=== PATIENT | female | born 1945 | race Two or more races ===

== ENCOUNTER 2016-10-02 08:39 | Observation (INO) | payer MEDICARE, OTHER ==
[~2016-10-02] VITALS: Ht 160 cm; Wt 79.0 kg
[~2016-10-02 08:39] MED LIST: ASPI-664 PO; BIMA2.5D BOTH EYES; CELE200C PO; CHOL2000 PO; CLON-379 PO; CYCL-319 PO; DOXA2TAB PO; EXEN2VIA SQ; EZET10TA3 PO; FEBU80TA PO; HYDR-3498 PO; LEVO50TA83 PO; NALT50TA4 PO; OMEG1CAP30 PO; VALS160T20 PO
[2016-10-02 08:46] VITALS: Ht 160 cm; Wt 79.0 kg
[2016-10-02] MEDS ORDERED: ONDANSETRON 4 MG INJ IV STA ×2 (08:46→09:39)
[2016-10-02] MEDS ORDERED: SOD CHLORIDE 0.9% 500 ML IV STA (08:46)
[2016-10-02 09:09] LABS: ADD SCAN DIFF NO
[2016-10-02 09:19] LABS: BASOPHIL # 0.1 10^3/ul (0.0-0.1); BASOPHILS % 1.3 % (0.0-2.0); EOSINOPHILS # 0.2 10^3/ul (0.0-0.5); EOSINOPHILS % 2.2 % (0.0-7.0); HEMATOCRIT 37.9 % (37.0-47.0); HEMOGLOBIN 12.3 g/dl (12.0-16.0); LYMPHOCYTES # 2.2 10^3/ul (0.8-2.9); MEAN CORPUSCULAR HEMOGLOBIN 29.9 pg (29.0-33.0); MEAN CORPUSCULAR HGB CONC 32.5 g/dl (32.0-37.0); MEAN PLATELET VOLUME 9.8 fl (7.4-10.4); MONOCYTE # 0.4 10^3/ul (0.3-0.9); MONOCYTES % 5.8 % (0.0-11.0); PLATELET COUNT 248 10^3/UL (140-415); RED BLOOD COUNT 4.12 10^6/ul (4.20-5.40); RED CELL DISTRIBUTION WIDTH 14.6 % (11.5-14.5); WHITE BLOOD COUNT 6.9 10^3/ul (4.8-10.8)
[2016-10-02 09:31] LABS: ANION GAP 17 (8-16); BLOOD UREA NITROGEN 25 mg/dl (7-20); CALCIUM 9.2 mg/dl (8.4-10.2); CARBON DIOXIDE 22 mmol/L (21-31); CHLORIDE 110 mmol/L (97-110); CREATININE 0.84 mg/dl (0.44-1.00); GLUCOSE 202 mg/dl (70-220); POTASSIUM 3.9 mmol/L (3.5-5.1); SODIUM 145 mmol/L (135-144)
[2016-10-02] MEDS ORDERED: LORA1TAB ORAL (09:31)
[2016-10-02] MEDS ORDERED: METF500T4 ORAL (09:31)
[2016-10-02] MEDS ORDERED: DOXA4TAB3 ORAL (09:31)
[2016-10-02] MEDS ORDERED: ALLO300T2 ORAL (09:31)
[2016-10-02] MEDS ORDERED: FLUO10CA17 ORAL (09:35)
[2016-10-02] MEDS ORDERED: LIPA1CAP6 PO (09:35)
[2016-10-02] MEDS ORDERED: ATEN-51 ORAL (09:35)
[2016-10-02] MEDS ORDERED: TOPI-44 ORAL (09:35)
[2016-10-02] MEDS ORDERED: LINA145C PO (09:36)
--- NOTE | 2016-10-02 09:37 | RADRPT ---
PROCEDURE: XR Chest. CLINICAL INDICATION: Second V TECHNIQUE: Chest AP portable. COMPARISON: No comparison available. FINDINGS: The mediastinal structures are unremarkable. There is calcification of the thoracic aorta (consiste nt with atherosclerosis). There is mild cardiomegaly. The pulmonary vascularity is normal. There are low lung volumes. There is mild bibasilar subsegmental atelectasis. No consolidation is identi fied. The pleural spaces are unremarkable. There are senescent changes of the axial skeleton. IMPRESSION: Calcification of the thoracic aorta (consistent with atherosclerosis) Mild cardiomegaly Low lung volumes. Bibasilar subsegmental atelectasis RPTAT: HGDB .Trevor Mendosa MD, Date Time Electronically viewed and signed by .Trevor Mendosa MD, on 10/02/2016 09:36 .B/
[2016-10-02] MEDS ORDERED: VALS80TA2 PO (09:38)
--- NOTE | 2016-10-02 09:40 | RADRPT ---
PROCEDURE: CT brain without contrast CLINICAL INDICATION: Syncope TECHNIQUE: CT of the brain without contrast performed on a multidetector CT scanner, with multiplan ar reformats. One or more of the following dose reduction techniques were used: Automated exposure control, adjustment in mA and / or kV according to patient size, use of iterative reconstructive liza hnique. CTDIvol = 44 mGy; DLP = 630 mGy-cm. COMPARISON: None available FINDINGS: No acute intracranial hemorrhage is identified. No extra-axial fluid collection is seen. There is no mass effect. No midline shift is identified. Ventricles and sulci are mildly enlarged compatible with generalized volume loss. There are minimal areas of hypodensity in the periventricular - deep white matter which are nonspeci fic but suggestive of chronic small vessel ischemic changes. Monroe-white differentiation is preserve d. Atherosclerotic calcifications of the proximal intracranial arteries are noted. Osseous structures are unremarkable. Mastoid air cells and imaged paranasal sinuses grossly clear. IMPRESSION: 1. No evidence of acute intracranial pathology. 2. Mild generalized volume loss, with minimal chronic small vessel ischemic changes. RPTAT: AA .Ricky Wiseman MD, MD Date Time Electronically viewed and signed by .Ricky Wiseman MD, MD on 10/02/2016 09:40 .O/
[2016-10-02 09:51] LABS: TROPONIN-I < 0.012 ng/ml (0.00-0.12)
[2016-10-02] MEDS ORDERED: MECLIZINE 12.5 MG TAB PO ONE (10:00)
[2016-10-02] MEDS ORDERED: DILTIAZEM 25 MG INJ IV ONE (10:00)
--- NOTE | 2016-10-02 10:16 | ERA ---
ER Documentation Chief Complaint Date/Time DATE: 10/02/16 TIME: 0846 Chief Complaint nausea,vomiting, dizziness x 1 days HPI 71-year-old female presents to the emergency department for evaluation of dizziness and vomiting. Initially, history was difficult to obtain secondary to language barrier. Family arrived later was able to provide history. Patient was in her usual state of health until the last 8 hours or so which time she awoke with a vertiginous dizziness without headache, focal weakness, numbness. She had nausea with nonbilious nonbloody emesis associated with it. She had no diarrhea. She reports no fevers chills or headache. She continued to feel nauseous and continued to throw up and was brought to the emergency department by ambulance. I have reviewed the director risk pre-hospital care. Pre-hospital vital signs were reviewed. Pre-hospital diagnostic tests were reviewed. ROS All systems reviewed and are negative except as per history of present illness. Medications Home Meds Active Scripts Hydrocodone Bit-Acetaminophen* ([place]*) 5-325 Mg Tab, 1 TAB PO Q6 Y for PAIN, # 20 TAB Prov:DINH FRIED 01/10/15 Cyclobenzaprine Hcl* (Cyclobenzaprine Hcl*) 10 Mg Tablet, 10 MG PO TID, #15 TAB Prov:DINH FRIED 01/10/15 Reported Medications Valsartan* (Diovan*) 80 Mg Tablet, 80 MG PO DAILY, TAB 10/02/16 Linaclotide (LINZESS) 145 Mcg Capsule, 145 MCG PO DAILY, #30 CAP 10/02/16 Eyngln-Mametjzf-Htklbmg* (Manoj MEHTA* 24,000) 24,000 L-76,000-120,000 Unit Capsule.dr, 1 CAP PO WITH MEALS, CAP 10/02/16 Fluoxetine Hcl* (Fluoxetine Hcl*) 10 Mg Capsule, 10 MG ORAL DAILY, #30 10/02/16 Topiramate* (Topiramate*) 25 Mg Tablet, 25 MG ORAL BID, #60 10/02/16 Atenolol* (Atenolol*) 25 Mg Tablet, 25 MG ORAL DAILY, #30 10/02/16 Doxazosin Mesylate* (Doxazosin Mesylate*) 4 Mg Tablet, 4 MG ORAL DAILY, #30 10/02/16 Metformin* (Glucophage*) 500 Mg Tab, 500 MG ORAL BID, #60 10/02/16 Lorazepam* (Lorazepam*) 1 Mg Tablet, 1 MG ORAL DAILY, #30 10/02/16 Allopurinol* (Allopurinol*) 300 Mg Tablet, 300 MG ORAL DAILY, #30 10/02/16 Bimatoprost* ([place]*) 0.01%-2.5 Ml Opht Drops, 1 DROP BOTH EYES HS, EA 01/10/15 Cholecalciferol* (Vitamin D3*) 2,000 Unit Cap, 2000 UNIT PO DAILY, CAP 01/10/15 Fish Oil/[place]-3 Fatty Acids ([place] 3 Fish Oil Softgel) 1 Cap.ec Capsule.dr, 2000 MG PO DAILY, CAP 01/10/15 Ezetimibe* (Zetia*) 10 Mg Tablet, 10 MG PO HS, TAB 01/10/15 Naltrexone Hcl (Depade) 50 Mg Tablet, 50 MG PO DAILY 01/10/15 Celecoxib* (Celebrex*) 200 Mg Capsule, 200 MG PO DAILY, CAP 01/10/15 Febuxostat* (Uloric*) 80 Mg Tablet, 80 MG PO DAILY, TAB 01/10/15 Aspirin (Low Dose Aspirin) 81 Mg Tablet.dr, 81 MG PO DAILY 01/10/15 Levothyroxine Sodium* (Synthroid*) 50 Mcg Tablet, 50 MCG PO AC BREAKFAST, TAB 01/10/15 Clonidine Hcl* (Clonidine Hcl*) 0.1 Mg Tab, 0.1 MG PO DAILY Y for ELEVATED BLOOD PRESSURE, TAB 01/10/15 Exenatide Microspheres (Bydureon) 2 Mg Vial, 2 MG SQ Q7D, VIAL 01/10/15 Discontinued Reported Medications Doxazosin Mesylate* (Doxazosin Mesylate*) 2 Mg Tablet, 2 MG PO BID, TAB 01/10/15 Valsartan* (Diovan*) 160 Mg Tablet, 160 MG PO BID, TAB 01/10/15 Allergies Allergies: Coded Allergies: No Known Allergy (Unverified , 01/10/15) PMhx/Soc History of Surgery: No Anesthesia Reaction: No Hx Neurological Disorder: No Hx Respiratory Disorders: No Hx Cardiac Disorders: No Hx Psychiatric Problems: No Hx Miscellaneous Medical Probl: Yes (dm) Hx Alcohol Use: No Hx Substance Use: No Hx Tobacco Use: No Smoking Status: Never smoker FmHx Noncontributory for chief complaint Physical Exam Vitals Vital Signs Date Time Temp Pulse Resp B/P Pulse Ox O2 Delivery O2 Flow Rate FiO2 10/02/16 08:46 98.1 64 18 147/64 99 Physical Exam GENERAL: The patient is well developed and appropriate for usual state of health in no apparent distress HEENT: Pupils equal, round, and reactive to light. EOMI. There is no scleral icterus. NECK: C-spine is soft and supple, there is no meningismus. There is no cervical lymphadenopathy. LUNGS: Clear to auscultation bilaterally. There are no rales, wheezes or rhonchi. HEART: Regular rate and rhythm, no murmurs, clicks, rubs or gallops. ABDOMEN: Soft, non-tender, non-distended. There are bowel sounds in all four quadrants. No rebound or guarding. EXTREMITIES: There is no peripheral cyanosis or edema. No focal swelling or erythema. NEURO: The patient moves all four extremities with 5/5 strength. Cranial nerves II - XII are intact. Normal gait. Alert and oriented. Patient has normal finger to nose bilaterally. Patient has nystagmus bilaterally. SKIN: There is no apparent rash or petechiae. HEME/LYMPHATIC: There is no evidence of excessive bruising or lymphedema. PSYCHIATRIC: The patient does not appear anxious or depressed. Result Diagram: 10/02/16 0850 10/02/16 0850 Results 24 hrs Laboratory Tests Test 10/02/16 08:50 White Blood Count 6.910^3/ul Red Blood Count 4.1210^6/ul Hemoglobin 12.3g/dl Hematocrit 37.9% Mean Corpuscular Volume 92.0fl Mean Corpuscular Hemoglobin 29.9pg Mean Corpuscular Hemoglobin Concent 32.5g/dl Red Cell Distribution Width 14.6% Platelet Count 89304^3/UL Mean Platelet Volume 9.8fl Neutrophils % 58.0% Lymphocytes % 32.0% Monocytes % 5.8% Eosinophils % 2.2% Basophils % 1.3% Nucleated Red Blood Cells % 0.0/100WBC Neutrophils # 4.010^3/ul Lymphocytes # 2.210^3/ul Monocytes # 0.410^3/ul Eosinophils # 0.210^3/ul Basophils # 0.110^3/ul Nucleated Red Blood Cells # 0.010^3/ul Sodium Level 145mmol/L Potassium Level 3.9mmol/L Chloride Level 110mmol/L Carbon Dioxide Level 22mmol/L Anion Gap 17 Blood Urea Nitrogen 25mg/dl Creatinine 0.84mg/dl Glucose Level 202mg/dl Calcium Level 9.2mg/dl Troponin I < 0.012ng/ml Current Medications Medications (Trade) Dose Ordered Sig/Mi Route PRN Reason Start Time Stop Time Status Last Admin Dose Admin Sodium Chloride (NS) 500 ml @ 500 mls/hr Q1H STAT IV 10/02/16 08:46 10/02/16 09:45 DC 10/02/16 08:58 Ondansetron HCl (Zofran Inj) 4 mg ONCE STAT IV 10/02/16 08:46 10/02/16 08:48 DC 10/02/16 08:58 Ondansetron HCl (Zofran Inj) 4 mg ONCE STAT IV 10/02/16 09:39 10/02/16 09:40 DC 10/02/16 09:45 Meclizine HCl (Antivert) 25 mg ONCE ONCE PO 10/02/16 10:00 10/02/16 10:01 DC Diltiazem HCl (Cardizem Iv) 10 mg ONCE ONCE IV 10/02/16 10:00 10/02/16 10:01 DC Procedures/MDM Patient was taken to a room, seen and evaluated. Comfort measures were initiated. Diagnostic tests were ordered and reviewed. 3 LEAD RHYTHM STRIP: Normal sinus rhythm without ectopy. Patient then went into a rapid atrial fibrillation in the 120s-130s. She then would spontaneously convert back to normal sinus rhythm. EK lead EKG reviewed by myself: Atrial fibrillation with rapid ventricular response Normal [place] and intervals Nonspecific ST and T-wave changes Impression: Nonspecific EKG with atrial fibrillation RADIOLOGY: reviewed with the radiologist CONSULTATION: hospitalist was notified for admission REEVALUATION: Patient remained neurologically nonfocal but continued to be somewhat symptomatic. Diagnostic findings including the atrial fibrillation were discussed with the family and decision was made to admit for observation MEDICAL DECISION MAKIN-year-old female presents the emergency department with vomiting and nystagmus and likely vertigo. Complicating this is the patient's intermittent atrial fibrillation. Although the patient medical presentation is more likely secondary to vertigo, because of the rapid A. fib, I am concerned that this may be cardiac related. Patient's first troponin is reassuring and the patient does not appear to be clinically ischemic from a cardiac standpoint. Patient has no obvious evidence of stroke on clinical examination, but with a history of intermittent A. fib, it is possible the patient has had an occipital stroke with no other significant findings other than the vertigo. At this time, patient will be admitted for further observation management and care. Departure Diagnosis: Primary Impression: Vertigo Additional Impression: Atrial fibrillation Condition: BLANCA Peter October 02, 2016 10:16
[2016-10-02] MEDS ORDERED: ASPIRIN 325 MG TAB PO ONE (10:30)
[2016-10-02] MEDS ORDERED: DEXTROSE 50% 50 ML SYRINGE IV PRN ×2 (11:00)
[2016-10-02] MEDS ORDERED: GLUCOSE GEL 15 GRAM TUBE PO PRN ×2 (11:00)
[2016-10-02] MEDS ORDERED: HYDROCODONE/APAP (5/325) TAB PO PRN (11:00)
[2016-10-02] MEDS ORDERED: GLUCAGON 1 MG INJ IM PRN (11:00)
[2016-10-02] MEDS: [UNRECOGNIZED DRUG - OTHER] XX SCH ×2 (11:00→19:00)
[2016-10-02] MEDS ORDERED: GLUCOSE GEL 15 GRAM TUBE BUCCAL PRN (11:00)
[2016-10-02] MEDS: LORAZEPAM 1 MG TAB PO PRN ×2 (11:01→21:57)
[2016-10-02] MEDS ORDERED: LORAZEPAM 2 MG INJ IV ONE ×2 (11:30→13:00)
[2016-10-02 11:31] LABS: ALBUMIN 3.9 g/dl (3.3-4.9)
[2016-10-02 11:33] LABS: BILIRUBIN,INDIRECT 0.5 mg/dl (0-1.1); BILIRUBIN,TOTAL 0.5 mg/dl (0.2-1.3)
[2016-10-02 11:34] LABS: MAGNESIUM 1.8 mg/dl (1.7-2.5); TOTAL PROTEIN 6.4 g/dl (6.1-8.1)
[2016-10-02 11:51] LABS: PARTIAL THROMBOPLASTIN TIME 26.2 Sec (25.0-35.0); PROTIME 13.2 Sec (12.2-14.2)
[2016-10-02 11:57] VITALS: TEMP 98.3
[2016-10-02] MEDS: CREON (24K-76K-120K) 1 CAP PO SCH ×2 (12:00→17:55)
[2016-10-02] MEDS: INSULIN ASPART [NOVOLOG] 3 ML PEN SC SCH ×3 (12:00→21:00)
--- NOTE | 2016-10-02 12:30 | RADRPT ---
PROCEDURE: US Carotids. CLINICAL INDICATION: Dizziness. Syncope. TECHNIQUE: Sonographic images of the bilateral carotid arteries were obtained using khan scale and color Doppler imaging. The images were reviewed on a PACS workstation. COMPARISON: None available. FINDINGS: Right: CCA 56.6 cm/sec Prox ICA 35.1 cm/sec Mid ICA 62 cm/sec Dist ICA 40 cm/sec ECA 84 cm/sec ICA/CCA 1.9 Left: CCA 44.1-50.6 cm/sec Prox ICA 46.7 cm/sec Mid ICA 93.7 cm/sec Dist ICA 64.9 cm/sec ECA 101.8 cm/sec ICA/CCA 1.9 Antegrade flow is seen within the vertebral arteries bilaterally. There is mild calcified plaque wit hin the carotid bulbs bilaterally. There is no flow-limiting stenosis or thrombosis. IMPRESSION: 1. Mild calcified plaque within the carotid bulbs bilaterally, but no evidence for hemodynamically significant stenosis - validated velocity measurements with angiographic measurements, velocity crit eria are extrapolated from diameter data as defined by the Society of Radiologists in Ultrasound Con sensus Conference Radiology 2003; 229;340-346. This study does indirectly reference the measurement of the distal ICA diameter as the denominator for stenosis measurement. 2. Antegrade flow seen within the vertebral arteries bilaterally. RPTAT: EE .Gurpreet Horta MD, MD Date Time Electronically viewed and signed by .Gurpreet Horta MD, MD on 10/02/2016 12:29 .P/
[2016-10-02] MEDS ORDERED: MECLIZINE 12.5 MG TAB PO PRN (13:00)
[2016-10-02 13:41] LABS: THYROID STIMULATING HORMONE 1.15 MIU/L (0.465-4.680)
[2016-10-02 13:54] VITALS: BP 151/68; RESP 18
[2016-10-02 14:09] VITALS: PULSE 83
--- NOTE | 2016-10-02 15:50 | CONS ---
DATE OF ADMISSION: 10/02/2016 DATE OF CONSULTATION: 10/02/2016 TYPE OF CONSULTATION: Neurology. Thank you, Dr. Panda, for your kind referral for evaluation of vertigo. HISTORY OF PRESENT ILLNESS: The patient was evaluated in the emergency room. She is a 71-year-old lady with past medical history of diabetes, dyslipidemia, hypertension, dysrhyt hmias, depression. The patient stated that in the past, she had few episodes of mild vertiginous se nsation. Last episode a few months ago. This morning, she woke up and did not feel good. She thought that maybe she is hypoglycemic and got up to get a peach and after walking a few steps and eating the peach, suddenly she felt extremely d chong, fell to the ground, started vomiting, called for help. Dizziness has improved after the fall, but she still felt very weak generally with severe nausea and vomiting. CAT scan in the emergency room did not show any acute abnormality. ER note describes presence of nystagmus but did not say wh ich side . She received meclizine, Zofran, and overall doing much better, essentially not havi ng any complaints by the time of my examination. MEDICATIONS: Currently, she is on: 1. Allopurinol. 2. Aspirin 81. 3. Atenolol. 4. Vitamin D. 5. Cardura. 6. Uloric. 7. Fish oil. 8. Prozac 10. 9. Diovan. 10. She was put on Lovenox for DVT prevention. 11. She is on Synthroid. 12. Zetia. 13. Metformin. 14. Topamax 25 twice daily prior to admission. 15. She received meclizine only once and does not have any dizziness anymore. LABORATORY DATA: Shows essentially normal CBC. Comprehensive metabolic panel: 25 BUN, creatinine 0.84. Troponins negative. TSH pending. Normal PT and PTT. ALLERGIES: NONE. SOCIAL HISTORY: No alcohol, tobacco, drug use. FAMILY HISTORY: Noncontributory. REVIEW OF SYSTEMS: All pertinent positives include the above history of present illness. PHYSICAL EXAMINATION: Today: VITAL SIGNS: 98.3 temperature, pulse 80, respiration 18, 135/73 blood pressure. GENERAL: Not in acute distress, lying in bed. HEENT: Normocephalic, atraumatic head. NECK: No carotid bruits. No thyromegaly. LUNGS: Clear to auscultation bilaterally. CARDIAC: Normal cardiac rhythm and sounds. ABDOMEN: Soft, nontender. EXTREMITIES: No cyanosis, clubbing, or edema. NEUROLOGIC: She is awake, alert, and oriented x3 with fluent speech. Cranial nerve examination dali ws intact visual guerrire bilaterally. Pupils round, reactive from 3 to 2 mm bilaterally. Extraocula r movements intact without nystagmus, maybe a few beats of right horizontal nystagmus on the e xtreme of the right gaze was seen. Symmetrical face. Preserved facial strength and sensation. Ton ninfa is in midline. Palate elevates symmetrically. Motor strength examination seems to be preserved in all extremities. Normal bulk, tone, and strength. Sensory examination intact grossly to light touch and pain. Deep tendon reflexes 2+ upper extremities and knees, absent ankle jerks. Downgoing toes bilaterally. Coordination preserved on adutnx-zm-pibyhx testing. No dysmetria or tremor. Ga it was not assessed. IMPRESSION: Acute vertigo, seemed to resolve by now. The patient did have some inability to get up with onset of the vertigo. According to the family, she walked a few steps to the bathroom here an d was doing relatively good. I forgot to mention that patient had episode of atrial fibrillation in the hospital which spontaneously converted to sinus rhythm. To exclude stroke as etiology of her problem, MRI of the brain should be done and was already reques shelia by the primary. Continue aspirin, statin. Continue to keep patient euglycemic. It is usually okay to allow elevated blood pressure in the first few days after acute stroke but given that I am n ot sure that the episode was stroke or transient ischemic attack related but most likely a benign pe ripheral positional vertigo, I think it is okay to keep patient normotensive as well. We will get p hysical therapy to ambulate her, may restart meclizine as needed. Thank you very much for this interesting consultation. Dictated By: ROSARIO BROWNLEE/JILLIAN Conf#: [id number] DID#: [id number]
[2016-10-02 16:13] VITALS: PULSE 81
[2016-10-02 17:47] LABS: CREATINE KINASE 70 IU/L (23-200)
[2016-10-02 17:54] LABS: CK-MB 0.87 ng/ml (0.0-2.4)
[2016-10-02 18:09] LABS: TROPONIN-I < 0.012 ng/ml (0.00-0.12)
--- NOTE | 2016-10-02 18:27 | HP ---
Date/Time of Note Date/Time of Note DATE: 10/02/16 TIME: 18:13 Assessment/Plan VTE Prophylaxis VTE Prophylaxis Intervention: LMWH Lines/Catheters IV Catheter Type (from Nrs): Saline Lock Assessment/Plan Assessment/Plan 71-year-old female who presented with dizziness nausea vomiting now managed as follows: 1. Acute onset dizziness 2. Atrial fibrillation with fluctuating rate control 3. R/o ACS 4. High blood pressure with good control 5. Chronic Glaucoma 6. Dyslipidemia 7. Depression 8. Hypothyroidism 9. Chronic constipation 10. Diabetes type 2 PLAN: * Admit to telemetry * workup dizziness with MRI of the brain, carotid Dopplers, and get neurology consult as well. 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 Lori watkins * resume all previous home medications * Start calorie controlled diet and add sliding scale insulin * Patient on Natrexone, f/u with family re: indication * Further interventions per clinical course * Prophylaxis with Lovenox and Pepcid HPI/ROS Admit Date/Time Admit Date/Time October 02, 2016 at 10:37 Hx of Present Illness This is a 71-year-old female who was brought into the emergency room by ambulance with reports of dizziness and vomiting. 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 Apparently the patient had presented with an 8 hour history of dizziness upon awakening without focal weakness headaches or numbness. It was however associated with nausea and vomiting but without chills or fevers. She does have a history of atrial fibrillation and in the emergency room she was found to have a rapid heart rate. Her dizziness did not improve despite emergency room care and as such she is being admitted for further workup and management. ROS ROS: HEENT: denies headaches, any vertigo, any sore throat or rhinorrhea. Eyes: No double or blurred vision or eye pain. CARDIOVASCULAR: no chest discomfort, chest pain, irregular rhythm, tachycardia or diaphoresis. RESPIRATORY: denies cough or shortness of breath or wheezing. GENITOURINARY: denies dysuria, frequency, urgency or hematuria. MUSCULOSKELETAL: also denies myalgias, arthralgias or edema. SKIN: denies rash or jaundice NEUROLOGIC: denies weakness, dizziness, focal neurological change or headache. PSYCHIATRIC: denies history of depression in the past, any suicidal ideation. substance abuse. ENDOCRINE: denies polyuria, polydipsia or hot or cold intolerance. HEMATOLOGIC: denies history of easy bruising, anemia or eczema. PMH/Family/Social Past Medical History 1. High blood pressure 2. Glaucoma 3. Dyslipidemia 4. Depression 5. Hypothyroidism 6. Chronic constipation 7. Diabetes type 2 8. Paroxysmal atrial fibrillation Past Surgical History Past Surgical Hx: cholecystectomy Family History Significant Family History: no pertinent family hx Social History Alcohol Use: none Smoking Status: Never smoker Drug Use: none Exam/Review of Systems Vital Signs Vitals Vital Signs Date Time Temp Pulse Resp B/P Pulse Ox O2 Delivery O2 Flow Rate FiO2 10/02/16 16:13 81 10/02/16 13:54 97.9 18 151/68 92 10/02/16 11:57 Room Air Exam Exam GENERAL: Patient is alert, oriented x 3, in no apparent distress; does not appear acutely or chronically ill. Patient is able to sit up unassisted.Patient makes good eye contact, is conversant, interactive, coherent. Patient appears calm and comfortable and is able to follow commands. HEENT: Oropharynx is clear. There is no carotid bruit, no masses. Patient's pupils are equal, round and reactive to light bilaterally. Extraocular motions are intact. There is no scleral icterus. There is no facial asymmetry. NECK: Supple. LUNGS: Clear to auscultation bilaterally with good air entry. No Wheezes or crackles. HEART: S1, S2. No murmur, gallops or rubs. Regular rate and rhythm. ABDOMEN: Soft, nontender. Normoactive bowel sounds. There are no stigmata of chronic liver disease. BACK: no costovertebral angle tenderness. GENITOURINARY: Deferred. EXTREMITIES: No edema. There is no cyanosis, clubbing. There are 2+ pulses bilaterally distally. NEUROLOGIC: The patient has no lateralizing signs. Cranial nerves II-XII are intact, patient is lethargic SKIN: Otherwise, unremarkable. Labs Result Diagram: 10/02/16 0850 10/02/16 0850 Medications Medications Current Medications Allopurinol (Zyloprim) 300 mg DAILY PO ; Start 10/03/16 at 09:00 Aspirin (Halfprin) 81 mg DAILY PO ; Start 10/03/16 at 09:00 Atenolol (Tenormin) 25 mg DAILY PO ; Start 10/03/16 at 09:00 Bimatoprost (Lumigan 0.01% Oph) 1 drop HS BOTH EYES ; Start 10/02/16 at 21:00 Cholecalciferol (Vitamin D) 2,000 unit DAILY PO ; Start 10/03/16 at 09:00 Doxazosin Mesylate (Cardura) 4 mg DAILY PO ; Start 10/03/16 at 09:00 EZETIMIBE (Zetia) 10 mg HS PO ; Start 10/02/16 at 21:00 Febuxostat (Uloric) 80 mg DAILY PO ; Start 10/03/16 at 09:00 Fish Oil (Fish Oil) 2,000 mg DAILY PO ; Start 10/03/16 at 09:00 Fluoxetine HCl (Prozac) 10 mg DAILY PO ; Start 10/03/16 at 09:00 Acetaminophen/ Hydrocodone Bitart (Camak (5/325)) 1 tab Q6 PRN PO PAIN; Start 10/02/16 at 11:00 Lorazepam (Ativan) 1 mg DAILY PRN PO anxiety Last administered on 10/02/16t 11: 01; Admin Dose 1 MG; Start 10/02/16 at 11:00 Metformin HCl (Glucophage) 500 mg BID PO ; Start 10/02/16 at 21:00 Topiramate (Topamax) 25 mg BID PO ; Start 10/02/16 at 21:00 Valsartan (Diovan) 80 mg DAILY PO ; Start 10/03/16 at 09:00 Miscellaneous Information 145 mcg DAILY XX ; Start 10/03/16 at 09:00; Status UNV Enoxaparin Sodium (Lovenox) 40 mg DAILY SC ; Start 10/03/16 at 09:00 Miscellaneous Information 1 ea NOTE XX ; Start 10/02/16 at 11:00 Glucose (Glutose) 15 gm Q15M PRN PO DECREASED GLUCOSE; Start 10/02/16 at 11:00 Glucose (Glutose) 22.5 gm Q15M PRN PO DECREASED GLUCOSE; Start 10/02/16 at 11: 00 Dextrose (D50w Syringe) 25 ml Q15M PRN IV DECREASED GLUCOSE; Start 10/02/16 at 11:00 Dextrose (D50w Syringe) 50 ml Q15M PRN IV DECREASED GLUCOSE; Start 10/02/16 at 11:00 Glucagon (Glucagen) 1 mg Q15M PRN IM DECREASED GLUCOSE; Start 10/02/16 at 11:00 Glucose (Glutose) 15 gm Q15M PRN BUCCAL DECREASED GLUCOSE; Start 10/02/16 at 11 :00 Miscellaneous Information (*Order Clarification Bulletin) MEDICATION REQUIRES CLARIFICATION: Q8H XX ; Start 10/02/16 at 11:00 Meclizine HCl (Antivert) 12.5 mg Q6H PRN PO vertigo; Start 10/02/16 at 13:00 Procedures Procedures Laboratory Tests Test 10/02/16 08:50 10/02/16 14:13 10/02/16 16:45 White Blood Count 6.910^3/ul Red Blood Count 4.1210^6/ul Hemoglobin 12.3g/dl Hematocrit 37.9% Mean Corpuscular Volume 92.0fl Mean Corpuscular Hemoglobin 29.9pg Mean Corpuscular Hemoglobin Concent 32.5g/dl Red Cell Distribution Width 14.6% Platelet Count 63883^3/UL Mean Platelet Volume 9.8fl Neutrophils % 58.0% Lymphocytes % 32.0% Monocytes % 5.8% Eosinophils % 2.2% Basophils % 1.3% Nucleated Red Blood Cells % 0.0/100WBC Neutrophils # 4.010^3/ul Lymphocytes # 2.210^3/ul Monocytes # 0.410^3/ul Eosinophils # 0.210^3/ul Basophils # 0.110^3/ul Nucleated Red Blood Cells # 0.010^3/ul Prothrombin Time 13.2Sec Prothrombin Time Ratio 1.0 INR International Normalized Ratio 1.00 Activated Partial Thromboplast Time 26.2Sec Sodium Level 145mmol/L Potassium Level 3.9mmol/L Chloride Level 110mmol/L Carbon Dioxide Level 22mmol/L Anion Gap 17 Blood Urea Nitrogen 25mg/dl Creatinine 0.84mg/dl Glucose Level 202mg/dl Calcium Level 9.2mg/dl Magnesium Level 1.8mg/dl Total Bilirubin 0.5mg/dl Direct Bilirubin 0.00mg/dl Indirect Bilirubin 0.5mg/dl Aspartate Amino Transf (AST/SGOT) 21IU/L Alanine Aminotransferase (ALT/SGPT) 33IU/L Alkaline Phosphatase 46IU/L Troponin I < 0.012ng/ml < 0.012ng/ml Total Protein 6.4g/dl Albumin 3.9g/dl Thyroid Stimulating Hormone (TSH) 1.150MIU/L Bedside Glucose 167mg/dL Creatine Kinase 70IU/L Creatine Kinase Index 1.2 Creatinine Kinase MB (Mass) 0.87ng/ml Current Medications Medications (Trade) Dose Ordered Sig/Mi Route PRN Reason Start Time Stop Time Status Last Admin Dose Admin Sodium Chloride (NS) 500 ml @ 500 mls/hr Q1H STAT IV 10/02/16 08:46 10/02/16 09:45 DC 10/02/16 08:58 500 MLS/HR Ondansetron HCl (Zofran Inj) 4 mg ONCE STAT IV 10/02/16 08:46 10/02/16 08:48 DC 10/02/16 08:58 4 MG Ondansetron HCl (Zofran Inj) 4 mg ONCE STAT IV 10/02/16 09:39 10/02/16 09:40 DC 10/02/16 09:45 4 MG Meclizine HCl (Antivert) 25 mg ONCE ONCE PO 10/02/16 10:00 10/02/16 10:01 DC 10/02/16 11:01 25 MG Diltiazem HCl (Cardizem Iv) 10 mg ONCE ONCE IV 10/02/16 10:00 10/02/16 10:01 DC Aspirin (Aspirin) 325 mg ONCE ONCE PO 10/02/16 10:30 10/02/16 10:31 DC 10/02/16 11:02 325 MG Insulin Aspart (Novolog Insulin Pen) NOVOLOG *MODERATE* ALGORITHM WITH MEALS BEDTIME SC 10/02/16 12:00 Miscellaneous Information (* Miscellaneous Pharmacy Order) HYPOGLYCEMIA PROTOCOL w... ONCE ONCE XX 10/02/16 11:00 10/02/16 11:01 DC Miscellaneous Information (* Miscellaneous Pharmacy Order) Discontinue all previ... ONCE ONCE XX 10/02/16 11:00 10/02/16 11:01 DC Allopurinol (Zyloprim) 300 mg DAILY PO 10/03/16 09:00 Aspirin (Halfprin) 81 mg DAILY PO 10/03/16 09:00 Atenolol (Tenormin) 25 mg DAILY PO 10/03/16 09:00 Bimatoprost (Lumigan 0.01% Oph) 1 drop HS BOTH EYES 10/02/16 21:00 Cholecalciferol (Vitamin D) 2,000 unit DAILY PO 10/03/16 09:00 Doxazosin Mesylate (Cardura) 4 mg DAILY PO 10/03/16 09:00 EZETIMIBE (Zetia) 10 mg HS PO 10/02/16 21:00 Febuxostat (Uloric) 80 mg DAILY PO 10/03/16 09:00 Fish Oil (Fish Oil) 2,000 mg DAILY PO 10/03/16 09:00 Fluoxetine HCl (Prozac) 10 mg DAILY PO 10/03/16 09:00 Acetaminophen/ Hydrocodone Bitart (Camak (5/325)) 1 tab Q6 PRN PO PAIN 10/02/16 11:00 Levothyroxine Sodium (Synthroid) 50 mcg AC BREAKFAST PO 10/03/16 07:00 Amylase/Lipase/ Protease (Creon ([id number])) 1 cap WITH MEALS PO 10/02/16 12:00 Lorazepam (Ativan) 1 mg DAILY PRN PO anxiety 10/02/16 11:00 10/02/16 11:01 1 MG Metformin HCl (Glucophage) 500 mg BID PO 10/02/16 21:00 Topiramate (Topamax) 25 mg BID PO 10/02/16 21:00 Valsartan (Diovan) 80 mg DAILY PO 10/03/16 09:00 Miscellaneous Information 145 mcg DAILY XX 10/03/16 09:00 UNV Enoxaparin Sodium (Lovenox) 40 mg DAILY SC 10/03/16 09:00 Miscellaneous Information 1 ea NOTE XX 10/02/16 11:00 Glucose (Glutose) 15 gm Q15M PRN PO DECREASED GLUCOSE 10/02/16 11:00 Glucose (Glutose) 22.5 gm Q15M PRN PO DECREASED GLUCOSE 10/02/16 11:00 Dextrose (D50w Syringe) 25 ml Q15M PRN IV DECREASED GLUCOSE 10/02/16 11:00 Dextrose (D50w Syringe) 50 ml Q15M PRN IV DECREASED GLUCOSE 10/02/16 11:00 Glucagon (Glucagen) 1 mg Q15M PRN IM DECREASED GLUCOSE 10/02/16 11:00 Glucose (Glutose) 15 gm Q15M PRN BUCCAL DECREASED GLUCOSE 10/02/16 11:00 Miscellaneous Information (*Order Clarification Bulletin) MEDICATION REQUIRES CLARIFICATION: Q8H XX 10/02/16 11:00 Lorazepam (Ativan) 0.5 mg ONCE ONCE IV 10/02/16 11:30 10/02/16 11:31 DC Lorazepam (Ativan) 0.5 mg ONCE ONCE IV 10/02/16 13:00 10/02/16 13:01 DC 10/02/16 12:48 0.5 MG Meclizine HCl (Antivert) 12.5 mg Q6H PRN PO vertigo 10/02/16 13:00 PROCEDURE: US Carotids. CLINICAL INDICATION: Dizziness. Syncope. TECHNIQUE: Sonographic images of the bilateral carotid arteries were obtained using monroe scale and color Doppler imaging. The images were reviewed on a PACS workstation. COMPARISON: None available. FINDINGS: Right: CCA 56.6 cm/sec Prox ICA 35.1 cm/sec Mid ICA 62 cm/sec Dist ICA 40 cm/sec ECA 84 cm/sec ICA/CCA 1.9 Left: CCA 44.1-50.6 cm/sec Prox ICA 46.7 cm/sec Mid ICA 93.7 cm/sec Dist ICA 64.9 cm/sec ECA 101.8 cm/sec ICA/CCA 1.9 Antegrade flow is seen within the vertebral arteries bilaterally. There is mild calcified plaque within the carotid bulbs bilaterally. There is no flow- limiting stenosis or thrombosis. IMPRESSION: 1. Mild calcified plaque within the carotid bulbs bilaterally, but no evidence for hemodynamically significant stenosis - validated velocity measurements with angiographic measurements, velocity criteria are extrapolated from diameter data as defined by the Society of Radiologists in Ultrasound Consensus Conference Radiology 2003; 229;340-346. This study does indirectly reference the measurement of the distal ICA diameter as the denominator for stenosis measurement. 2. Antegrade flow seen within the vertebral arteries bilaterally. RPTAT: EE .Gurpreet Horta MD, MD Date Time Electronically viewed and signed by .Gurpreet Horta MD, MD on 10/02/2016 12:29 .P/ CC: WILMER FORTUNE PROCEDURE: CT brain without contrast CLINICAL INDICATION: Syncope TECHNIQUE: CT of the brain without contrast performed on a multidetector CT scanner, with multiplanar reformats. One or more of the following dose reduction techniques were used: Automated exposure control, adjustment in mA and / or kV according to patient size, use of iterative reconstructive technique. CTDIvol = 44 mGy; DLP = 630 mGy-cm. COMPARISON: None available FINDINGS: No acute intracranial hemorrhage is identified. No extra-axial fluid collection is seen. There is no mass effect. No midline shift is identified. Ventricles and sulci are mildly enlarged compatible with generalized volume loss. There are minimal areas of hypodensity in the periventricular - deep white matter which are nonspecific but suggestive of chronic small vessel ischemic changes. Monroe-white differentiation is preserved. Atherosclerotic calcifications of the proximal intracranial arteries are noted. Osseous structures are unremarkable. Mastoid air cells and imaged paranasal sinuses grossly clear. IMPRESSION: 1. No evidence of acute intracranial pathology. 2. Mild generalized volume loss, with minimal chronic small vessel ischemic changes. RPTAT: AA .Ricky Wiseman MD, MD Date Time Electronically viewed and signed by .Ricky Wiseman MD, MD on 10/02/2016 09:40 .O/ CC: BLANCA POWELL PROCEDURE: XR Chest. CLINICAL INDICATION: Second V TECHNIQUE: Chest AP portable. COMPARISON: No comparison available. FINDINGS: The mediastinal structures are unremarkable. There is calcification of the thoracic aorta (consistent with atherosclerosis). There is mild cardiomegaly. The pulmonary vascularity is normal. There are low lung volumes. There is mild bibasilar subsegmental atelectasis. No consolidation is identified. The pleural spaces are unremarkable. There are senescent changes of the axial skeleton. IMPRESSION: Calcification of the thoracic aorta (consistent with atherosclerosis) Mild cardiomegaly Low lung volumes. Bibasilar subsegmental atelectasis RPTAT: HGDB .Trevor Mendosa MD, MD Date Time Electronically viewed and signed by .Trevor Mendosa MD, MD on 10/02/2016 09:36 .B/ CC: BLANCA POWELL I reviewed EKG Rate: Within normal limits Rhythm: Atrial fibrillation Note: No ST elevation or depressions noted concerning for acute ischemic event. WILMER FORTUNE October 02, 2016 18:25
[2016-10-02] MEDS ORDERED: NON-FORMULARY/PATIENT OWN MED (Exenatide Microspheres (Bydureon) 2 MG) SQ SCH (18:30)
[2016-10-02 19:58] VITALS: BP 146/73; RESP 18
[2016-10-02 20:16] LABS: CREATINE KINASE 72 IU/L (23-200)
[2016-10-02 20:24] LABS: CK-MB 0.92 ng/ml (0.0-2.4)
[2016-10-02 20:25] VITALS: PULSE 81
[2016-10-02 20:27] LABS: TROPONIN-I < 0.012 ng/ml (0.00-0.12)
[2016-10-02] MEDS: metFORMIN 500 MG TAB PO SCH (21:00)
[2016-10-02] MEDS ORDERED: DOXAZOSIN 4 MG TAB PO SCH (21:00)
[2016-10-02] MEDS ORDERED: EZETIMIBE 10 MG TAB PO SCH (21:00)
[2016-10-02] MEDS ORDERED: BIMATOPROST 0.01% 2.5 ML BTL BOTH EYES SCH (21:00)
[2016-10-02] MEDS: TOPIRAMATE 25 MG TAB PO SCH (21:00)
[2016-10-03] VITALS (11 sets, daily range): BP systolic 106–143; BP diastolic 57–71; PULSE 60–89; RESP 16–20
[2016-10-03] MEDS: [UNRECOGNIZED DRUG - OTHER] XX SCH ×2 (02:24→11:00)
[2016-10-03] MEDS ORDERED: LEVOTHYROXINE 50 MCG TAB PO SCH (07:00)
[2016-10-03] MEDS: CREON (24K-76K-120K) 1 CAP PO SCH ×2 (07:55→12:23)
[2016-10-03] MEDS: INSULIN ASPART [NOVOLOG] 3 ML PEN SC SCH ×2 (07:55→11:50)
[2016-10-03] MEDS ORDERED: NON-FORMULARY/PATIENT OWN MED (Linaclotide (Linzess) 145 MCG) XX SCH (09:00)
[2016-10-03] MEDS ORDERED: ASPIRIN (EC) 81 MG TAB PO SCH ×2 (09:00→21:00)
[2016-10-03] MEDS ORDERED: DOXAZOSIN 4 MG TAB PO SCH (09:00)
[2016-10-03] MEDS ORDERED: ALLOPURINOL 300 MG TAB PO SCH ×2 (09:00→21:00)
[2016-10-03] MEDS ORDERED: ENOXAPARIN 40 MG/0.4 ML SYG SC SCH (09:00)
[2016-10-03] MEDS ORDERED: VALSARTAN 80 MG TAB PO SCH (09:00)
[2016-10-03] MEDS ORDERED: CHOLECALCIFEROL 2,000 UNIT CAP PO SCH ×2 (09:00→21:00)
[2016-10-03] MEDS ORDERED: FLUOXETINE 10 MG CAP PO SCH ×2 (09:00→21:00)
[2016-10-03] MEDS: TOPIRAMATE 25 MG TAB PO SCH (09:00)
[2016-10-03] MEDS ORDERED: FISH OIL 1,000 MG CAP PO SCH (09:00)
[2016-10-03] MEDS ORDERED: ATENOLOL 25 MG TAB PO SCH (09:00)
[2016-10-03] MEDS ORDERED: FEBUXOSTAT 40 MG TABLET PO SCH (09:00)
[2016-10-03] MEDS: metFORMIN 500 MG TAB PO SCH (09:12)
[2016-10-03 09:43] LABS: ADD SCAN DIFF NO
[2016-10-03 09:53] LABS: BASOPHIL # 0.1 10^3/ul (0.0-0.1); BASOPHILS % 0.8 % (0.0-2.0); EOSINOPHILS # 0.1 10^3/ul (0.0-0.5); EOSINOPHILS % 1.5 % (0.0-7.0); HEMATOCRIT 35.9 % (37.0-47.0); HEMOGLOBIN 11.7 g/dl (12.0-16.0); LYMPHOCYTES # 1.8 10^3/ul (0.8-2.9); LYMPHOCYTES % 22.7 % (15.0-51.0); MEAN CORPUSCULAR HEMOGLOBIN 29.5 pg (29.0-33.0); MEAN CORPUSCULAR HGB CONC 32.6 g/dl (32.0-37.0); MEAN CORPUSCULAR VOLUME 90.4 fl (82.0-101.0); MEAN PLATELET VOLUME 9.9 fl (7.4-10.4); MONOCYTE # 0.6 10^3/ul (0.3-0.9); MONOCYTES % 7.5 % (0.0-11.0); NEUTROPHIL # 5.4 10^3/ul (1.6-7.5); PLATELET COUNT 225 10^3/UL (140-415); RED BLOOD COUNT 3.97 10^6/ul (4.20-5.40); RED CELL DISTRIBUTION WIDTH 14.7 % (11.5-14.5)
[2016-10-03 10:04] LABS: POTASSIUM 3.7 mmol/L (3.5-5.1)
[2016-10-03 10:07] LABS: CALCIUM 8.8 mg/dl (8.4-10.2); CREATININE 0.95 mg/dl (0.44-1.00); MAGNESIUM 1.8 mg/dl (1.7-2.5)
[2016-10-03 10:10] LABS: IRON 49 ug/dl (35-150)
[2016-10-03 10:19] LABS: TOTAL IRON BINDING CAPACITY 315 ug/dl (241-421)
--- NOTE | 2016-10-03 10:46 | RADRPT ---
Echocardiogram Report Patient Name: ANA STRANGE Gender: Female Date: 1945 Study Date: 02-Oct-2016 Groundman/Lineman: Mariam [facility] Location: [facility] Ref. Physician: WILMER FORTUNE Quality: Adequate Procedures: Transthoracic echocardiogram with complete 2D, M-Mode, and doppler examination. Indications: Atrial Fibrillation RVR. 2D/M Mode Doppler Measurement Value Normal Ranges Measurement Value Normal Ranges LVIDd 2D 4.2 3.5 - 5.6 cm AV Peak Sunil 1.7 m/sec LVIDs 2D 2.4 2.1 - 4.1 cm AV Peak PG 10.9 mmHg LVPWd 2D 1.0 0.6 - 1.1 cm LVOT Peak Sunil 1.2 m/sec IVSd 2D 1.0 0.6 - 1.1 cm LVOT Peak PG 5.5 mmHg AoR Diam 2D 1.8 2.0 - 3.7 cm MV E Peak Sunil 0.8 m/sec EDV 2D 78.4 cm3 MV A Peak Sunil 1.1 m/sec ESV 2D 14.4 cm3 MV E/A 0.7 LA Dimen 2D 3.8 2.3 - 4.0 cm MV Decel Time 193 msec MV Decel [place] 4 MV E/A 0.7 Findings Left Ventricle: Normal left ventricular systolic function. Normal left ventricular cavity size. Normal left ventricular wall thickness. Ejection fraction is visually estimated at 65 - 70 %. Tissue Doppler/Mitral Doppler indices are consistent with impaired relaxation (Stage I diastolic dysfunction). Right Ventricle: Normal right ventricular size. Normal right ventricular systolic function. Left Atrium: The left atrium is normal in size. Right Atrium: The right atrium is normal in size. Mitral Valve: Mitral valve leaflets appear mildly thickened. Trace mitral regurgitation. Aortic Valve: Normal appearance of the aortic valve. No significant aortic stenosis or insufficiency. Tricuspid Valve: Normal appearance and function of the tricuspid valve with trace physiologic regurgitation. Pulmonic Valve: Pulmonic valve not well visualized. No evidence of pulmonic regurgitation. Pericardium: Normal pericardium with no significant pericardial effusion. Aorta: Normal aortic root. IVC: Normal size and normal respiratory collapse consistent with normal right atrial pressure. Conclusions 1.Normal left ventricular systolic function. Normal left ventricular cavity size. Normal left ventricular wall thickness. Ejection fraction is visually estimated at 65 - 70 %. Tissue Doppler/Mitral Doppler indices are consistent with impaired relaxation (Stage I diastolic dysfunction). 2.The left atrium is normal in size. 3.Mitral valve leaflets appear mildly thickened. Trace mitral regurgitation. 4.Normal appearance of the aortic valve. No significant aortic stenosis or insufficiency. 5.Normal appearance and function of the tricuspid valve with trace physiologic regurgitation. Electronically Signed By: Aguilar Mercado 03-Oct-2016 10:45:19 -0700 Patient Name: ANA STRANGE Study Date: 02-Oct-2016 [id number]
--- NOTE | 2016-10-03 14:50 | CONS ---
DATE OF ADMISSION: 10/02/2016 DATE OF CONSULTATION: 10/03/2016 TYPE OF CONSULTATION: Cardiology. REFERRING PHYSICIAN: Dr. Panda. REASON FOR EVALUATION: Dizziness, chest pain. HISTORY OF PRESENT ILLNESS: Ms. Ye is a 71-year-old woman with history of hypertension, dyslip idemia, history of coronary artery disease, prior history of testing in my office which was normal, who comes to the hospital now for evaluation of episodes of dizziness and near syncope. It appears that the patient was at home, she felt like she might be hypoglycemic. She tried ____ and then had an acute episode of passing out. The patient does have a history of atrial fibrillation which is pa roxysmal. On presentation to the hospital, the patient in was atrial fibrillation at a rate of 122, but she is much better rate controlled now. Currently, ____will hold off on any anticoagulation th erapy given, acute fall. For now, will continue to monitor and adjust therapy as needed. The patie nt had ischemic risk stratification and office. Will await for MRI of the head and add additional t herapy as necessary. PAST MEDICAL HISTORY: Hypertension, dyslipidemia, history of paroxysmal atrial fibrillation, histor y of dizziness in the past, history of hypertension. ALLERGIES: NO KNOWN DRUG ALLERGIES. SOCIAL HISTORY: Does not smoke, does not use any drugs. FAMILY HISTORY: Negative for sudden cardiac or premature coronary artery disease. MEDICATIONS: Here include: 1. Aspirin 81 mg daily. 2. Atenolol 25 mg ____ 3. Zetia 10 mg p.o. daily. 4. Fish oil. 5. Fluoxetine. 6. Lorazepam. 7. Metformin 500 b.i.d. 8. Topamax 25 mg b.i.d. 9. Valsartan 80 mg 10. Lovenox. 11. Glucose supplements. 12. Meclizine as needed. REVIEW OF SYSTEMS: CONSTITUTIONAL: No fevers, no chills, dizziness. HEENT: No changes in vision or hearing. CARDIAC: No chest pain reported now. GASTROINTESTINAL: No nausea, vomiting, diarrhea, constipation. GENITOURINARY: No dysuria, hematuria. NEUROLOGIC: No focal neurologic deficits. HEMATOLOGIC: ____. PSYCHIATRIC: History of mild anxiety. PHYSICAL EXAMINATION: VITAL SIGNS: Currently temperature is 97.8, heart rate 64 in sinus rhythm, blood pressure is 106/60 . GENERAL: She is a well-nourished woman in no acute distress, alert and oriented x3, aware of her co ndition. HEAD: Normocephalic, atraumatic. Eyes anicteric. NECK: Supple. JVD 7 to 8 cm. There is no lymphadenopathy, no thyromegaly. HEART: Regular with soft holosystolic murmur at the apex. PMI is minimally displaced. There is no S3. LUNGS: Coarse at bases. ABDOMEN: Distended, bowel sounds are present. There is no hepatosplenomegaly HEENT: Grossly intact . EXTREMITIES: Show no clubbing, cyanosis, edema. SKIN: Does not show any discoloration. NEUROLOGICAL: She is able to move her extremities. LABORATORY DATA: White blood cell count 8.0, hemoglobin 11.7, platelets 225. INR is 1.0. Sodium 1 40, potassium 3.6, BUN is 23, creatinine 0.9. ECG on presentation showed that the patient was in at rial fibrillation at a rate of 120 and she is in sinus now. ASSESSMENT AND PLAN: Dizziness. Episode of dizziness is unclear, possibly due to dehydration, as t he patient has been recently on a diet and had some diarrhea. The patient appears to be much better now, not dizzy, not orthostatic, conservative therapy is expected. Paroxysmal atrial fibrillation. The patient has recent fall. For now, we will not initiate anticoa gulation therapy. We will increase her aspirin to 325 and follow expectantly. Still awaiting an MR I. Dizziness. The patient will be evaluated by the neurologist for ____ Hypertension. Blood pressure well controlled. Continue medical optimization and care. Diabetes. Continue diabetic optimization and care. I would like to thank Farzad for referring this patient for my evaluation. Dictated By: PEDRITO ALBA MD ML/NTS Conf#: [id number] DID#: [id number]
--- NOTE | 2016-10-03 15:35 | RADRPT ---
PROCEDURE: MRI Brain without contrast. CLINICAL INDICATION: Dizziness TECHNIQUE: Multiplanar MRI of the brain without contrast was performed on a 3.0 T scanner with the following sequences obtained: T1-weighted, T2-weighted/FLAIR, diffusion weighted (with ADC map), GR E. COMPARISON: CT brain 10/02/2016 FINDINGS: No acute/recent ischemic infarction or intracranial hemorrhage / blood degradation products are iden tified. No extra-axial fluid collection is seen. There is no mass effect. No midline shift is identified. The ventricles and sulci are mildly enlarged, compatible with generalized volume loss. Minimal areas of increased T2 / FLAIR signal intensity are present in the periventricular and deep w hermann matter, nonspecific but likely related to chronic small vessel ischemic changes. Flow voids are identified in the proximal intracranial arteries and dural sinuses suggesting patency . The mastoid air cells and paranasal sinuses are grossly clear. IMPRESSION: 1. No evidence of acute intracranial pathology. 2. Mild generalized volume loss, with minimal chronic small vessel ischemic changes. RPTAT: VV .Ricky Wiseman MD, Date Time Electronically viewed and signed by .Ricky Wiseman MD, on 10/03/2016 15:35 .O/
--- NOTE | 2016-10-03 17:04 | PDOCDIS ---
Discharge Instructions CONDITION Patient Condition: Good HOME CARE INSTRUCTIONS: Special Diet: Cardiac ACTIVITY: Activity Restrictions: Slowly Increase Activity Rest between Activity Avoid heavy lifting FOLLOW UP/APPOINTMENTS Appointments Follow-up with primary care physician as outpatient LONNY MATOS MD October 03, 2016 17:04
--- NOTE | 2016-10-03 18:16 | DS ---
DATE OF ADMISSION: 10/02/2016 DATE OF DISCHARGE: 10/03/2016 CONSULTANTS: 1. Dr. Karri Temple. 2. Dr. Chintan Urbano. PROCEDURE: A 2-D echocardiogram which demonstrated normal left ventricle systolic function, normal left ventricle cavity size, normal left ventricle wall thickness, ejection fraction visually estimat ed at 65 to 70%. Stage I diastolic dysfunction. The left atrium is normal in size. Mitral valve l eaflet appears mildly thickened, trace mitral regurgitation, normal appearance of aortic valve, no s ignificant aortic stenosis. IMAGING: MRI of the brain, no acute intracranial abnormality. DISCHARGE DIAGNOSES: 1. Acute onset of dizziness. CT of the head and MRI of the brain does not show any acute finding, no sign of ischemia or hemorrhage. 2. Atrial fibrillation ____, rate controlled. Cardiology was consulted. Rate controlled. 3. Essential hypertension, well controlled. 4. Chronic glaucoma. Continue home medication. 5. Dyslipidemia. Continue statin. 6. Depression. Continue home medication. 7. Hypothyroidism. Continue levothyroxine. 8. Chronic constipation. Continue home medication. 9. Diabetes medication type 2. Continue metformin. 10. Anxiety. Continue Ativan. MEDICATIONS: The patient will continue her home medications. 1. Allopurinol 300 mg. 2. Aspirin 81 mg 3. Atenolol 25 mg. 4. Lumigan. 5. Celebrex 200 mg. 6. Vitamin D 2000 units. 7. Doxazosin 4 mg. 8. ____ 9. Zetia 10 mg 10. Uloric 80 mg. 11. [place] 3 fish oil 2000 mg 12. Prozac 10 mg. 13. [place] 5/325. 14. Levothyroxine 50 mcg 15. Linzess 145 mcg 16. Manoj MEHTA 17. Lorazepam 1 mg 18. Metformin 500 mg. 19. Depade 50 mg. 20. Topiramate 25 mg 21. Diovan 80 mg. ALLERGIES: NO KNOWN DRUG ALLERGIES. HOSPITAL COURSE: This is a 71-year-old female with past medical history of depression, anxiety, art hritis, gout, hypertension, dyslipidemia, diabetes mellitus, hypothyroidism, chronic glaucoma, atria l fibrillation who presented to [facility] secondary to having dizziness and vomit ing. Patient had 8 hour history of dizziness upon awakening with focal weakness, headache and numbn ess; however, with associated nausea, vomiting without any chills or fever. The patient had a histo ry of atrial fibrillation in the emergency room which was found to be rapid heart rate which resolve d spontaneously on medication. CT of the brain was obtained which did not show any acute intracrani al abnormality, no evidence of acute intrahepatic pathology, mild generalized volume loss with minim al chronic small vessel ischemic changes. Carotid Doppler showed mild calcified plaque within the c arotid bulb bilaterally, no evidence of any significant stenosis. MRI of the brain was obtained whi ch showed no evidence of acute intracranial pathology. The patient's 2D echocardiogram was obtained . Cardiology was consulted. Ejection fraction was shown to be 50% to 55%. The patient was also se en by neurology. After MRI of the brain, the patient stated that she was feeling well. The dizzine ss and lightheadedness has improved significantly and she has been requesting to be discharged home. She stated that she if is not discharged, she was signed out AMA. At this time, after evaluation of the imaging as medical standpoint, the patient is medically stable to be discharged. She needs t o continue her home medications, follow up with her primary care physician and neurology as outpatie nt. In case the dizziness and lightheadedness returns, the patient needs to follow up with PCP for referral to ENT. 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 CONDITION AT TIME OF DISCHARGE: Stable. LABORATORY DATA: WBC 8.0, hemoglobin 11.7, hematocrit 35.9, platelets 225. Sodium 140, potassium 3 .7, chloride 109, bicarbonate 25, BUN 23, creatinine 0.95, glucose 141, hemoglobin 6.1, calcium 8.8, magnesium 1.8, total iron 49, TIBC 350, iron saturation 16. Troponin negative x3. PHYSICAL EXAMINATION: VITAL SIGNS: Temperature 97.9, pulse 78, respirations 16, blood pressure 117/59, oxygen 97% in room air. CONDITION AT TIME OF DISCHARGE: Stable. Dictated By: LONNY MARCANO/NTS Conf#: [id number] DID#: [id number]
[2016-10-04] MEDS ORDERED: ASPIRIN 325 MG TAB PO SCH (09:00)
== END 2016-10-03 18:10 | disposition home or self-care (01) ==
LOC: E/R 08:39 → TEL 10:37
PROVIDERS: ADMIT Family Medicine; ATTEND Family Medicine
DX: R42 Dizziness and giddiness (principal); I48.0 Paroxysmal atrial fibrillation; E11.9 Type 2 diabetes mellitus without complications; Z79.84 Long term (current) use of oral hypoglycemic drugs; E78.5 Hyperlipidemia, unspecified; I10 Essential (primary) hypertension; F32.9 Major depressive disorder, single episode, unspecified; Z79.82 Long term (current) use of aspirin; E03.9 Hypothyroidism, unspecified; H40.9 Unspecified glaucoma; K59.00 Constipation, unspecified; F41.9 Anxiety disorder, unspecified
CPT/HCPCS: 36415; 70450; 70551; 71010; 80048; 80076; 82550; 82553; 82962; 83036; 83540; 83735; 84443; 84484; 85025; 85610; 85730; 93005; 93306; 93880; 96372; 96374; 96376; 99285; G0378; J1650; J1815; J2060; J2405; J7040

== ENCOUNTER 2017-04-04 00:01 | Inpatient (IN) | payer MEDICARE, OTHER ==
[~2017-04-04] VITALS: Ht 157.5 cm; Wt 87.5 kg
[~2017-04-04 00:01] MED LIST changes: +ALLO300T2 ORAL; +ATEN-51 ORAL; -CLON-379 PO; -CYCL-319 PO; -DOXA2TAB PO; +DOXA4TAB3 ORAL; +FLUO10CA17 ORAL; +LINA145C PO; +LIPA1CAP6 PO; +LORA1TAB ORAL; +METF500T4 ORAL; +TOPI-44 ORAL; -VALS160T20 PO; +VALS80TA2 PO
[2017-04-04] MEDS ORDERED: SOD CHLORIDE 0.9% 500 ML IV STA (03:31)
[2017-04-04] MEDS ORDERED: LIDOCAINE/MYLANTA 40 ML BTL PO STA (03:31)
[2017-04-04] MEDS ORDERED: FAMOTIDINE 20 MG INJ IV STA (03:31)
[2017-04-04] MEDS ORDERED: ONDANSETRON 4 MG INJ IV STA (03:31)
[2017-04-04] MEDS ORDERED: morphine 2 MG INJ IV STA (03:31)
--- NOTE | 2017-04-04 04:16 | RADRPT ---
PROCEDURE: CHEST - 1 VIEW CLINICAL INDICATION: 71-year-old female with chest/abdominal pain. TECHNIQUE: A single frontal AP portable view of the chest was performed. The images were reviewed on a PACS workstation. COMPARISON: None. FINDINGS: The cardiomediastinal silhouette within normal limits. The thoracic aortic arch is mildly calcified. There is no evidence for an infiltrate. There is no evidence for congestive heart failure. There is no evidence for pneumothorax. The osseous structures are intact. IMPRESSION: 1. No evidence for active cardiopulmonary disease. 2. Calcified thoracic aortic arch. .Deangelo Underwood MD, MD Date Time Electronically viewed and signed by .Deangelo Underwood MD, on 04/04/2017 04:16 .Leonel/
--- NOTE | 2017-04-04 04:32 | RADRPT ---
PROCEDURE: ULTRASOUND LIMITED ABDOMEN CLINICAL INDICATION: 71-year-old female with abdominal pain. TECHNIQUE: Multiple sonographic of the right upper quadrant of the abdomen were obtained. The imag es were reviewed on a PACS workstation. COMPARISON: None. FINDINGS: The pancreas is not well visualized secondary to overlying bowel gas. The liver displays diffuse increased echogenicity consistent with fatty infiltration. The liver esme ures 18.1 cm in length. No evidence of intrahepatic biliary ductal dilatation is seen. The portal a nd hepatic veins are unremarkable. The gallbladder is not visualized consistent with prior cholecystectomy. No pericholecystic fluid is seen. The common bile duct measures 4.6 mm and is not dilated. The right kidney displays normal echogenicity. The right kidney measures 10.7 cm in maximal length. No caliectasis or hydronephrosis is seen. No free fluid is seen. IMPRESSION: 1. Hepatic steatosis. 2. Status post cholecystectomy. .Deangelo Underwood MD, MD Date Time Electronically viewed and signed by .Deangelo Underwood MD, on 04/04/2017 04:32 .Leonel/
[2017-04-04 04:39] LABS: BASOPHIL # 0.1 10^3/ul (0.0-0.1); BASOPHILS % 0.9 % (0.0-2.0); EOSINOPHILS % 0.3 % (0.0-7.0); HEMATOCRIT 38.4 % (37.0-47.0); HEMOGLOBIN 12.5 g/dl (12.0-16.0); LYMPHOCYTES # 1.4 10^3/ul (0.8-2.9); LYMPHOCYTES % 14.5 % (15.0-51.0); MEAN CORPUSCULAR HEMOGLOBIN 29.6 pg (29.0-33.0); MEAN CORPUSCULAR HGB CONC 32.6 g/dl (32.0-37.0); MEAN PLATELET VOLUME 9.6 fl (7.4-10.4); MONOCYTE # 0.5 10^3/ul (0.3-0.9); MONOCYTES % 5.3 % (0.0-11.0); NEUTROPHIL # 7.6 10^3/ul (1.6-7.5); NEUTROPHILS % 78.6 % (39.0-77.0); PLATELET COUNT 258 10^3/UL (140-415); RED BLOOD COUNT 4.22 10^6/ul (4.20-5.40); RED CELL DISTRIBUTION WIDTH 13.5 % (11.5-14.5); WHITE BLOOD COUNT 9.7 10^3/ul (4.8-10.8)
[2017-04-04 04:45] LABS: ADD UMIC NO; UR ASCORBIC ACID NEGATIVE (NEGATIVE); UR BILIRUBIN (Dip) NEGATIVE (NEGATIVE); UR BLOOD (Dip) NEGATIVE (NEGATIVE); UR CLARITY CLEAR (CLEAR); UR COLOR YELLOW (YELLOW); UR GLUCOSE (Dip) NEGATIVE (NEGATIVE); UR KETONES (Dip) NEGATIVE (NEGATIVE); UR LEUKOCYTE ESTERASE (Dip) NEGATIVE Leu/ul (NEGATIVE); UR NITRITE (Dip) NEGATIVE (NEGATIVE); UR SPECIFIC GRAVITY (Dip) 1.019 (1.003-1.030); UR TOTAL PROTEIN (Dip) NEGATIVE (NEGATIVE); UR UROBILINOGEN (Dip) NEGATIVE (NEGATIVE)
[2017-04-04 05:07] LABS: ALANINE AMINOTRANSFERASE 50 IU/L (13-69); ALBUMIN 4.4 g/dl (3.3-4.9); ALBUMIN/GLOBULIN RATIO 1.46; ALKALINE PHOSPHATASE 59 IU/L (42-121); ANION GAP 19 (8-16); ASPARTATE AMINO TRANSFERASE 50 IU/L (15-46); BILIRUBIN,INDIRECT 0.6 mg/dl (0-1.1); BILIRUBIN,TOTAL 0.6 mg/dl (0.2-1.3); BLOOD UREA NITROGEN 24 mg/dl (7-20); CALCIUM 9.4 mg/dl (8.4-10.2); CARBON DIOXIDE 26 mmol/L (21-31); CHLORIDE 100 mmol/L (97-110); CREATININE 0.96 mg/dl (0.44-1.00); GLUCOSE 116 mg/dl (70-220); POTASSIUM 4.5 mmol/L (3.5-5.1); SODIUM 140 mmol/L (135-144); TOTAL PROTEIN 7.4 g/dl (6.1-8.1)
[2017-04-04 05:41] LABS: TROPONIN-I < 0.012 ng/ml (0.00-0.12)
--- NOTE | 2017-04-04 05:51 | ERD ---
ER Documentation Chief Complaint Chief Complaint PT having back pain and burping for 2 hours HPI 71-year-old female with epigastric abdominal pain that has been burping for 2 hours. The pain started 6 hours and has been getting progressively worse. Patient said is a burning-like sensation. No nausea no vomiting no chills. No radiations. No history of pain like this before. ROS All systems reviewed and are negative except as per history of present illness. Medications Home Meds Active Scripts Hydrocodone Bit-Acetaminophen* ([place]*) 5-325 Mg Tab, 1 TAB PO Q6 Y for PAIN, # 20 TAB Prov:DINH FRIED 01/10/15 Reported Medications Valsartan* (Diovan*) 80 Mg Tablet, 80 MG PO DAILY, TAB 10/02/16 Linaclotide (LINZESS) 145 Mcg Capsule, 145 MCG PO DAILY, #30 CAP 10/02/16 Jndswa-Vxowpeiq-Hvaogip* (Manoj MEHTA* 24,000) 24,000 L-76,000-120,000 Unit Capsule.dr, 1 CAP PO WITH MEALS, CAP 10/02/16 Fluoxetine Hcl* (Fluoxetine Hcl*) 10 Mg Capsule, 10 MG ORAL DAILY, #30 10/02/16 Topiramate* (Topiramate*) 25 Mg Tablet, 25 MG ORAL BID, #60 10/02/16 Atenolol* (Atenolol*) 25 Mg Tablet, 25 MG ORAL DAILY, #30 10/02/16 Doxazosin Mesylate* (Doxazosin Mesylate*) 4 Mg Tablet, 4 MG ORAL DAILY, #30 10/02/16 Metformin* (Glucophage*) 500 Mg Tab, 500 MG ORAL BID, #60 10/02/16 Lorazepam* (Lorazepam*) 1 Mg Tablet, 1 MG ORAL DAILY, #30 10/02/16 Allopurinol* (Allopurinol*) 300 Mg Tablet, 300 MG ORAL DAILY, #30 10/02/16 Bimatoprost* (Lumigan*) 0.01%-2.5 Ml Opht Drops, 1 DROP BOTH EYES HS, EA 01/10/15 Cholecalciferol* (Vitamin D3*) 2,000 Unit Cap, 2000 UNIT PO DAILY, CAP 01/10/15 Fish Oil/[place]-3 Fatty Acids ([place] 3 Fish Oil Softgel) 1 Cap.ec Capsule.dr, 2000 MG PO DAILY, CAP 01/10/15 Ezetimibe* (Zetia*) 10 Mg Tablet, 10 MG PO HS, TAB 01/10/15 Naltrexone Hcl (Depade) 50 Mg Tablet, 50 MG PO DAILY 01/10/15 Celecoxib* (Celebrex*) 200 Mg Capsule, 200 MG PO DAILY, CAP 01/10/15 Febuxostat* (Uloric*) 80 Mg Tablet, 80 MG PO DAILY, TAB 01/10/15 Aspirin (Low Dose Aspirin) 81 Mg Tablet.dr, 81 MG PO DAILY 01/10/15 Levothyroxine Sodium* (Synthroid*) 50 Mcg Tablet, 50 MCG PO AC BREAKFAST, TAB 01/10/15 Exenatide Microspheres (Bydureon) 2 Mg Vial, 2 MG SQ Q7D, VIAL 01/10/15 Allergies Allergies: Coded Allergies: No Known Allergy (Unverified , 01/10/15) PMhx/Soc Medical and Surgical Hx: pt denies Medical Hx History of Surgery: Yes (cholecystectomy) Anesthesia Reaction: No Hx Neurological Disorder: No Hx Respiratory Disorders: No Hx Cardiac Disorders: Yes (afib, HTN) Hx Psychiatric Problems: No Hx Miscellaneous Medical Probl: Yes (DM, arthritis, glaucoma) Hx Alcohol Use: No Hx Substance Use: No Hx Tobacco Use: No Smoking Status: Never smoker Physical Exam Vitals Vital Signs Date Time Temp Pulse Resp B/P Pulse Ox O2 Delivery O2 Flow Rate FiO2 04/04/17 04:30 98.6 81 16 129/60 97 Room Air 04/04/17 00:11 98.6 62 16 125/59 97 Physical Exam Const: [] Head: Atraumatic Eyes: Normal Conjunctiva ENT: Normal External Ears, Nose and Mouth. Neck: Full range of motion..~ No meningismus. Resp: Clear to auscultation bilaterally Cardio: Regular rate and rhythm, no murmurs Abd: Soft, non tender, non distended. Normal bowel sounds Skin: No petechiae or rashes Back: No midline or flank tenderness Ext: No cyanosis, or edema Neur: Awake and alert Psych: Normal Mood and Affect Result Diagram: 04/04/17 0415 04/04/17 0415 Results 24 hrs Laboratory Tests Test 04/04/17 04:15 White Blood Count 9.710^3/ul Red Blood Count 4.2210^6/ul Hemoglobin 12.5g/dl Hematocrit 38.4% Mean Corpuscular Volume 91.0fl Mean Corpuscular Hemoglobin 29.6pg Mean Corpuscular Hemoglobin Concent 32.6g/dl Red Cell Distribution Width 13.5% Platelet Count 69863^3/UL Mean Platelet Volume 9.6fl Neutrophils % 78.6% Lymphocytes % 14.5% Monocytes % 5.3% Eosinophils % 0.3% Basophils % 0.9% Nucleated Red Blood Cells % 0.0/100WBC Neutrophils # 7.610^3/ul Lymphocytes # 1.410^3/ul Monocytes # 0.510^3/ul Eosinophils # 0.010^3/ul Basophils # 0.110^3/ul Nucleated Red Blood Cells # 0.010^3/ul Urine Color YELLOW Urine Clarity CLEAR Urine pH 5.0 Urine Specific [place] 1.019 Urine Ketones NEGATIVEmg/dL Urine Nitrite NEGATIVEmg/dL Urine Bilirubin NEGATIVEmg/dL Urine Urobilinogen NEGATIVEmg/dL Urine Leukocyte Esterase NEGATIVELeu/ul Urine Hemoglobin NEGATIVEmg/dL Urine Glucose NEGATIVEmg/dL Urine Total Protein NEGATIVEmg/dl Sodium Level 140mmol/L Potassium Level 4.5mmol/L Chloride Level 100mmol/L Carbon Dioxide Level 26mmol/L Anion Gap 19 Blood Urea Nitrogen 24mg/dl Creatinine 0.96mg/dl Glucose Level 116mg/dl Calcium Level 9.4mg/dl Total Bilirubin 0.6mg/dl Direct Bilirubin 0.00mg/dl Indirect Bilirubin 0.6mg/dl Aspartate Amino Transf (AST/SGOT) 50IU/L Alanine Aminotransferase (ALT/SGPT) 50IU/L Alkaline Phosphatase 59IU/L Troponin I < 0.012ng/ml Total Protein 7.4g/dl Albumin 4.4g/dl Globulin 3.00g/dl Albumin/Globulin Ratio 1.46 Lipase 2132U/L Current Medications Medications (Trade) Dose Ordered Sig/Mi Route PRN Reason Start Time Stop Time Status Last Admin Dose Admin Sodium Chloride (NS) 500 ml @ 500 mls/hr Q1H STAT IV 04/04/17 03:31 04/04/17 04:30 DC 04/04/17 03:31 Morphine Sulfate (morphine) 2 mg ONCE STAT IV 04/04/17 03:31 04/04/17 03:32 DC 04/04/17 04:28 Ondansetron HCl (Zofran Inj) 4 mg ONCE STAT IV 04/04/17 03:31 04/04/17 03:32 DC 04/04/17 04:29 Famotidine (Pepcid Iv) 20 mg ONCE STAT IV 04/04/17 03:31 04/04/17 03:33 DC 04/04/17 04:29 Miscellaneous Medication (Gi Cocktail (2)) 40 ml ONCE STAT PO 04/04/17 03:31 04/04/17 03:33 DC 04/04/17 04:29 Procedures/MDM EKG: Rate/Rhythm: [Normal Sinus Rhythm] QRS, ST, T-waves: [No changes consistent w/ acute ischemia] Impression: [No evidence of ischemia or arrhythmia] Chest X-ray 1V Interpreted by me: Soft Tissue: No acute abnormalities Bones: No acute abnormalities Mediastinum/Cardiac Silhouette/Lungs: [No acute abnormalities] Clinical decision-makin-year-old female who has acute pancreatitis. At this point patient will need to be admitted. She will be admitted for observation, fluid hydration, pain control. Currently pain-free Departure Diagnosis: Primary Impression: Pancreatitis Chronicity: acute Pancreatitis type: unspecified pancreatitis type Acute pancreatitis complication: unspecified Qualified Code: K85.90 - Acute pancreatitis, unspecified complication status, unspecified pancreatitis type Additional Impression: Abdominal pain Abdominal location: epigastric Qualified Code: R10.13 - Epigastric pain Condition: Serious NEFTALY SEO Apr 04, 2017 05:51
--- NOTE | 2017-04-04 05:56 | RADRPT ---
PROCEDURE: CT abdomen and pelvis without contrast CLINICAL INDICATION: Abdominal pain. COMPARISON: Abdominal ultrasound 04/04/2017. TECHNIQUE: Axial images of the abdomen and pelvis with sagittal and coronal reconstructions. DOSE ESTIMATE: CTDI vol = 20.87 mGy. DLP = 1251.99 mGy-cm. One or more of the following dose reduc tion techniques were used: automated exposure control, adjustment of the mA and/or kV according to p atient size, or use of iterative reconstruction. DICOM images are available. FINDINGS: Lung bases: The lung bases are clear. There are healed fractures of the left lateral fourth through seventh ribs. No evidence of cardiomegaly or pericardial effusion. Diffuse coronary atherosclerotic calcifications are present within the left main and anterior descending arteries. Limitations: The absence of intravenous contrast limits evaluation of solid organ parenchyma. Hepatobiliary: The liver capsule is smooth. No suspicious liver lesion. No intrahepatic biliary [place] t dilation. Gallbladder: The gallbladder surgically absent. The common bile duct is not enlarged. Pancreas: No mass, calcification, or pancreatic duct dilation. Spleen: Normal. Adrenals: Normal. Urinary tract: No suspicious kidney lesion. No nephrolithiasis or hydronephrosis. The bladder is no ndistended. Pelvic organs: A 9 mm rounded calcification is present within the anterior inferior uterine fundus f avored to represent a degenerating fibroadenoma. Bowel: The stomach is partially collapsed. Small bowel loops are non dilated. The appendix is normal -appearing. Retained fecal matter is present within the colon. No pericolonic inflammatory changes a re demonstrated. There is a periumbilical hernia containing mesenteric fat only. Peritoneum: No free fluid, adenopathy, or free air. Vessels: Atherosclerotic calcifications of the abdominal aorta and bilateral common iliac arteries a re present. Bones: No suspicious bone lesion. Degenerative grade 1 spondylolisthesis of L4 relative to L5 with d egenerated disc disease. Vacuum discs T11-T12 T8-T9, T10-T11 and T11-T12. Soft tissues: Normal. Additional comment: None. IMPRESSION: 1. No acute intra-abdominal or intrapelvic pathology. 2. 9 mm rounded calcification within the anterior inferior and fundus favored to represent a degene rating fibroadenoma. 3. Diffuse coronary atherosclerosis of the left main and left anterior descending arteries. 4. Healed fracture of the left lateral fourth through seventh ribs. 5. Degenerative grade 1 spondylolisthesis of L4 relative to L5. And report Physician David Date Time Electronically viewed and signed by Wilver Harrison Physician on 04/04/2017 05:56 RR/
[2017-04-04] MEDS ORDERED: ACETAMINOPHEN 325 MG TAB PO PRN (08:30)
[2017-04-04] MEDS ORDERED: ONDANSETRON 4 MG INJ IV PRN ×2 (08:30→11:30)
[2017-04-04 09:02] VITALS: TEMP 98.5
[2017-04-04 10:00] VITALS: BP 138/63; PULSE 65; RESP 19
[2017-04-04] MEDS ORDERED: SPIR100T31 PO (10:14)
[2017-04-04 10:25] VITALS: Ht 157.5 cm; Wt 87.5 kg
--- NOTE | 2017-04-04 11:10 | HP ---
Date/Time of Note Date/Time of Note DATE: 04/04/17 TIME: 11:04 Assessment/Plan VTE Prophylaxis VTE Prophylaxis Intervention: LMWH Assessment/Plan Assessment/Plan 1. Acute Pancreatitis Pt is s/p cholecystectomy and doesn't drink alcohol. We will r/o hypertriglyceridemia and also get CA 19-9 2. Morbid obesity 3. DM 2: suboptimal control PLAN: NPO / IVF / SSI / PPI or pepcid / pain control chief counsel when improved on weight loss. trend amylase and lipase levels supportive care. HPI/ROS Admit Date/Time Admit Date/Time Apr 04, 2017 at 08:11 Hx of Present Illness PRESENTING COMPLAINT: abd pain, nausea x 5 days. HISTORY OF PRESENTING COMPLAINT: 72 yo F with a 5 day hx of abd pain that has been slowly worsening in frequency and severity. Denies alcohol or ilicit drug use. Has had gallstone pancreatitis in the past and is s/p cholecystectomy. found to have another episode of pancreatitis. ROS 12 point review if systems was done and pertinent findings are as noted. Constitutional: nausea, poor po, No chills, No febrile Eyes: no complaints ENT: no complaints Respiratory: no complaints Cardiovascular: no complaints Gastrointestinal: decreased appetite, nausea, No vomiting Musculoskeletal: no complaints Neurologic: no complaints PMH/Family/Social Past Medical History * htn * irregular heartbeat * hx of bladder ca * dm2 * arthritis * glaucoma Past Surgical History Past Surgical Hx: cholecystectomy Social History Alcohol Use: none Smoking Status: Never smoker Drug Use: none Exam/Review of Systems Vital Signs Vitals VS - Last 72 Hours, by Label Date Time Temp Pulse Resp B/P Pulse Ox O2 Delivery O2 Flow Rate FiO2 04/04/17 10:00 98.0 65 19 138/63 97 Room Air 04/04/17 09:02 98.5 65 16 124/57 97 Room Air 04/04/17 04:30 98.6 81 16 129/60 97 Room Air 04/04/17 00:11 98.6 62 16 125/59 97 Vital Signs Date Time Temp Pulse Resp B/P Pulse Ox O2 Delivery O2 Flow Rate FiO2 04/04/17 09:02 98.5 65 16 124/57 97 Room Air Exam Constitutional: alert, distress (anxious), other (morbidly obese) Head: normocephalic Eyes: PERRL, No icteric ENMT: mucosa pink and moist Neck: supple Respiratory: clear to auscultation, diminished breath sounds, No crackles/rales, No labored breathing Cardiovascular: nl pulses, regular rate and rhythm, No murmurs/extra sounds Gastrointestinal: bowel sounds, non-tender, soft, surgical scars (RUQ, well healed) Extremities: No edema Neurological: nl mental status, No focal weakness Labs Result Diagram: 04/04/17 0415 04/04/17 0415 Procedures Procedures Laboratory Tests Test 04/04/17 04:15 04/04/17 08:59 04/04/17 10:45 White Blood Count 9.710^3/ul Red Blood Count 4.2210^6/ul Hemoglobin 12.5g/dl Hematocrit 38.4% Mean Corpuscular Volume 91.0fl Mean Corpuscular Hemoglobin 29.6pg Mean Corpuscular Hemoglobin Concent 32.6g/dl Red Cell Distribution Width 13.5% Platelet Count 86185^3/UL Mean Platelet Volume 9.6fl Neutrophils % 78.6% Lymphocytes % 14.5% Monocytes % 5.3% Eosinophils % 0.3% Basophils % 0.9% Nucleated Red Blood Cells % 0.0/100WBC Neutrophils # 7.610^3/ul Lymphocytes # 1.410^3/ul Monocytes # 0.510^3/ul Eosinophils # 0.010^3/ul Basophils # 0.110^3/ul Nucleated Red Blood Cells # 0.010^3/ul Urine Color YELLOW Urine Clarity CLEAR Urine pH 5.0 Urine Specific [place] 1.019 Urine Ketones NEGATIVEmg/dL Urine Nitrite NEGATIVEmg/dL Urine Bilirubin NEGATIVEmg/dL Urine Urobilinogen NEGATIVEmg/dL Urine Leukocyte Esterase NEGATIVELeu/ul Urine Hemoglobin NEGATIVEmg/dL Urine Glucose NEGATIVEmg/dL Urine Total Protein NEGATIVEmg/dl Sodium Level 140mmol/L Potassium Level 4.5mmol/L Chloride Level 100mmol/L Carbon Dioxide Level 26mmol/L Anion Gap 19 Blood Urea Nitrogen 24mg/dl Creatinine 0.96mg/dl Glucose Level 116mg/dl Calcium Level 9.4mg/dl Total Bilirubin 0.6mg/dl Direct Bilirubin 0.00mg/dl Indirect Bilirubin 0.6mg/dl Aspartate Amino Transf (AST/SGOT) 50IU/L Alanine Aminotransferase (ALT/SGPT) 50IU/L Alkaline Phosphatase 59IU/L Troponin I < 0.012ng/ml Total Protein 7.4g/dl Albumin 4.4g/dl Globulin 3.00g/dl Albumin/Globulin Ratio 1.46 Lipase 2132U/L Bedside Glucose 95mg/dL 105mg/dL Current Medications Medications (Trade) Dose Ordered Sig/Mi Route PRN Reason Start Time Stop Time Status Last Admin Dose Admin Sodium Chloride (NS) 500 ml @ 500 mls/hr Q1H STAT IV 04/04/17 03:31 04/04/17 04:30 DC 04/04/17 03:31 500 MLS/HR Morphine Sulfate (morphine) 2 mg ONCE STAT IV 04/04/17 03:31 04/04/17 03:32 DC 04/04/17 04:28 2 MG Ondansetron HCl (Zofran Inj) 4 mg ONCE STAT IV 04/04/17 03:31 04/04/17 03:32 DC 04/04/17 04:29 4 MG Famotidine (Pepcid Iv) 20 mg ONCE STAT IV 04/04/17 03:31 04/04/17 03:33 DC 04/04/17 04:29 20 MG Miscellaneous Medication (Gi Cocktail (2)) 40 ml ONCE STAT PO 04/04/17 03:31 04/04/17 03:33 DC 04/04/17 04:29 40 ML Ondansetron HCl (Zofran Inj) 4 mg BRIDGE ORDER PRN IV NAUSEA AND/OR VOMITING 04/04/17 08:30 04/05/17 08:29 Acetaminophen (Tylenol Tab) 650 mg ER BRIDGE PRN PO MILD PAIN/FEVER 04/04/17 08:30 04/05/17 08:29 PROCEDURE: ULTRASOUND LIMITED ABDOMEN CLINICAL INDICATION: 71-year-old female with abdominal pain. TECHNIQUE: Multiple sonographic of the right upper quadrant of the abdomen were obtained. The images were reviewed on a PACS workstation. COMPARISON: None. FINDINGS: The pancreas is not well visualized secondary to overlying bowel gas. The liver displays diffuse increased echogenicity consistent with fatty infiltration. The liver measures 18.1 cm in length. No evidence of intrahepatic biliary ductal dilatation is seen. The portal and hepatic veins are unremarkable. The gallbladder is not visualized consistent with prior cholecystectomy. No pericholecystic fluid is seen. The common bile duct measures 4.6 mm and is not dilated. The right kidney displays normal echogenicity. The right kidney measures 10.7 cm in maximal length. No caliectasis or hydronephrosis is seen. No free fluid is seen. IMPRESSION: 1. Hepatic steatosis. 2. Status post cholecystectomy. .Deangelo Underwood MD, MD Date Time Electronically viewed and signed by .Deangelo Underwood MD, MD on 04/04/2017 04:32 .M/ CC: NEFTALY SEO CLINICAL INDICATION: Abdominal pain. COMPARISON: Abdominal ultrasound 04/04/2017. TECHNIQUE: Axial images of the abdomen and pelvis with sagittal and coronal reconstructions. DOSE ESTIMATE: CTDI vol = 20.87 mGy. DLP = 1251.99 mGy-cm. One or more of the following dose reduction techniques were used: automated exposure control, adjustment of the mA and/or kV according to patient size, or use of iterative reconstruction. DICOM images are available. FINDINGS: Lung bases: The lung bases are clear. There are healed fractures of the left lateral fourth through seventh ribs. No evidence of cardiomegaly or pericardial effusion. Diffuse coronary atherosclerotic calcifications are present within the left main and anterior descending arteries. Limitations: The absence of intravenous contrast limits evaluation of solid organ parenchyma. Hepatobiliary: The liver capsule is smooth. No suspicious liver lesion. No intrahepatic biliary duct dilation. Gallbladder: The gallbladder surgically absent. The common bile duct is not enlarged. Pancreas: No mass, calcification, or pancreatic duct dilation. Spleen: Normal. Adrenals: Normal. Urinary tract: No suspicious kidney lesion. No nephrolithiasis or hydronephrosis. The bladder is nondistended. Pelvic organs: A 9 mm rounded calcification is present within the anterior inferior uterine fundus favored to represent a degenerating fibroadenoma. Bowel: The stomach is partially collapsed. Small bowel loops are non dilated. The appendix is normal-appearing. Retained fecal matter is present within the colon. No pericolonic inflammatory changes are demonstrated. There is a periumbilical hernia containing mesenteric fat only. Peritoneum: No free fluid, adenopathy, or free air. Vessels: Atherosclerotic calcifications of the abdominal aorta and bilateral common iliac arteries are present. Bones: No suspicious bone lesion. Degenerative grade 1 spondylolisthesis of L4 relative to L5 with degenerated disc disease. Vacuum discs T11-T12 T8-T9, T10- T11 and T11-T12. Soft tissues: Normal. Additional comment: None. IMPRESSION: 1. No acute intra-abdominal or intrapelvic pathology. 2. 9 mm rounded calcification within the anterior inferior and fundus favored to represent a degenerating fibroadenoma. 3. Diffuse coronary atherosclerosis of the left main and left anterior descending arteries. 4. Healed fracture of the left lateral fourth through seventh ribs. 5. Degenerative grade 1 spondylolisthesis of L4 relative to L5. And report Physician David Date Time Electronically viewed and signed by Physician David on 04/04/2017 05 :56 RR/ CC: NEFTALY SEO. TONGWILMER Guzmán Apr 04, 2017 11:10
[2017-04-04] MEDS ORDERED: LORAZEPAM 2 MG INJ IV PRN (11:30)
[2017-04-04] MEDS ORDERED: DEXTROSE 50% 50 ML SYRINGE IV PRN ×2 (11:30)
[2017-04-04] MEDS ORDERED: PANTOPRAZOLE 40 MG INJ IV ONE (11:30)
[2017-04-04] MEDS ORDERED: morphine 4 MG/ML VIAL IV PRN (11:30)
[2017-04-04] MEDS ORDERED: GLUCAGON 1 MG INJ IM PRN (11:30)
[2017-04-04] MEDS ORDERED: GLUCOSE GEL 15 GRAM TUBE PO PRN ×2 (11:30)
[2017-04-04] MEDS ORDERED: GLUCOSE GEL 15 GRAM TUBE BUCCAL PRN (11:30)
[2017-04-04] MEDS: SOD CHLORIDE 0.9% 1,000 ML IV SCH ×3 (11:44→20:27)
[2017-04-04] MEDS: INSULIN ASPART [NOVOLOG] 3 ML PEN SC SCH ×3 (13:00→21:00)
[2017-04-04 18:34] VITALS: BP 111/54; PULSE 56; RESP 20
[2017-04-04 19:59] VITALS: BP 147/65; RESP 20
[2017-04-04] MEDS: FAMOTIDINE 20 MG INJ IV SCH (21:42)
[2017-04-04 23:33] VITALS: BP 116/51; RESP 18
[2017-04-05] MEDS: INSULIN ASPART [NOVOLOG] 3 ML PEN SC SCH ×5 (01:00→17:00)
[2017-04-05] MEDS: SOD CHLORIDE 0.9% 1,000 ML IV SCH (03:36)
[2017-04-05 04:49] VITALS: BP 150/69; PULSE 59; RESP 16
[2017-04-05 05:32] LABS: BASOPHIL # 0.1 10^3/ul (0.0-0.1); BASOPHILS % 1.4 % (0.0-2.0); EOSINOPHILS # 0.1 10^3/ul (0.0-0.5); EOSINOPHILS % 2.2 % (0.0-7.0); HEMATOCRIT 33.7 % (37.0-47.0); LYMPHOCYTES # 1.9 10^3/ul (0.8-2.9); LYMPHOCYTES % 38.8 % (15.0-51.0); MEAN CORPUSCULAR HGB CONC 32.6 g/dl (32.0-37.0); MEAN CORPUSCULAR VOLUME 91.8 fl (82.0-101.0); MEAN PLATELET VOLUME 9.8 fl (7.4-10.4); MONOCYTE # 0.5 10^3/ul (0.3-0.9); MONOCYTES % 10.2 % (0.0-11.0); NEUTROPHIL # 2.3 10^3/ul (1.6-7.5); NEUTROPHILS % 47.2 % (39.0-77.0); PLATELET COUNT 225 10^3/UL (140-415); RED BLOOD COUNT 3.67 10^6/ul (4.20-5.40); RED CELL DISTRIBUTION WIDTH 13.7 % (11.5-14.5); WHITE BLOOD COUNT 4.9 10^3/ul (4.8-10.8)
[2017-04-05 05:53] LABS: INR 1.04; PROTIME 13.6 Sec (12.2-14.2); PT RATIO 1.1
[2017-04-05 05:54] LABS: PARTIAL THROMBOPLASTIN TIME 27.8 Sec (25.0-35.0)
[2017-04-05 06:13] LABS: ALBUMIN 3.1 g/dl (3.3-4.9); BILIRUBIN,INDIRECT 0.8 mg/dl (0-1.1); BILIRUBIN,TOTAL 0.8 mg/dl (0.2-1.3); CALCIUM 8.8 mg/dl (8.4-10.2); CHOL/HDL RATIO 3.9 RATIO; CREATININE 0.92 mg/dl (0.44-1.00); MAGNESIUM 1.9 mg/dl (1.7-2.5); POTASSIUM 3.9 mmol/L (3.5-5.1); TOTAL PROTEIN 5.9 g/dl (6.1-8.1)
[2017-04-05] MEDS ORDERED: ENOXAPARIN 40 MG/0.4 ML SYG SC ONE (07:56)
[2017-04-05 08:08] VITALS: BP 133/60; PULSE 55; RESP 16
[2017-04-05] MEDS ORDERED: ENOXAPARIN 40 MG/0.4 ML SYG SC SCH (09:00)
[2017-04-05] MEDS: FAMOTIDINE 20 MG INJ IV SCH (09:28)
--- NOTE | 2017-04-05 09:33 | PN ---
Date/Time of Note Date/Time of Note DATE: 04/05/17 TIME: 09:33 Assessment/Plan Lines/Catheters IV Catheter Type (from Nrs): Peripheral IV Urinary Cath still in place: No Assessment/Plan Assessment/Plan Hypothyroidism Gout Glaucoma Chronic depression Chronic pancreatitis Exam/Review of Systems Vital Signs Vitals Vital Signs Date Time Temp Pulse Resp B/P Pulse Ox O2 Delivery O2 Flow Rate FiO2 04/05/17 08:08 97.8 55 16 133/60 97 04/04/17 10:00 Room Air Intake and Output 04/04/17 04/04/17 04/05/17 15:00 23:00 07:00 Intake Total 100 ml 500 ml 625 ml Balance 100 ml 500 ml 625 ml Results Result Diagram: 04/05/17 0435 04/05/17 0438 Results 24 hrs Laboratory Tests Test 04/04/17 10:45 04/04/17 13:42 04/04/17 17:50 04/04/17 21:41 Bedside Glucose 105 88 92 79 Test 04/05/17 03:34 04/05/17 04:35 04/05/17 04:38 04/05/17 08:04 Bedside Glucose 73 87 White Blood Count 4.9 # Red Blood Count 3.67 L Hemoglobin 11.0 L Hematocrit 33.7 L Mean Corpuscular Volume 91.8 Mean Corpuscular Hemoglobin 30.0 Mean Corpuscular Hemoglobin Concent 32.6 Red Cell Distribution Width 13.7 Platelet Count 225 Mean Platelet Volume 9.8 Neutrophils % 47.2 Lymphocytes % 38.8 Monocytes % 10.2 Eosinophils % 2.2 Basophils % 1.4 Nucleated Red Blood Cells % 0.0 Neutrophils # 2.3 Lymphocytes # 1.9 Monocytes # 0.5 Eosinophils # 0.1 Basophils # 0.1 Nucleated Red Blood Cells # 0.0 Prothrombin Time 13.6 Prothrombin Time Ratio 1.1 INR International Normalized Ratio 1.04 Activated Partial Thromboplast Time 27.8 Sodium Level 144 Potassium Level 3.9 Chloride Level 109 Carbon Dioxide Level 28 Anion Gap 11 # Blood Urea Nitrogen 14 # Creatinine 0.92 Glucose Level 78 Hemoglobin A1c 5.6 Calcium Level 8.8 Magnesium Level 1.9 Total Bilirubin 0.8 Direct Bilirubin 0.00 Indirect Bilirubin 0.8 Aspartate Amino Transf (AST/SGOT) 20 Alanine Aminotransferase (ALT/SGPT) 45 Alkaline Phosphatase 42 Total Protein 5.9 #L Albumin 3.1 #L Triglycerides Level 154 H Cholesterol Level 110 LDL Cholesterol, Calculated 51 HDL Cholesterol 28 L Cholesterol/HDL Ratio 3.9 Medications Medications Current Medications Famotidine (Pepcid Iv) 20 mg BID IV Last administered on 04/04/17 21:42; Admin Dose 20 MG; Start 04/04/17 at 21:00 Ondansetron HCl 4 mg 4 mg Q6H PRN IV NAUSEA AND/OR VOMITING; Start 04/04/17 at 11:30 Sodium Chloride (NS) 1,000 ml @ 125 mls/hr Q8H IV Last administered on 03:36; Admin Dose 125 MLS/HR; Start 04/04/17 at 11:30 Morphine Sulfate (morphine) 3 mg Q4H PRN IV pain; Start 04/04/17 at 11:30 Lorazepam (Ativan) 0.5 mg Q6H PRN IV anxiety; Start 04/04/17 at 11:30 Insulin Aspart (Novolog Insulin Pen) NOVOLOG *MILD* ALGORI... Q4 SC ; Start at 13:00 Miscellaneous Information 1 ea NOTE XX ; Start 04/04/17 at 11:30 Glucose (Glutose) 15 gm Q15M PRN PO DECREASED GLUCOSE; Start 04/04/17 at 11:30 Glucose (Glutose) 22.5 gm Q15M PRN PO DECREASED GLUCOSE; Start 04/04/17 at 11: 30 Dextrose (D50w Syringe) 25 ml Q15M PRN IV DECREASED GLUCOSE; Start 04/04/17 at 11:30 Dextrose (D50w Syringe) 50 ml Q15M PRN IV DECREASED GLUCOSE; Start 04/04/17 at 11:30 Glucagon (Glucagen) 1 mg Q15M PRN IM DECREASED GLUCOSE; Start 04/04/17 at 11: 30 Glucose (Glutose) 15 gm Q15M PRN BUCCAL DECREASED GLUCOSE; Start 04/04/17 at 11:30 Enoxaparin Sodium (Lovenox) 40 mg DAILY SC ; Start 04/05/17 at 09:00 WILMER FORTUNE Apr 05, 2017 09:33
[2017-04-05] MEDS ORDERED: VALSARTAN 80 MG TAB PO SCH (10:00)
[2017-04-05] MEDS ORDERED: HYDROCODONE/APAP (5/325) TAB PO PRN (10:00)
[2017-04-05] MEDS ORDERED: ASPIRIN (EC) 81 MG TAB PO SCH (10:00)
[2017-04-05] MEDS ORDERED: FISH OIL 1,000 MG CAP PO SCH (10:00)
[2017-04-05] MEDS ORDERED: FLUOXETINE 10 MG CAP PO SCH (10:00)
[2017-04-05 10:44] LABS: AMYLASE 50 U/L (11-123)
[2017-04-05] MEDS ORDERED: LORA1TAB ORAL (11:26)
[2017-04-05] MEDS ORDERED: CELE200C PO (11:26)
--- NOTE | 2017-04-05 11:27 | PDOCDIS ---
Discharge Instructions DIAGNOSIS Discharge Diagnosis Acute on Chronic Pancreatitis CONDITION Patient Condition: Stable HOME CARE INSTRUCTIONS: Special Diet: Soft diet ACTIVITY: Activity Restrictions: Slowly Increase Activity Rest between Activity FOLLOW UP/APPOINTMENTS Follow-up Plan Followup with your primary doctor within the next 1-2 weeks. If you don't have one please let someone know, we can give you resources that may help you pick one. You may call Dr Denis Bains's office. he's accepting new patients Name, Degree: Denis Bains MD Specialty: Internal Medicine Comments: Office Address: [address] [place], [place] [id number] Office Office You may also call your insurance company to assign one to you. Review your medication list with your nurse before leaving and if you need new prescriptions please let your nurse know. I may have made changes to your home medications or given you new prescriptions, please let your primary doctor know as well. Stay compliant with your medications and report any side effects to your PCP or pharmacist. Return to the ER if you have any concerns and cannot reach your doctors or call your insurance company, they usually have a nurse that can help you. WILMER FORTUNE Apr 05, 2017 11:27
--- NOTE | 2017-04-05 11:34 | DS ---
Date/Time of Note Date/Time of Note DATE: 04/05/17 TIME: 11:31 Discharge Summary Admission/Discharge Info Admit Date/Time Apr 04, 2017 at 08:11 Discharge Date/Time April 05, 2017 . Discharge Diagnosis Acute on Chronic Pancreatitis Chronic hypertension: Good control Diabetes type type II Chronic dyslipidemia: Good control Chronic hypothyroidism: Good control Chronic glaucoma Chronic arthritis Patient Condition: Stable Consults None . Procedures Please see imaging reports. Patient had a CT scan of the abdomen, and abdominal ultrasound,As well as a chest x-ray . Hx of Present Illness PRESENTING COMPLAINT: abd pain, nausea x 5 days. HISTORY OF PRESENTING COMPLAINT: 72 yo F with a 5 day hx of abd pain that has been slowly worsening in frequency and severity. Denies alcohol or ilicit drug use. Has had gallstone pancreatitis in the past and is s/p cholecystectomy. found to have another episode of pancreatitis. Hospital Course Ms Ye is a 71-year-old female who had presented to emergency room with epigastric abdominal pain and burping that radiated to her back for few hours before presentation. From review of the home medication list it looks like patient has a history of a chronic pancreatitis. She has had her gallbladder taken out in the past. She was admitted for acute pancreatitis superimposed on chronic pancreatitis and that she was managed accordingly with IV fluids pain control and n.p.o. by date of admission she had improved significantly at this time she is going to be is being started on a diet and she is able to tolerate that she has requested to be discharged home afterwards. A few changes were made to her medications just switching from scheduled to as needed and she is recommended to follow-up with her primary care physician as soon as possible. This has been communicated to her and she has verbalized understanding. . Home Meds Active Scripts Hydrocodone Bit-Acetaminophen* ([place]*) 5-325 Mg Tab, 1 TAB PO Q6 Y for PAIN, # 20 TAB Prov:DINH FRIED 01/10/15 Reported Medications Spironolactone* (Spironolactone*) 100 Mg Tablet, 25 MG PO DAILY, TAB 04/04/17 Valsartan* (Diovan*) 80 Mg Tablet, 80 MG PO DAILY, TAB 10/02/16 Linaclotide (LINZESS) 145 Mcg Capsule, 145 MCG PO DAILY, #30 CAP 10/02/16 Fmsnbv-Jywrfsui-Wmafgtb* (Creon DR* 24,000) 24,000 L-76,000-120,000 Unit Capsule., 1 CAP PO WITH MEALS, CAP 10/02/16 Fluoxetine Hcl* (Fluoxetine Hcl*) 10 Mg Capsule, 10 MG ORAL DAILY, #30 10/02/16 Topiramate* (Topiramate*) 25 Mg Tablet, 25 MG ORAL BID, #60 10/02/16 Atenolol* (Atenolol*) 25 Mg Tablet, 25 MG ORAL DAILY, #30 10/02/16 Doxazosin Mesylate* (Doxazosin Mesylate*) 4 Mg Tablet, 4 MG ORAL DAILY, #30 10/02/16 Metformin* (Glucophage*) 500 Mg Tab, 500 MG ORAL BID, #60 10/02/16 Lorazepam* (Lorazepam*) 1 Mg Tablet, 1 MG ORAL QHS, #30 10/02/16 Allopurinol* (Allopurinol*) 300 Mg Tablet, 300 MG ORAL DAILY, #30 10/02/16 Bimatoprost* (Lumigan*) 0.01%-2.5 Ml Opht Drops, 1 DROP BOTH EYES HS, EA 01/10/15 Cholecalciferol* (Vitamin D3*) 2,000 Unit Cap, 2000 UNIT PO DAILY, CAP 01/10/15 Fish Oil/[place]-3 Fatty Acids ([place] 3 Fish Oil Softgel) 1 Cap.ec Capsule.dr, 2000 MG PO DAILY, CAP 01/10/15 Ezetimibe* (Zetia*) 10 Mg Tablet, 10 MG PO HS, TAB 01/10/15 Naltrexone Hcl (Depade) 50 Mg Tablet, 50 MG PO DAILY 01/10/15 Celecoxib* (Celebrex*) 200 Mg Capsule, 200 MG PO DAILY, CAP 01/10/15 Febuxostat* (Uloric*) 80 Mg Tablet, 80 MG PO DAILY, TAB 01/10/15 Aspirin (Low Dose Aspirin) 81 Mg Tablet., 81 MG PO DAILY 01/10/15 Levothyroxine Sodium* (Synthroid*) 50 Mcg Tablet, 50 MCG PO AC BREAKFAST, TAB 01/10/15 Exenatide Microspheres (Bydureon) 2 Mg Vial, 2 MG SQ Q7D, VIAL 01/10/15 Follow-up Plan Followup with your primary doctor within the next 1-2 weeks. If you don't have one please let someone know, we can give you resources that may help you pick one. You may call Dr Denis Bains's office. he's accepting new patients Name, Degree: Denis Bains MD Specialty: Internal Medicine Comments: Office Address: [address] [place] [address] [place] [id number] Office Office You may also call your insurance company to assign one to you. Review your medication list with your nurse before leaving and if you need new prescriptions please let your nurse know. I may have made changes to your home medications or given you new prescriptions, please let your primary doctor know as well. Stay compliant with your medications and report any side effects to your PCP or pharmacist. Return to the ER if you have any concerns and cannot reach your doctors or call your insurance company, they usually have a nurse that can help you. Primary Care Provider Not On Staff Doctor Pending Labs Laboratory Tests Test 04/04/17 13:42 04/04/17 17:50 04/04/17 21:41 04/05/17 03:34 Bedside Glucose 88mg/dL (70-220) 92mg/dL (70-220) 79mg/dL (70-220) 73mg/dL (70-220) Test 04/05/17 04:35 04/05/17 04:36 04/05/17 04:38 04/05/17 08:04 White Blood Count 4.910^3/ul (4.8-10.8) Red Blood Count 3.6710^6/ul (4.20-5.40) Hemoglobin 11.0g/dl (12.0-16.0) Hematocrit 33.7% (37.0-47.0) Mean Corpuscular Volume 91.8fl (82.0-101.0) Mean Corpuscular Hemoglobin 30.0pg (29.0-33.0) Mean Corpuscular Hemoglobin Concent 32.6g/dl (32.0-37.0) Red Cell Distribution Width 13.7% (11.5-14.5) Platelet Count 49213^3/UL (140-415) Mean Platelet Volume 9.8fl (7.4-10.4) Neutrophils % 47.2% (39.0-77.0) Lymphocytes % 38.8% (15.0-51.0) Monocytes % 10.2% (0.0-11.0) Eosinophils % 2.2% (0.0-7.0) Basophils % 1.4% (0.0-2.0) Nucleated Red Blood Cells % 0.0/100WBC (0.0-0.0) Neutrophils # 2.310^3/ul (1.6-7.5) Lymphocytes # 1.910^3/ul (0.8-2.9) Monocytes # 0.510^3/ul (0.3-0.9) Eosinophils # 0.110^3/ul (0.0-0.5) Basophils # 0.110^3/ul (0.0-0.1) Nucleated Red Blood Cells # 0.010^3/ul (0.0-0.0) Amylase Level 50U/L (11-123) Lipase 172U/L (23-300) Prothrombin Time 13.6Sec (12.2-14.2) Prothrombin Time Ratio 1.1 INR International Normalized Ratio 1.04 Activated Partial Thromboplast Time 27.8Sec (25.0-35.0) Sodium Level 144mmol/L (135-144) Potassium Level 3.9mmol/L (3.5-5.1) Chloride Level 109mmol/L (97-110) Carbon Dioxide Level 28mmol/L (21-31) Anion Gap 11 (8-16) Blood Urea Nitrogen 14mg/dl (7-20) Creatinine 0.92mg/dl (0.44-1.00) Glucose Level 78mg/dl (70-220) Hemoglobin A1c 5.6% (0-5.9) Calcium Level 8.8mg/dl (8.4-10.2) Magnesium Level 1.9mg/dl (1.7-2.5) Total Bilirubin 0.8mg/dl (0.2-1.3) Direct Bilirubin 0.00mg/dl (0.00-0.20) Indirect Bilirubin 0.8mg/dl (0-1.1) Aspartate Amino Transf (AST/SGOT) 20IU/L (15-46) Alanine Aminotransferase (ALT/SGPT) 45IU/L (13-69) Alkaline Phosphatase 42IU/L (42-121) Total Protein 5.9g/dl (6.1-8.1) Albumin 3.1g/dl (3.3-4.9) Triglycerides Level 154mg/dl (0-149) Cholesterol Level 110mg/dl (100-200) LDL Cholesterol, Calculated 51mg/dl HDL Cholesterol 28mg/dl (33-92) Cholesterol/HDL Ratio 3.9RATIO Bedside Glucose 87mg/dL (70-220) WILMER FORTUNE Apr 05, 2017 11:34
[2017-04-05] MEDS ORDERED: CREON (24K-76K-120K) 1 CAP PO SCH (11:45)
[2017-04-05 11:46] VITALS: BP 153/67; PULSE 55
[2017-04-05] MEDS ORDERED: BIMATOPROST 0.01% 2.5 ML BTL BOTH EYES SCH (21:00)
[2017-04-06] MEDS ORDERED: LEVOTHYROXINE 50 MCG TAB PO SCH (07:05)
== END 2017-04-05 17:43 | disposition home or self-care (01) | DRG 440 ==
LOC: FTE 00:01 → MS3 08:11
PROVIDERS: ADMIT Family Medicine; ATTEND Family Medicine
DX: K85.90 Acute pancreatitis without necrosis or infection, unspecified (principal); E11.9 Type 2 diabetes mellitus without complications; F32.9 Major depressive disorder, single episode, unspecified; E03.9 Hypothyroidism, unspecified; E66.9 Obesity, unspecified; Z68.35 Body mass index [BMI] 35.0-35.9, adult; M10.9 Gout, unspecified; H40.9 Unspecified glaucoma; K86.1 Other chronic pancreatitis
CPT/HCPCS: 71010; 74176; 76705; 80048; 80053; 80061; 80076; 81003; 82150; 82962; 83036; 83690; 83735; 84484; 85025; 85610; 85730; 86301; 93005; 96374; 96375; C9113; J1650; J1815; J2270; J2405; J7030; J7040

== ENCOUNTER 2017-10-12 18:56 | Emergency (ER) | END 2017-10-12 20:31 | disposition home or self-care (01) ==

== ENCOUNTER 2018-08-24 17:43 | Inpatient (IN) | payer MEDICARE, OTHER ==
[~2018-08-24] VITALS: Ht 154.9 cm; Wt 83.0 kg
[~2018-08-24 17:43] MED LIST changes: +ACET325T33 PO; -ASPI-664 PO; +ASPI81TA52 PO; -ATEN-51 ORAL; -EZET10TA3 PO; +EZET10TA31 PO; -LEVO50TA83 PO; +LEVO50TA89 PO; +METF-849 ORAL; -METF500T4 ORAL; +SPIR100T4 PO; -TOPI-44 ORAL; +TOPI25TA10 ORAL
[2018-08-24] MEDS ORDERED: morphine 4 MG/ML VIAL IV STA (18:00)
[2018-08-24] MEDS ORDERED: ONDANSETRON 4 MG INJ IV STA (18:00)
[2018-08-24] MEDS ORDERED: SOD CHLORIDE 0.9% 1,000 ML IV STA ×2 (18:00→19:37)
[2018-08-24] MEDS ORDERED: FAMOTIDINE 20 MG INJ IV STA (18:00)
[2018-08-24] MEDS ORDERED: SOD CHLORIDE 0.9% 100 ML ONE (19:28)
[2018-08-24] MEDS ORDERED: IOHEXOL 300MG/ML 150 ML BTL ONE (19:28)
[2018-08-24] MEDS ORDERED: METOCLOPRAMIDE 10 MG INJ IV STA (19:37)
[2018-08-24] MEDS ORDERED: ACETAMINOPHEN 325 MG TAB PO PRN ×2 (20:00→20:30)
[2018-08-24] MEDS ORDERED: ONDANSETRON 4 MG INJ IV PRN ×2 (20:00→20:30)
--- NOTE | 2018-08-24 20:01 | ERD ---
ER Documentation Chief Complaint Chief Complaint NAUSEA VOMITING AND ABD PAIN THIS AM. INTERMITTENT FEVER. NO CP OR SOB HPI This is a 73-year-old female, [place]-speaking the presents to the emergency department complaining of multiple episodes of nonbloody nonbilious emesis, persistent nausea and abdominal pain. Abdominal pain has been persistent for roughly 12 hours. She states that the pain came on suddenly. She stated it was epigastric in origin and began to radiate to her lower back. She denies any chest pain. She has no shortness of breath. She has a history of vut-lyddgxr-nafeoselk diabetes mellitus. She states she is been unable to tolerate oral intake. She does indicate that she been having generalized myal gias and was diagnosed with the flu 3 days prior to arrival. She was placed on azithromycin and is currently on day 3 of 5 of the antibiotics. She denies any hemoptysis hematemesis or melanotic stools. No recent travel or prolonged immobilization. Past surgical history includes cholecystectomy ROS All systems reviewed and are negative except as per history of present illness. Medications Home Meds Active Scripts Acetaminophen* (Tylenol*) 325 Mg Tablet, 2 TAB PO Q8 PRN for PAIN AND OR ELEVATED TEMP, #20 TAB Prov:FABIOLA SARMIENTO MD 10/12/17 Lorazepam* (Lorazepam*) 1 Mg Tablet, 1 MG ORAL QHS PRN for AGITATION/ANXIETY, #30 Prov:WILMER FORTUNE. 04/05/17 Celecoxib* (Celebrex*) 200 Mg Capsule, 200 MG PO DAILY PRN for PAIN for 30 Days, CAP Prov:WILMER FORTUNE 04/05/17 Hydrocodone Bit-Acetaminophen* ([place]*) 5-325 Mg Tab, 1 TAB PO Q6 PRN for PAIN, #20 TAB Prov:DINH FRIED MD 01/10/15 Reported Medications Spironolactone* (Spironolactone*) 100 Mg Tablet, 25 MG PO DAILY, TAB 04/04/17 Valsartan* (Diovan*) 80 Mg Tablet, 80 MG PO DAILY, TAB 10/02/16 Linaclotide (LINZESS) 145 Mcg Capsule, 145 MCG PO DAILY, #30 CAP 10/02/16 Dlcaps-Xvhamntz-Ceunldc* (Manoj DR* 24,000) 24,000 L-76,000-120,000 Unit Capsule.dr, 1 CAP PO WITH MEALS, CAP 10/02/16 Fluoxetine Hcl* (Fluoxetine Hcl*) 10 Mg Capsule, 10 MG ORAL DAILY, #30 10/02/16 Topiramate* (Topiramate*) 25 Mg Tablet, 25 MG ORAL BID, #60 10/02/16 Doxazosin Mesylate* (Doxazosin Mesylate*) 4 Mg Tablet, 4 MG ORAL DAILY, #30 10/02/16 Metformin* (Glucophage*) 500 Mg Tab, 500 MG ORAL BID, #60 10/02/16 Allopurinol* (Allopurinol*) 300 Mg Tablet, 300 MG ORAL DAILY, #30 10/02/16 Bimatoprost* ([place]umigan*) 0.01%-2.5 Ml Opht Drops, 1 DROP BOTH EYES HS, EA 01/10/15 Cholecalciferol* (Vitamin D3*) 2,000 Unit Cap, 2000 UNIT PO DAILY, CAP 01/10/15 Fish Oil/[place]-3 Fatty Acids ([place] 3 Fish Oil Softgel) 1 Cap.ec Capsule.dr, 2000 MG PO DAILY, CAP 01/10/15 Ezetimibe* (Zetia*) 10 Mg Tablet, 10 MG PO HS, TAB 01/10/15 Naltrexone Hcl (Depade) 50 Mg Tablet, 50 MG PO DAILY 01/10/15 Febuxostat* (Uloric*) 80 Mg Tablet, 80 MG PO DAILY, TAB 01/10/15 Aspirin (Low Dose Aspirin) 81 Mg Tablet.dr, 81 MG PO DAILY 01/10/15 Levothyroxine Sodium* (Synthroid*) 50 Mcg Tablet, 50 MCG PO AC BREAKFAST, TAB 01/10/15 Exenatide Microspheres (Bydureon) 2 Mg Vial, 2 MG SQ Q7D, VIAL 01/10/15 Allergies Allergies: Coded Allergies: No Known Allergy (Unverified , 01/10/15) PMhx/Soc History of Surgery: Yes ([place], laser sx of the bladder) Anesthesia Reaction: No Hx Neurological Disorder: Yes (Back pain, Vertigo) Hx Respiratory Disorders: No Hx Cardiac Disorders: Yes (HTN,palpitation and irregular heart beat) Hx Psychiatric Problems: No Hx Miscellaneous Medical Probl: Yes (DM, arthritis, glaucoma, colonoscopy) Hx Alcohol Use: Yes (occasionally) Hx Substance Use: No Hx Tobacco Use: No Smoking Status: Never smoker Physical Exam Vitals Vital Signs Date Temp Pulse Resp B/P (MAP) Pulse Ox O2 O2 Flow FiO2 Time Delivery Rate 08/24/18 98.2 78 20 170/89 98 18:11 (116) Physical Exam Constitutional:Well-developed. Well-nourished. HEENT:Normocephalic. Atraumatic.Pupils were equal round reactive to light. Dry mucous membranes.No tonsillar exudates. Neck: No nuchal rigidity. No lymphadenopathy. No posterior cervical spine ten derness or step-offs. Respiratory: Not using accessory muscles of respiration.Lungs were clear to au scultation bilaterally. No rhonchi. No rales. No wheezing. Cardiovascular: Regular rate regular rhythm.No murmurs. No rubs were appreciated.S1, S2 normal. Distal pulses are palpable 2+ bilaterally. GI: Abdomen was soft. Epigastric tenderness and tenderness in the left lower quadrant. Non Distended. No pulsatile abdominal masses or bruits. No rebound. No guarding. Bowel sounds were present and normal. Muscle skeletal: Full range of motion of both the upper and lower extremities bilaterally.Normal muscle tone.No assymetrical calf tenderness or swelling. Skin: No petechia, no purpura. No lesions on the palms or the soles of the feet. No maculopapular rash. NEURO: Patient was alert, awake, orientated x3.No facial droop. Gait observed and normal with no ataxia.Speech had regular rate and rhythm. No focal neurological deficits. Result Diagram: 08/24/18 [id number]/181824 Results 24 hrs Laboratory Tests Test 08/24/18 18:25 08/24/18 20:00 White Blood Count 4.0 10^3/ul Red Blood Count 4.07 10^6/ul Hemoglobin 11.8 g/dl Hematocrit 33.9 % Mean Corpuscular Volume 83.3 fl Mean Corpuscular Hemoglobin 29.0 pg Mean Corpuscular Hemoglobin Concent 34.8 g/dl Red Cell Distribution Width 12.7 % Platelet Count 284 10^3/UL Mean Platelet Volume 8.9 fl Immature Granulocytes % 0.200 % Neutrophils % 65.4 % Lymphocytes % 21.3 % Monocytes % 12.7 % Eosinophils % 0.2 % Basophils % 0.2 % Nucleated Red Blood Cells % 0.0 /100WBC Immature Granulocytes # 0.010 10^3/ul Neutrophils # 2.6 10^3/ul Lymphocytes # 0.9 10^3/ul Monocytes # 0.5 10^3/ul Eosinophils # 0.0 10^3/ul Basophils # 0.0 10^3/ul Nucleated Red Blood Cells # 0.0 10^3/ul Prothrombin Time 12.6 Sec Prothrombin Time Ratio 1.0 INR International Normalized Ratio 0.93 Activated Partial Thromboplast Time 29.3 Sec Sodium Level 114 mmol/L Potassium Level 4.4 mmol/L Chloride Level 76 mmol/L Carbon Dioxide Level 21 mmol/L Anion Gap 17 Blood Urea Nitrogen 15 mg/dl Creatinine 0.79 mg/dl Est Glomerular Filtrat Rate mL/min mL/min Glucose Level 157 mg/dl Calcium Level 9.1 mg/dl Total Bilirubin 0.4 mg/dl Direct Bilirubin 0.00 mg/dl Indirect Bilirubin 0.4 mg/dl Aspartate Amino Transf (AST/SGOT) 29 IU/L Alanine Aminotransferase (ALT/SGPT) 20 IU/L Alkaline Phosphatase 48 IU/L Troponin I < 0.012 ng/ml Total Protein 6.8 g/dl Albumin 4.3 g/dl Globulin 2.50 g/dl Albumin/Globulin Ratio 1.72 Amylase Level 72 U/L Lipase 168 U/L Urine Color STRAW Urine Clarity CLEAR Urine pH 6.0 Urine Specific [place] 1.013 Urine Ketones 1+ mg/dL Urine Nitrite NEGATIVE mg/dL Urine Bilirubin NEGATIVE mg/dL Urine Urobilinogen NEGATIVE mg/dL Urine Leukocyte Esterase NEGATIVE Chi/ul Urine Hemoglobin NEGATIVE mg/dL Urine Glucose NEGATIVE mg/dL Urine Total Protein NEGATIVE mg/dl Current Medications Medications Dose Sig/Mi Start Time Status Last (Trade) Ordered Route PRN Stop Time Admin Dose Reason Admin Sodium 1,000 ml @ Q1H STAT 08/24/18 DC 08/24/18 Chloride 1,000 mls/hr IV 18:00 18:34 08/24/18 18:59 Morphine 4 mg ONCE STAT 08/24/18 DC 08/24/18 Sulfate IV 18:00 18:34 (morphine) 08/24/18 18:03 Ondansetron 4 mg ONCE STAT 08/24/18 DC 08/24/18 HCl (Zofran IV 18:00 18:34 Inj) 08/24/18 18:03 Famotidine 20 mg ONCE STAT 08/24/18 DC 08/24/18 (Pepcid Iv) IV 18:00 18:34 08/24/18 18:03 IV Flush 10 ml STK-MED 08/24/18 DC (NS 10 ml) ONCE .ROUTE 19:28 08/24/18 19:29 Sodium 100 ml @ ud STK-MED 08/24/18 DC Chloride ONCE .ROUTE 19:28 08/24/18 19:29 Iohexol 150 ml STK-MED 08/24/18 DC (Omnipaque ONCE .ROUTE 19: 300mg/ ml) 08/24/18 19:29 Sodium 1,000 ml @ Q1H STAT 08/24/18 08/24/18 Chloride 1,000 mls/hr IV 19:37 20:07 08/24/18 20:36 10 mg ONCE STAT 08/24/18 DC 08/24/18 Metoclopramid IV 19:37 20:07 e HCl 08/24/18 19:40 (Reglan) Ondansetron 4 mg ER BRIDGE 08/24/18 HCl (Zofran PRN IV 20:00 Inj) NAUSEA/VOMITI 08/25/18 19:59 NG 650 mg ER BRIDGE 08/24/18 Acetaminophen PRN PO 20:00 (Tylenol .MILD PAIN 08/25/18 19:59 Tab) 1-3 OR TEMP 10 mg ONCE ONCE 08/24/18 Metoclopramid IV 20:30 e HCl 08/24/18 20:31 (Reglan) IV Flush 3 ml PER 08/24/18 UNV (NS 3 ml) PROTOCOL IV 20:30 Ondansetron 4 mg Q6H PRN 08/24/18 UNV HCl (Zofran IV 20:30 Inj) NAUSEA/VOMITI NG 10 mg Q6H PRN 08/24/18 UNV Metoclopramid IV 20:30 e HCl NAUSEA/VOMITI (Reglan) NG 650 mg Q6H PRN 08/24/18 UNV Acetaminophen PO .PAIN 1-3 20:30 (Tylenol OR TEMP Tab) Procedures/MDM This patient presented to the emergency department with abdominal pain and was seen and evaluated by myself. My differential diagnosis included but was not limited to abdominal aortic aneurysm, appendicitis, pancreatitis, perforated peptic ulcer, perforated viscus, Boerhaaves syndrome or visceral pain such as diverticulitis, DKA, esophagitis, hepatitis or bowel obstruction. The patient was placed on a cafeteria monitor, continuous pulse oximetry, and IV access was established by nursing staff. The patient was given intravenous morphine and Zofran. The patient was also given IV Pepcid. I obtained a 12-lead EKG tracing to rule out for atypical myocardial ischemia. 12 Lead EKG tracing ordered and reviewed by myself showed: Normal sinus rhythm of 68 bpm and no arrhythmia. GA interval normal. QRS duration normal. No ST segment elevation No ST segment depression. No changes consistent with acute ischemia. The patient had no leukocytosis. The patient had severe hyponatremia which is likely was a result of hypovolemic hyponatremia. Therefore the patient was initially treated with a liter bolus of normal saline. The bridge game director Dr. Hdez has been consulted and the patient will be admitted in serious condition to the telemetry service under the care of Dr. Delcid. I also had obtained a chest radiograph to rule out the possibility of aspiration pneumonia as the daughter was now present stated after one episode of emesis the patient had a coughing and choking episode. Chest radiograph showed no infiltrates or pneumothorax. Urinalysis is currently pending I obtained a CT scan of the abdomen and there is no evidence of an abdominal aortic aneurysm, diverticulitis or perforation. I did indicate to the patient and her family that I felt this could likely be result of a viral etiology but given that the patient was unable to tolerate oral intake in the emergency department with severe hyponatremia she will continue to be monitored for IV fluid resuscitation. The patient had no neurological changes or signs of hyponatremia that required hypertonic saline. Departure Diagnosis: Primary Impression: Dehydration with hyponatremia Additional Impression: Intractable nausea and vomiting Vomiting type: unspecified Qualified Codes: R11.2 - Nausea with vomiting, unspecified Condition: Serious DINH FRIED MD Aug 24, 2018 20:01
[2018-08-24] MEDS ORDERED: NACL 0.9% 3 ML SYG IV SCH (20:30)
[2018-08-24] MEDS ORDERED: METOCLOPRAMIDE 10 MG INJ IV ONE (20:30)
[2018-08-24] MEDS ORDERED: METOCLOPRAMIDE 10 MG INJ IV PRN (20:30)
[2018-08-24] MEDS ORDERED: hydrALAzine 20 MG INJ IV PRN (20:30)
[2018-08-24 21:30] VITALS: Ht 154.9 cm; Wt 83.0 kg
[2018-08-24 21:37] VITALS: PULSE 94
[2018-08-24 21:40] VITALS: BP 134/63; PULSE 59; RESP 18
--- NOTE | 2018-08-24 22:31 | HP ---
Date/Time of Note Date/Time of Note DATE: 08/24/18 TIME: 22:31 Assessment/Plan VTE Prophylaxis SCD applied (from Nsg): Yes Pharmacological prophylaxis: NA/contraindicated Pharm contraindication: low risk/ambulating Assessment/Plan Hospital Course This is a 73-year-old female being admitted to the telemetry floor for: #1 severe hyponatremia: Appears to be hypovolemic hyponatremia, though SIADH is possibility. Possibly a contribution of recent illness, antihypertensives and diuretics. She did receive 2 L of normal saline bolus in the ED. We will get a repeat stat BMP at the current time and check every 2 hours. Goal is to increase his sodium above 120 in the next few hours, and then not exceed more than 4-6meq over the next 24 hours. Nephrology has been consulted by the ED for further fluid management orders. Patient is currently at her baseline and her nausea has improved. Renal diet. Will check osmolarity, fractional excretion of sodium, microscopic UA. Will need to review all of home meds as well for p ossible effects on sodium. #2 hypertension: PRN hydralazine, will hold current home medications especially the diuretics given #1. #3 diabetes mellitus: We will check hemoglobin A1c, insulin sliding scale #4 Glaucoma: Continue home eyedrops #5 Normocytic anemia: No signs of bleeding. Follow-up with outpatient #6 DVT GI prophylaxis: SCDs, no GI prophylaxis indicated Further treatment strategy will be implemented as per the clinical course. Result Diagram: 08/24/18182408/24/18 1825 Results 24hrs Laboratory Tests Test 08/24/18 18:25 08/24/18 20:00 White Blood Count 4.0 #L Red Blood Count 4.07 L Hemoglobin 11.8 L Hematocrit 33.9 L Mean Corpuscular Volume 83.3 Mean Corpuscular Hemoglobin 29.0 Mean Corpuscular Hemoglobin Concent 34.8 Red Cell Distribution Width 12.7 Platelet Count 284 Mean Platelet Volume 8.9 Immature Granulocytes % 0.200 Neutrophils % 65.4 Lymphocytes % 21.3 Monocytes % 12.7 H Eosinophils % 0.2 Basophils % 0.2 Nucleated Red Blood Cells % 0.0 Immature Granulocytes # 0.010 Neutrophils # 2.6 Lymphocytes # 0.9 Monocytes # 0.5 Eosinophils # 0.0 Basophils # 0.0 Nucleated Red Blood Cells # 0.0 Prothrombin Time 12.6 Prothrombin Time Ratio 1.0 INR International Normalized Ratio 0.93 Activated Partial Thromboplast Time 29.3 Sodium Level 114 *L Potassium Level 4.4 Chloride Level 76 L Carbon Dioxide Level 21 Anion Gap 17 H Blood Urea Nitrogen 15 Creatinine 0.79 Est Glomerular Filtrat Rate mL/min Glucose Level 157 Calcium Level 9.1 Total Bilirubin 0.4 Direct Bilirubin 0.00 Indirect Bilirubin 0.4 Aspartate Amino Transf (AST/SGOT) 29 Alanine Aminotransferase (ALT/SGPT) 20 Alkaline Phosphatase 48 Troponin I < 0.012 Total Protein 6.8 Albumin 4.3 Globulin 2.50 Albumin/Globulin Ratio 1.72 Amylase Level 72 Lipase 168 Urine Color STRAW Urine Clarity CLEAR Urine pH 6.0 Urine Specific [place] 1.013 Urine Ketones 1+ H Urine Nitrite NEGATIVE Urine Bilirubin NEGATIVE Urine Urobilinogen NEGATIVE Urine Leukocyte Esterase NEGATIVE Urine Microscopic RBC 0 Urine Microscopic WBC 0 Urine Bacteria FEW A Urine Hemoglobin NEGATIVE Urine Osmolality 310 Urine Random Sodium 100 H Urine Glucose NEGATIVE Urine Total Protein NEGATIVE Osmolality 235 L HPI/ROS Admit Date/Time Admit Date/Time Aug 24, 2018 at 19:45 Hx of Present Illness Chief complaint: Epigastric pain, persistent nausea and vomiting Following history was obtained from the patient with the help of a launch steward as well as the family at the bedside. This is a 73-year-old female, who presented to the emergency department complaining of multiple episodes of nonbloody nonbilious emesis, persistent nausea and abdominal pain. Abdominal pain has been persistent for roughly 12 hours. She states that the pain came on suddenly. She stated it was epigastric in origin and began to radiate to her lower back. She denies any chest pain. She has no shortness of breath. She has a history of uex-mujmjty-aywmcvejz diabetes mellitus. She reported that she was not able to tolerate p.o. And she has had nausea and vomiting. She apparently was diagnosed with the flu a couple of days ago and was started on azithromycin. She denies any headaches or any co nfusion or seizures. Allergies: NKDA Medications: See Jul Const: As per HPI Eyes : No pain discharge or redness or change in visual acuity ENT: No pain, sore throat, congestion, congestion, dysphagia or discharge Respiratory: No shortness of breath, cough, sputum, wheezing, or pleuritic pain Cardiovascular: No chest pain, palpitation, PND, or edema GI : As per HPI Genitourinary: No dysuria, hematuria, flank pain , discharge or CVA tenderness Musculoskeletal: No joint pain, back pain, neck pain, restricted range of motion in neck or joints Skin: No rash, bruising or hives Neuro: No headache, dizziness, syncope, seizure, focal weakness Endocrine: No polyuria, polydipsia, temperature intolerance Psych: No hallucination, depression, anxiety or suicidal ideation PMH/Family/Social Past Medical History Hypertension, diabetes, glaucoma Medications Current Medications IV Flush (NS 3 ml) 3 ml PER PROTOCOL IV ; Start 08/24/18 at 20:30 Ondansetron HCl (Zofran Inj) 4 mg Q6H PRN IV NAUSEA/VOMITING; Start 08/24/18 at 20:30 Metoclopramide HCl (Reglan) 10 mg Q6H PRN IV NAUSEA/VOMITING; Start 08/24/18 at 20:30 Acetaminophen (Tylenol Tab) 650 mg Q6H PRN PO .PAIN 1-3 OR TEMP; Start 08/24/18 at 20:30 Hydralazine HCl (Apresoline) 10 mg Q4H PRN IV ELEVATED BLOOD PRESSURE; Start 08/24/18 at 20:30 Coded Allergies: No Known Allergy (Unverified , 01/10/15) Past Surgical History Past Surgical Hx: cholecystectomy Family History Significant Family History: no pertinent family hx Social History Alcohol Use: none Smoking Status: Never smoker Drug Use: none Exam/Review of Systems Vital Signs Vitals Vital Signs Date Temp Pulse Resp B/P (MAP) Pulse Ox O2 O2 Flow FiO2 Time Delivery Rate 08/24/18 98.2 71 20 153/58 96 Room Air 20:36 (89) Exam Exam General: Patient is currently lying in bed, she does appear tired but she is not in any acute distress HEENT: Atraumatic, normocephalic. The pupils are equal, round and reactive. Extraocular motor are intact, mucous membranes dry Neck: Supple with full range of motion. No rigidity or meningismus Chest: Nontender Lungs: Clear to auscultation bilaterally no crackles rales or wheezing Heart: Normal S1-S2, Regular rhythm and rate. No murmur, S3, or S4 Abdomen: Soft , nontender, nondistended , bowel sounds are present. No guarding no rebound tenderness , No masses or organomegaly. No costovertebral temporal angle mass Extremities: Normal to inspection, no edema no cyanosis Neurologic: Normal mental status, speech normal, cranial nerves II through XII are intact, motor and sensory are intact, gait not assessed Additional Comments PROCEDURE: CT Abdomen and Pelvis with contrast. CLINICAL INDICATION: Abdominal pain. TECHNIQUE: A CT scan of the abdomen and pelvis was performed with intravenous contrast. The patient was scanned following the uncomplicated intravenous administration of 110 cc of Omnipaque-300. Coronal and sagittal reformatted images were obtained from the axial source images. DICOM images are available. Images were reviewed on a high-resolution PACS workstation. CTDIvol: 20.27 mGy. DLP: 1251.45 mGy-cm. One or more of the following dose reduction techniques were used: - Automated exposure control. - Adjustment of the mA and/or kV according to patient size. - Use of iterative reconstruction technique. COMPARISON: 04/04/2017 FINDINGS: There are mild atelectatic changes in the lower lungs. A trace left pleural effusion is identified. The liver is unremarkable. The patient is status post cholecystectomy. There is mild intrahepatic and extrahepatic biliary ductal dilatation, probably due to absence of the gallbladder. The spleen is not enlarged. No pancreatic lesion is identified and there is no pancreatic ductal dilatation. The adrenal glands are unremarkable. The kidneys are normal in size. There is mild symmetric perinephric fat stranding, probably age-related. No hydronephrosis is seen. There are cysts in both kidneys measuring up to 1.2 cm on the right. There is a small hiatal hernia. The small and large bowel are normal in caliber. There is no bowel wall thickening. The appendix is normal. The urinary bladder is unremarkable. The pelvic organs are within normal limits. There are small bilateral fat containing inguinal hernias, right larger than left. No lymphadenopathy is identified. There is a small volume of pelvic ascites. No pneumoperitoneum is seen. There are mild arterial calcifications. No suspicious osseous lesion is idenitified. There is grade 1 degenerative L4 anterolisthesis. Healed left rib fractures are again noted. IMPRESSION: No inflammation, mass, or lymphadenopathy. Status post cholecystectomy. Small hiatal hernia. Normal appendix. Small bilateral fat containing inguinal hernias, right larger than left. Small volume of pelvic ascites. Mild atherosclerotic arterial calcifications. Trace left pleural effusion. RPTAT: HTAR .Munir Ibarra MD, MD Date Time Electronically viewed and signed by .Munir Ibarra MD, MD on 08/24/2018 20:31 .R/ CC: DINH FRIED MD [id number] PROCEDURE: XR 1 view Chest. CLINICAL INDICATION: Sepsis. TECHNIQUE: Portable Single frontal view of the chest was obtained. COMPARISON: CHEST 10/12/2017 FINDINGS: The heart is normal in size. There are mild aortic calcifications. There is no focal consolidation. There is no pleural effusion. No pneumothorax is identified. The osseous structures are intact. There is mild to moderate spondylosis/enthesopathy within the thoracic spine. IMPRESSION: No significant change. No evidence for acute cardiopulmonary disease. Aortic calcifications. Further findings as detailed above. RPTAT: HVF .Will Barclay MD, MD Date Time Electronically viewed and signed by .Will Barclay MD, MD on 08/24/2018 19:31 .F/ CC: DINH FRIED MD [id number] NEHEMIAH MARTINES Aug 24, 2018 22:31
[2018-08-24] MEDS ORDERED: SOD CHLORIDE 0.9% 1,000 ML IV SCH (23:30)
[2018-08-25] VITALS (11 sets, daily range): BP systolic 112–178; BP diastolic 56–85; PULSE 44–67; RESP 18–20
[2018-08-25] MEDS ORDERED: morphine 2 MG INJ IV ONE (03:07)
[2018-08-25] MEDS: NACL 3% 500 ML IV SCH ×2 (07:58→18:59)
[2018-08-25] MEDS ORDERED: SOD CHLORIDE 0.9% 1,000 ML IV ONE (08:00)
[2018-08-25] MEDS ORDERED: LORAZEPAM 1 MG TAB PO PRN (09:00)
[2018-08-25] MEDS: ASPIRIN (EC) 81 MG TAB PO SCH (11:40)
[2018-08-25] MEDS: CREON (24K-76K-120K) 1 CAP PO SCH ×2 (11:40→17:45)
--- NOTE | 2018-08-25 13:37 | CONS ---
Assessment/Plan Assessment/Plan Assessment/Plan (Daily) 1. severe hyponatremia: - possibly due to SIADH based on urine studies. however, urine was collected on aldactone, thus will need to be repeated tomorrow - SIADH may be due to fluoxetine use, but cannot rule out [employer] process with headache. if repeat urine studies confirm SIADH, then will recommend head ct - will start patient on 3% and check Na Q6h. goal Na increase is 0.5mmol/L/hour - tsh wnl 2. HTN: - cont current meds and titrate as needed 3. DM: - cont ssi 4. anemia: - cont to monitor hg #2 hypertension: PRN hydralazine, will hold current home medications especially the diuretics given #1. #3 diabetes mellitus: We will check hemoglobin A1c, insulin sliding scale #4 Glaucoma: Continue home eyedrops #5 Normocytic anemia: No signs of bleeding. Follow-up with outpatient Consultation Date/Type/Reason Admit Date/Time Aug 24, 2018 at 19:45 Type of Consult nephrology Reason for Consultation hyponatremia Date/Time of Note DATE: 08/25/18 TIME: 13:28 Hx of Present Illness This is a 73-year-old female, with hx of DM, and HTN and who presented to the emergency department complaining of multiple episodes of nonbloody nonbilious emesis, persistent nausea and abdominal pain. ER evaluation was notable for Na of 114. CT a/p did not show acute abnormalities. She was given IVF and admitted. She complains of headache that has improved with tylenol. She denies hx of electrolyte disorder. Her home meds include aldactone and fluoxetine. Allergies: NKDA Medications: See JUL ROS Const: As per HPI Eyes : No pain discharge or redness or change in visual acuity ENT: No pain, sore throat, congestion, congestion, dysphagia or discharge Respiratory: No shortness of breath, cough, sputum, wheezing, or pleuritic pain Cardiovascular: No chest pain, palpitation, PND, or edema GI : As per HPI Genitourinary: No dysuria, hematuria, flank pain , discharge or CVA tenderness Musculoskeletal: No joint pain, back pain, neck pain, restricted range of motion in neck or joints Skin: No rash, bruising or hives Neuro: No headache, dizziness, syncope, seizure, focal weakness Endocrine: No polyuria, polydipsia, temperature intolerance Psych: No hallucination, depression, anxiety or suicidal ideation PMH/Family/Social PMH/Family/Social Past Medical History Hypertension, diabetes, glaucoma Medications Current Medications IV Flush (NS 3 ml) 3 ml PER PROTOCOL IV ; Start 08/24/18 at 20:30 Ondansetron HCl (Zofran Inj) 4 mg Q6H PRN IV NAUSEA/VOMITING; Start 08/24/18 at 20:30 Metoclopramide HCl (Reglan) 10 mg Q6H PRN IV NAUSEA/VOMITING; Start 08/24/18 at 20:30 Acetaminophen (Tylenol Tab) 650 mg Q6H PRN PO .PAIN 1-3 OR TEMP; Start 08/24/18 at 20:30 Hydralazine HCl (Apresoline) 10 mg Q4H PRN IV ELEVATED BLOOD PRESSURE; Start 08/24/18 at 20:30 Coded Allergies: No Known Allergy (Unverified , 01/10/15) Past Surgical History Past Surgical Hx: cholecystectomy Family History Significant Family History: no pertinent family hx Social History Alcohol Use: none Smoking Status: Never smoker Drug Use: none Past Medical History Home Meds Active Scripts Acetaminophen* (Tylenol*) 325 Mg Tablet, 2 TAB PO Q8 PRN for PAIN AND OR ELEVATED TEMP, #20 TAB Prov:FABIOLA SARMIENTO MD 10/12/17 Lorazepam* (Lorazepam*) 1 Mg Tablet, 1 MG ORAL QHS PRN for AGITATION/ANXIETY, #30 Prov:WILMER FORTUNE 04/05/17 Celecoxib* (Celebrex*) 200 Mg Capsule, 200 MG PO DAILY PRN for PAIN for 30 Days, CAP Prov:WILMER FORTUNE 04/05/17 Hydrocodone Bit-Acetaminophen* (Graham*) 5-325 Mg Tab, 1 TAB PO Q6 PRN for PAIN, #20 TAB Prov:DINH FRIED MD 01/10/15 Reported Medications Spironolactone* (Spironolactone*) 100 Mg Tablet, 25 MG PO DAILY, TAB 04/04/17 Valsartan* (Diovan*) 80 Mg Tablet, 80 MG PO DAILY, TAB 10/02/16 Linaclotide (LINZESS) 145 Mcg Capsule, 145 MCG PO DAILY, #30 CAP 10/02/16 Ixrnii-Nqshopyx-Jshsdkh* (Creon DR* 24,000) 24,000 L-76,000-120,000 Unit Capsule.dr, 1 CAP PO WITH MEALS, CAP 10/02/16 Fluoxetine Hcl* (Fluoxetine Hcl*) 10 Mg Capsule, 10 MG ORAL DAILY, #30 10/02/16 Topiramate* (Topiramate*) 25 Mg Tablet, 25 MG ORAL BID, #60 10/02/16 Doxazosin Mesylate* (Doxazosin Mesylate*) 4 Mg Tablet, 4 MG ORAL DAILY, #30 10/02/16 Metformin* (Glucophage*) 500 Mg Tab, 500 MG ORAL BID, #60 10/02/16 Allopurinol* (Allopurinol*) 300 Mg Tablet, 300 MG ORAL DAILY, #30 10/02/16 Bimatoprost* (Lumigan*) 0.01%-2.5 Ml Opht Drops, 1 DROP BOTH EYES HS, EA 01/10/15 Cholecalciferol* (Vitamin D3*) 2,000 Unit Cap, 2000 UNIT PO DAILY, CAP 01/10/15 Fish Oil/[place]-3 Fatty Acids ([place]w 3 Fish Oil Softgel) 1 Cap.ec Capsule.dr, 2000 MG PO DAILY, CAP 01/10/15 Ezetimibe* (Zetia*) 10 Mg Tablet, 10 MG PO HS, TAB 01/10/15 Naltrexone Hcl (Depade) 50 Mg Tablet, 50 MG PO DAILY 01/10/15 Febuxostat* (Uloric*) 80 Mg Tablet, 80 MG PO DAILY, TAB 01/10/15 Aspirin (Low Dose Aspirin) 81 Mg Tablet., 81 MG PO DAILY 01/10/15 Levothyroxine Sodium* (Synthroid*) 50 Mcg Tablet, 50 MCG PO AC BREAKFAST, TAB 01/10/15 Exenatide Microspheres (Bydureon) 2 Mg Vial, 2 MG SQ Q7D, VIAL 01/10/15 Medications Current Medications IV Flush (NS 3 ml) 3 ml PER PROTOCOL IV ; Start 08/24/18 at 20:30 Ondansetron HCl (Zofran Inj) 4 mg Q6H PRN IV NAUSEA/VOMITING Last administered on 08/25/18at 07:58; Admin Dose 4 MG; Start 08/24/18 at 20:30 Metoclopramide HCl (Reglan) 10 mg Q6H PRN IV NAUSEA/VOMITING; Start 08/24/18 at 20:30 Acetaminophen (Tylenol Tab) 650 mg Q6H PRN PO .PAIN 1-3 OR TEMP Last administered on 08/25/18at 12:07; Admin Dose 650 MG; Start 08/24/18 at 20:30 Hydralazine HCl (Apresoline) 10 mg Q4H PRN IV ELEVATED BLOOD PRESSURE; Start 08/24/18 at 20:30 Sodium Chloride 500 ml @ 30 mls/hr [id number] IV Last administered on 08/25/18at 0 7:58; Admin Dose 30 MLS/HR; Start 08/25/18 at 08:00 Aspirin (Halfprin) 81 mg DAILY PO Last administered on 08/25/18at 11:40; Admin Dose 81 MG; Start 08/25/18 at 09:00 Latanoprost (Xalatan) 1 drop HS BOTH EYES ; Start 08/25/18 at 21:00 EZETIMIBE (Zetia) 10 mg HS PO ; Start 08/25/18 at 21:00 Levothyroxine Sodium (Synthroid) 50 mcg AC BREAKFAST PO ; Start 08/26/18 at 07:25 Amylase/Lipase/ Protease (Creon ([id number])) 1 cap WITH MEALS PO Last administered on 08/25/18at 11:40; Admin Dose 1 CAP; Start 08/25/18 at 11:50 Lorazepam (Ativan) 1 mg QHS PRN PO AGITATION/ANXIETY; Start 08/25/18 at 09:00 Allergies: Coded Allergies: No Known Allergy (Unverified , 01/10/15) Past Surgical History Past Surgical Hx: cholecystectomy Social History Alcohol Use: none Smoking Status: Never smoker Drug Use: none Exam/Review of Systems Exam Vitals Vital Signs Date Temp Pulse Resp B/P (MAP) Pulse Ox O2 O2 Flow FiO2 Time Delivery Rate 08/25/18 61 12:01 08/25/18 98.1 18 160/70 94 11:19 (100) 08/24/18 Room Air 20:36 Intake and Output 08/24/18 08/24/18 08/25/18 1515:00 23:00 07:00 IntakeIntake Total 930 ml BalanceBalance 930 ml Exam gen nad cv rrr pulm ctab abd soft, nd, nt +bs ext: no edema Results Result Diagram: 08/24/18 1825 08/25/18 1103 Results 24hrs Laboratory Tests Test 08/24/18 18:25 08/24/18 20:00 08/24/18 22:02 08/25/18 00:45 White Blood Count 4.0 #L Red Blood Count 4.07 L Hemoglobin 11.8 L Hematocrit 33.9 L Mean Corpuscular 83.3 Volume Mean Corpuscular 29.0 Hemoglobin Mean Corpuscular 34.8 Hemoglobin Concent Red Cell 12.7 Distribution Width Platelet Count 284 Mean Platelet Volume 8.9 Immature 0.200 Granulocytes % Neutrophils % 65.4 Lymphocytes % 21.3 Monocytes % 12.7 H Eosinophils % 0.2 Basophils % 0.2 Nucleated Red Blood 0.0 Cells % Immature 0.010 Granulocytes # Neutrophils # 2.6 Lymphocytes # 0.9 Monocytes # 0.5 Eosinophils # 0.0 Basophils # 0.0 Nucleated Red Blood 0.0 Cells # Prothrombin Time 12.6 Prothrombin Time 1.0 Ratio INR International 0.93 Normalized Ratio Activated 29.3 Partial Thromboplast Time Sodium Level 114 *L 116 *L 115 *L Potassium Level 4.4 4.6 4.5 Chloride Level 76 L 80 L 84 L Carbon Dioxide Level 21 23 21 Anion Gap 17 H 13 10 Blood Urea Nitrogen 15 13 12 Creatinine 0.79 0.75 0.68 Est Glomerular Filtrat Rate mL/min Glucose Level 157 144 131 Calcium Level 9.1 8.1 L 8.2 L Total Bilirubin 0.4 Direct Bilirubin 0.00 Indirect Bilirubin 0.4 Aspartate Amino 29 Transf (AST/SGOT) Alanine 20 Aminotransferase (AL T/SGPT) Alkaline Phosphatase 48 Troponin I < 0.012 Total Protein 6.8 Albumin 4.3 Globulin 2.50 Albumin/Globulin 1.72 Ratio Amylase Level 72 Lipase 168 Urine Color STRAW Urine Clarity CLEAR Urine pH 6.0 Urine Specific 1.013 [place] Urine Ketones 1+ H Urine Nitrite NEGATIVE Urine Bilirubin NEGATIVE Urine Urobilinogen NEGATIVE Urine Leukocyte NEGATIVE Esterase Urine Microscopic 0 RBC Urine Microscopic 0 WBC Urine Bacteria FEW A Urine Hemoglobin NEGATIVE Urine Osmolality 310 Urine Random Sodium 100 H Urine Glucose NEGATIVE Urine Total Protein NEGATIVE Osmolality 235 L Test 08/25/18 02:33 08/25/18 07:25 08/25/18 11:03 Sodium Level 118 *L 118 *L 117 *L Potassium Level 4.7 3.9 3.9 Chloride Level 83 L 83 L 81 L Carbon Dioxide Level 25 24 24 Anion Gap 10 11 12 Blood Urea Nitrogen 12 11 10 Creatinine 0.80 0.71 0.73 Est Glomerular Filtrat Rate mL/min Glucose Level 113 79 102 Calcium Level 8.0 L 7.9 L 8.0 L Hemoglobin A1c 6.0 H Triglycerides Level 119 Cholesterol Level 98 L LDL Cholesterol, 40 Calculated HDL Cholesterol 34 Cholesterol/HDL 2.8 Ratio Thyroid Stimulating 2.150 Hormone (TSH) Medications Medication Current Medications IV Flush (NS 3 ml) 3 ml PER PROTOCOL IV ; Start 08/24/18 at 20:30 Ondansetron HCl (Zofran Inj) 4 mg Q6H PRN IV NAUSEA/VOMITING Last administered on 08/25/18 07:58; Admin Dose 4 MG; Start 08/24/18 at 20:30 Metoclopramide HCl (Reglan) 10 mg Q6H PRN IV NAUSEA/VOMITING; Start 08/24/18 at 20:30 Acetaminophen (Tylenol Tab) 650 mg Q6H PRN PO .PAIN 1-3 OR TEMP Last administered on 08/25/18at 12:07; Admin Dose 650 MG; Start 08/24/18 at 20:30 Hydralazine HCl (Apresoline) 10 mg Q4H PRN IV ELEVATED BLOOD PRESSURE; Start 08/24/18 at 20:30 Sodium Chloride 500 ml @ 30 mls/hr [id number] IV Last administered on 08/25/18 07:58; Admin Dose 30 MLS/HR; Start 08/25/18 at 08:00 Aspirin (Halfprin) 81 mg DAILY PO Last administered on 08/25/18at 11:40; Admin Dose 81 MG; Start 08/25/18 at 09:00 Latanoprost (Xalatan) 1 drop HS BOTH EYES ; Start 08/25/18 at 21:00 EZETIMIBE (Zetia) 10 mg HS PO ; Start 08/25/18 at 21:00 Levothyroxine Sodium (Synthroid) 50 mcg AC BREAKFAST PO ; Start 08/26/18 at 07:25 Amylase/Lipase/ Protease (Creon ([id number])) 1 cap WITH MEALS PO Last administered on 4/21/19at 11:40; Admin Dose 1 CAP; Start 08/25/18 at 11:50 Lorazepam (Ativan) 1 mg QHS PRN PO AGITATION/ANXIETY; Start 08/25/18 at 09:00 AYESHA ROBERTO MD Aug 25, 2018 13:37
--- NOTE | 2018-08-25 13:40 | CONS ---
Consultation Date/Type/Reason Admit Date/Time Aug 24, 2018 at 19:45 Type of Consult nephrology Reason for Consultation hyponatremia Date/Time of Note DATE: 08/25/18 TIME: 13:39 Hx of Present Illness This is a 73-year-old female, with hx of DM, and HTN and who presented to the emergency department complaining of multiple episodes of nonbloody nonbilious emesis, persistent nausea and abdominal pain. ER evaluation was notable for Na of 114. CT a/p did not show acute abnormalities. She was given IVF and admitted. She complains of headache that has improved with tylenol. She denies hx of electrolyte disorder. Her home meds include aldactone and fluoxetine. Allergies: NKDA Medications: See Jul Const: As per HPI Eyes : No pain discharge or redness or change in visual acuity ENT: No pain, sore throat, congestion, congestion, dysphagia or discharge Respiratory: No shortness of breath, cough, sputum, wheezing, or pleuritic pain Cardiovascular: No chest pain, palpitation, PND, or edema GI : As per HPI Genitourinary: No dysuria, hematuria, flank pain , discharge or CVA tenderness Musculoskeletal: No joint pain, back pain, neck pain, restricted range of motion in neck or joints Skin: No rash, bruising or hives Neuro: No headache, dizziness, syncope, seizure, focal weakness Endocrine: No polyuria, polydipsia, temperature intolerance Psych: No hallucination, depression, anxiety or suicidal ideation PMH/Family/Social PMH/Family/Social Past Medical History Hypertension, diabetes, glaucoma Medications Current Medications IV Flush (NS 3 ml) 3 ml PER PROTOCOL IV ; Start 08/24/18 at 20:30 Ondansetron HCl (Zofran Inj) 4 mg Q6H PRN IV NAUSEA/VOMITING; Start 08/24/18 at 20:30 Metoclopramide HCl (Reglan) 10 mg Q6H PRN IV NAUSEA/VOMITING; Start 08/24/18 at 20:30 Acetaminophen (Tylenol Tab) 650 mg Q6H PRN PO .PAIN 1-3 OR TEMP; Start 08/24/18 at 20:30 Hydralazine HCl (Apresoline) 10 mg Q4H PRN IV ELEVATED BLOOD PRESSURE; Start 08/24/18 at 20:30 Coded Allergies: No Known Allergy (Unverified , 01/10/15) Past Surgical History Past Surgical Hx: cholecystectomy Family History Significant Family History: no pertinent family hx Social History Alcohol Use: none Smoking Status: Never smoker Drug Use: none Past Medical History Home Meds Active Scripts Acetaminophen* (Tylenol*) 325 Mg Tablet, 2 TAB PO Q8 PRN for PAIN AND OR ELEVATED TEMP, #20 TAB Prov:FABIOLA SARMIENTO MD 10/12/17 Lorazepam* (Lorazepam*) 1 Mg Tablet, 1 MG ORAL QHS PRN for AGITATION/ANXIETY, #30 Prov:WILMER FORTUNE M. 04/05/17 Celecoxib* (Celebrex*) 200 Mg Capsule, 200 MG PO DAILY PRN for PAIN for 30 Days, CAP Prov:WILMER FORTUNE M. 04/05/17 Hydrocodone Bit-Acetaminophen* ([place]*) 5-325 Mg Tab, 1 TAB PO Q6 PRN for PAIN, #20 TAB Prov:DINH FRIED MD 01/10/15 Reported Medications Spironolactone* (Spironolactone*) 100 Mg Tablet, 25 MG PO DAILY, TAB 04/04/17 Valsartan* (Diovan*) 80 Mg Tablet, 80 MG PO DAILY, TAB 10/02/16 Linaclotide (LINZESS) 145 Mcg Capsule, 145 MCG PO DAILY, #30 CAP 10/02/16 Dfqpzf-Tvumdgdn-Xkdautz* (Manoj DR* 24,000) 24,000 L-76,000-120,000 Unit Capsule.dr, 1 CAP PO WITH MEALS, CAP 10/02/16 Fluoxetine Hcl* (Fluoxetine Hcl*) 10 Mg Capsule, 10 MG ORAL DAILY, #30 10/02/16 Topiramate* (Topiramate*) 25 Mg Tablet, 25 MG ORAL BID, #60 10/02/16 Doxazosin Mesylate* (Doxazosin Mesylate*) 4 Mg Tablet, 4 MG ORAL DAILY, #30 10/02/16 Metformin* (Glucophage*) 500 Mg Tab, 500 MG ORAL BID, #60 10/02/16 Allopurinol* (Allopurinol*) 300 Mg Tablet, 300 MG ORAL DAILY, #30 10/02/16 Bimatoprost* (Lumigan*) 0.01%-2.5 Ml Opht Drops, 1 DROP BOTH EYES HS, EA 01/10/15 Cholecalciferol* (Vitamin D3*) 2,000 Unit Cap, 2000 UNIT PO DAILY, CAP 01/10/15 Fish Oil/[place]-3 Fatty Acids ([place] 3 Fish Oil Softgel) 1 Cap.ec Capsule.dr, 2000 MG PO DAILY, CAP 01/10/15 Ezetimibe* (Zetia*) 10 Mg Tablet, 10 MG PO HS, TAB 01/10/15 Naltrexone Hcl (Depade) 50 Mg Tablet, 50 MG PO DAILY 01/10/15 Febuxostat* (Uloric*) 80 Mg Tablet, 80 MG PO DAILY, TAB 01/10/15 Aspirin (Low Dose Aspirin) 81 Mg Tablet.dr, 81 MG PO DAILY 01/10/15 Levothyroxine Sodium* (Synthroid*) 50 Mcg Tablet, 50 MCG PO AC BREAKFAST, TAB 01/10/15 Exenatide Microspheres (Bydureon) 2 Mg Vial, 2 MG SQ Q7D, VIAL 01/10/15 Medications Current Medications IV Flush (NS 3 ml) 3 ml PER PROTOCOL IV ; Start 08/24/18 at 20:30 Ondansetron HCl (Zofran Inj) 4 mg Q6H PRN IV NAUSEA/VOMITING Last administered on 08/25/18at 07:58; Admin Dose 4 MG; Start 08/24/18 at 20:30 Metoclopramide HCl (Reglan) 10 mg Q6H PRN IV NAUSEA/VOMITING; Start 08/24/18 at 20:30 Acetaminophen (Tylenol Tab) 650 mg Q6H PRN PO .PAIN 1-3 OR TEMP Last administered on 08/25/18at 12:07; Admin Dose 650 MG; Start 08/24/18 at 20:30 Hydralazine HCl (Apresoline) 10 mg Q4H PRN IV ELEVATED BLOOD PRESSURE; Start 08/24/18 at 20:30 Sodium Chloride 500 ml @ 30 mls/hr [id number] IV Last administered on 08/25/18at 07:58; Admin Dose 30 MLS/HR; Start 08/25/18 at 08:00 Aspirin (Halfprin) 81 mg DAILY PO Last administered on 08/25/18at 11:40; Admin Dose 81 MG; Start 08/25/18 at 09:00 Latanoprost (Xalatan) 1 drop HS BOTH EYES ; Start 08/25/18 at 21:00 EZETIMIBE (Zetia) 10 mg HS PO ; Start 08/25/18 at 21:00 Levothyroxine Sodium (Synthroid) 50 mcg AC BREAKFAST PO ; Start 08/26/18 at 07:25 Amylase/Lipase/ Protease (Creon ([id number])) 1 cap WITH MEALS PO Last administered on 08/25/18at 11:40; Admin Dose 1 CAP; Start 08/25/18 at 11:50 Lorazepam (Ativan) 1 mg QHS PRN PO AGITATION/ANXIETY; Start 08/25/18 at 09:00 Allergies: Coded Allergies: No Known Allergy (Unverified , 01/10/15) Past Surgical History Past Surgical Hx: cholecystectomy Social History Alcohol Use: none Smoking Status: Never smoker Drug Use: none Exam/Review of Systems Exam Vitals Vital Signs Date Temp Pulse Resp B/P (MAP) Pulse Ox O2 O2 Flow FiO2 Time Delivery Rate 08/25/18 61 12:01 08/25/18 98.1 18 160/70 94 11:19 (100) 08/24/18 Room Air 20:36 Intake and Output 08/24/18 08/24/18 08/25/18 1414:59 22:59 06:59 IntakeIntake Total 930 ml BalanceBalance 930 ml Results Result Diagram: 08/24/18 1825 08/25/18 1103 Results 24hrs Laboratory Tests Test 08/24/18 18:25 08/24/18 20:00 08/24/18 22:02 08/25/18 00:45 White Blood Count 4.0 #L Red Blood Count 4.07 L Hemoglobin 11.8 L Hematocrit 33.9 L Mean Corpuscular 83.3 Volume Mean Corpuscular 29.0 Hemoglobin Mean Corpuscular 34.8 Hemoglobin Concent Red Cell 12.7 Distribution Width Platelet Count 284 Mean Platelet Volume 8.9 Immature 0.200 Granulocytes % Neutrophils % 65.4 Lymphocytes % 21.3 Monocytes % 12.7 H Eosinophils % 0.2 Basophils % 0.2 Nucleated Red Blood 0.0 Cells % Immature 0.010 Granulocytes # Neutrophils # 2.6 Lymphocytes # 0.9 Monocytes # 0.5 Eosinophils # 0.0 Basophils # 0.0 Nucleated Red Blood 0.0 Cells # Prothrombin Time 12.6 Prothrombin Time 1.0 Ratio INR International 0.93 Normalized Ratio Activated 29.3 Partial Thromboplast Time Sodium Level 114 *L 116 *L 115 *L Potassium Level 4.4 4.6 4.5 Chloride Level 76 L 80 L 84 L Carbon Dioxide Level 21 23 21 Anion Gap 17 H 13 10 Blood Urea Nitrogen 15 13 12 Creatinine 0.79 0.75 0.68 Est Glomerular Filtrat Rate mL/min Glucose Level 157 144 131 Calcium Level 9.1 8.1 L 8.2 L Total Bilirubin 0.4 Direct Bilirubin 0.00 Indirect Bilirubin 0.4 Aspartate Amino 29 Transf (AST/SGOT) Alanine 20 Aminotransferase (AL T/SGPT) Alkaline Phosphatase 48 Troponin I < 0.012 Total Protein 6.8 Albumin 4.3 Globulin 2.50 Albumin/Globulin 1.72 Ratio Amylase Level 72 Lipase 168 Urine Color STRAW Urine Clarity CLEAR Urine pH 6.0 Urine Specific 1.013 [place] Urine Ketones 1+ H Urine Nitrite NEGATIVE Urine Bilirubin NEGATIVE Urine Urobilinogen NEGATIVE Urine Leukocyte NEGATIVE Esterase Urine Microscopic 0 RBC Urine Microscopic 0 WBC Urine Bacteria FEW A Urine Hemoglobin NEGATIVE Urine Osmolality 310 Urine Random Sodium 100 H Urine Glucose NEGATIVE Urine Total Protein NEGATIVE Osmolality 235 L Test 08/25/18 02:33 08/25/18 07:25 08/25/18 11:03 Sodium Level 118 *L 118 *L 117 *L Potassium Level 4.7 3.9 3.9 Chloride Level 83 L 83 L 81 L Carbon Dioxide Level 25 24 24 Anion Gap 10 11 12 Blood Urea Nitrogen 12 11 10 Creatinine 0.80 0.71 0.73 Est Glomerular Filtrat Rate mL/min Glucose Level 113 79 102 Calcium Level 8.0 L 7.9 L 8.0 L Hemoglobin A1c 6.0 H Triglycerides Level 119 Cholesterol Level 98 L LDL Cholesterol, 40 Calculated HDL Cholesterol 34 Cholesterol/HDL 2.8 Ratio Thyroid Stimulating 2.150 Hormone (TSH) Medications Medication Current Medications IV Flush (NS 3 ml) 3 ml PER PROTOCOL IV ; Start 08/24/18 at 20:30 Ondansetron HCl (Zofran Inj) 4 mg Q6H PRN IV NAUSEA/VOMITING Last administered on 08/25/18at 07:58; Admin Dose 4 MG; Start 08/24/18 at 20:30 Metoclopramide HCl (Reglan) 10 mg Q6H PRN IV NAUSEA/VOMITING; Start 08/24/18 at 20:30 Acetaminophen (Tylenol Tab) 650 mg Q6H PRN PO .PAIN 1-3 OR TEMP Last administered on 08/25/18at 12:07; Admin Dose 650 MG; Start 08/24/18 at 20:30 Hydralazine HCl (Apresoline) 10 mg Q4H PRN IV ELEVATED BLOOD PRESSURE; Start 08/24/18 at 20:30 Sodium Chloride 500 ml @ 30 mls/hr [id number] IV Last administered on 08/25/18at 07:58; Admin Dose 30 MLS/HR; Start 08/25/18 at 08:00 Aspirin (Halfprin) 81 mg DAILY PO Last administered on 08/25/18at 11:40; Admin Dose 81 MG; Start 08/25/18 at 09:00 Latanoprost (Xalatan) 1 drop HS BOTH EYES ; Start 08/25/18 at 21:00 EZETIMIBE (Zetia) 10 mg HS PO ; Start 08/25/18 at 21:00 Levothyroxine Sodium (Synthroid) 50 mcg AC BREAKFAST PO ; Start 08/26/18 at 07:25 Amylase/Lipase/ Protease (Creon ([id number])) 1 cap WITH MEALS PO Last administered on 08/25/18at 11:40; Admin Dose 1 CAP; Start 08/25/18 at 11:50 Lorazepam (Ativan) 1 mg QHS PRN PO AGITATION/ANXIETY; Start 08/25/18 at 09:00 AYESHA ROBERTO MD Aug 25, 2018 13:40
--- NOTE | 2018-08-25 15:04 | PN ---
Date/Time of Note Date/Time of Note DATE: 08/25/18 TIME: 15:00 Assessment/Plan VTE Prophylaxis Risk score (from Nsg)>0 risk: 3 SCD applied (from Nsg): Yes Pharmacological prophylaxis: LMWH Lines/Catheters IV Catheter Type (from Nrsg): Saline Lock Urinary Cath still in place: No Assessment/Plan Hospital Course SUBJECTIVE: Denies any abdominal pain. OBJECTIVE: Physical Exam General: Obese, 73 year-old female lying in bed in no apparent distress. HEENT: Normocephalic, atraumatic. Eyes: Anicteric sclerae, conjunctivae clear. ENT: Nasal septum midline, oral mucosa moist. Neck supple, no JVD noticed. Respiratory: Bilaterally clear breath sounds. No use of accessory muscles of respiration. No adventitious breath sounds. Cardiovascular: S1, S2 heard. Regular rate and rhythm. Abdomen: Soft, nontender, and nondistended. Bowel sounds positive in all 4 quadrants. Genitourinary: Deferred. Extremities: No cyanosis, no clubbing, no edema. Peripheral pulses palpable. Neurologic: Cranial nerves II through XII grossly intact. The patient is awake, alert, and oriented. Skin: Normal skin turgor. No skin rashes. Labs & Vitals per chart ASSESSMENT & PLAN 73-year-old female with comorbidities including paroxysmal atrial fibrillation, hypertension, dyslipidemia, depression, diabetes mellitus type 2, hypothyroidism, and obesity, who came to the emergency room with chief complaint of epigastric abdominal pain and multiple episodes of nonbilious, nonbloody emesis, who was found to have evidence of underlying significant hyponatremia (sodium 114), who was admitted to inpatient setting for further treatment and evaluation. 1. Hyponatremia. -Etiology could be multifactorial. -Possible underlying SIADH. -On 3% saline as per nephrology. -Correct sodium levels slowly. 2. Abdominal pain with nausea/vomiting -CT of the abdomen and pelvis negative for any acute findings. -Most probably some viral gastroenteritis. -Continue symptomatic management. 3. Essential hypertension -Continue antihypertensives. 4. Diabetes mellitus type 2. -Hemoglobin A1c 6.0. -Oral medications on hold. -Monitor glycemic trends. 5. Dyslipidemia. -Continue ECT 5. 6. Hypothyroidism -Continue Synthroid. 7. History of paroxysmal atrial fibrillation -Currently in sinus rhythm. 8. Depression. -Fluoxetine on hold because of underlying hyponatremia. 9. Glaucoma. -Continue eyedrops. 10. Chronic constipation. -On Linzess at home. 11. Anemia. -Normocytic and normochromic -Etiology unclear. -Monitor H&H closely. 12. Obesity. -BMI 34 kg/m. -Will advise weight reduction. 13. Fluids, electrolytes, and nutrition. -Renal diet. 14. DVT prophylaxis. -Subcutaneous Lovenox. 15. Plan. -Continue to monitor electrolyte levels closely. -Correct sodium levels slowly. The patient was seen in collaboration with Dr. Nathan. Result Diagram: 08/24/18 1825 08/25/18 1103 Results 24hrs Laboratory Tests Test 08/24/18 18:25 08/24/18 20:00 08/24/18 22:02 08/25/18 00:45 White Blood Count 4.0 #L Red Blood Count 4.07 L Hemoglobin 11.8 L Hematocrit 33.9 L Mean Corpuscular 83.3 Volume Mean Corpuscular 29.0 Hemoglobin Mean Corpuscular 34.8 Hemoglobin Concent Red Cell 12.7 Distribution Width Platelet Count 284 Mean Platelet Volume 8.9 Immature 0.200 Granulocytes % Neutrophils % 65.4 Lymphocytes % 21.3 Monocytes % 12.7 H Eosinophils % 0.2 Basophils % 0.2 Nucleated Red Blood 0.0 Cells % Immature 0.010 Granulocytes # Neutrophils # 2.6 Lymphocytes # 0.9 Monocytes # 0.5 Eosinophils # 0.0 Basophils # 0.0 Nucleated Red Blood 0.0 Cells # Prothrombin Time 12.6 Prothrombin Time 1.0 Ratio INR International 0.93 Normalized Ratio Activated 29.3 Partial Thromboplast Time Sodium Level 114 *L 116 *L 115 *L Potassium Level 4.4 4.6 4.5 Chloride Level 76 L 80 L 84 L Carbon Dioxide Level 21 23 21 Anion Gap 17 H 13 10 Blood Urea Nitrogen 15 13 12 Creatinine 0.79 0.75 0.68 Est Glomerular Filtrat Rate mL/min Glucose Level 157 144 131 Calcium Level 9.1 8.1 L 8.2 L Total Bilirubin 0.4 Direct Bilirubin 0.00 Indirect Bilirubin 0.4 Aspartate Amino 29 Transf (AST/SGOT) Alanine 20 Aminotransferase (AL T/SGPT) Alkaline Phosphatase 48 Troponin I < 0.012 Total Protein 6.8 Albumin 4.3 Globulin 2.50 Albumin/Globulin 1.72 Ratio Amylase Level 72 Lipase 168 Urine Color STRAW Urine Clarity CLEAR Urine pH 6.0 Urine Specific 1.013 [place] Urine Ketones 1+ H Urine Nitrite NEGATIVE Urine Bilirubin NEGATIVE Urine Urobilinogen NEGATIVE Urine Leukocyte NEGATIVE Esterase Urine Microscopic 0 RBC Urine Microscopic 0 WBC Urine Bacteria FEW A Urine Hemoglobin NEGATIVE Urine Osmolality 310 Urine Random Sodium 100 H Urine Glucose NEGATIVE Urine Total Protein NEGATIVE Osmolality 235 L Test 08/25/18 02:33 08/25/18 07:25 08/25/18 11:03 Sodium Level 118 *L 118 *L 117 *L Potassium Level 4.7 3.9 3.9 Chloride Level 83 L 83 L 81 L Carbon Dioxide Level 25 24 24 Anion Gap 10 11 12 Blood Urea Nitrogen 12 11 10 Creatinine 0.80 0.71 0.73 Est Glomerular Filtrat Rate mL/min Glucose Level 113 79 102 Calcium Level 8.0 L 7.9 L 8.0 L Hemoglobin A1c 6.0 H Triglycerides Level 119 Cholesterol Level 98 L LDL Cholesterol, 40 Calculated HDL Cholesterol 34 Cholesterol/HDL 2.8 Ratio Thyroid Stimulating 2.150 Hormone (TSH) Exam/Review of Systems Exam Vitals Vital Signs Date Temp Pulse Resp B/P (MAP) Pulse Ox O2 O2 Flow FiO2 Time Delivery Rate 08/25/18 61 12:01 08/25/18 98.1 18 160/70 94 11:19 (100) 08/24/18 Room Air 20:36 Intake and Output 08/24/18 08/24/18 08/25/18 1515:00 23:00 07:00 IntakeIntake Total 930 ml BalanceBalance 930 ml Results Results 24hrs Laboratory Tests Test 08/24/18 18:25 08/24/18 20:00 08/24/18 22:02 08/25/18 00:45 White Blood Count 4.0 #L Red Blood Count 4.07 L Hemoglobin 11.8 L Hematocrit 33.9 L Mean Corpuscular 83.3 Volume Mean Corpuscular 29.0 Hemoglobin Mean Corpuscular 34.8 Hemoglobin Concent Red Cell 12.7 Distribution Width Platelet Count 284 Mean Platelet Volume 8.9 Immature 0.200 Granulocytes % Neutrophils % 65.4 Lymphocytes % 21.3 Monocytes % 12.7 H Eosinophils % 0.2 Basophils % 0.2 Nucleated Red Blood 0.0 Cells % Immature 0.010 Granulocytes # Neutrophils # 2.6 Lymphocytes # 0.9 Monocytes # 0.5 Eosinophils # 0.0 Basophils # 0.0 Nucleated Red Blood 0.0 Cells # Prothrombin Time 12.6 Prothrombin Time 1.0 Ratio INR International 0.93 Normalized Ratio Activated 29.3 Partial Thromboplast Time Sodium Level 114 *L 116 *L 115 *L Potassium Level 4.4 4.6 4.5 Chloride Level 76 L 80 L 84 L Carbon Dioxide Level 21 23 21 Anion Gap 17 H 13 10 Blood Urea Nitrogen 15 13 12 Creatinine 0.79 0.75 0.68 Est Glomerular Filtrat Rate mL/min Glucose Level 157 144 131 Calcium Level 9.1 8.1 L 8.2 L Total Bilirubin 0.4 Direct Bilirubin 0.00 Indirect Bilirubin 0.4 Aspartate Amino 29 Transf (AST/SGOT) Alanine 20 Aminotransferase (AL T/SGPT) Alkaline Phosphatase 48 Troponin I < 0.012 Total Protein 6.8 Albumin 4.3 Globulin 2.50 Albumin/Globulin 1.72 Ratio Amylase Level 72 Lipase 168 Urine Color STRAW Urine Clarity CLEAR Urine pH 6.0 Urine Specific 1.013 [place] Urine Ketones 1+ H Urine Nitrite NEGATIVE Urine Bilirubin NEGATIVE Urine Urobilinogen NEGATIVE Urine Leukocyte NEGATIVE Esterase Urine Microscopic 0 RBC Urine Microscopic 0 WBC Urine Bacteria FEW A Urine Hemoglobin NEGATIVE Urine Osmolality 310 Urine Random Sodium 100 H Urine Glucose NEGATIVE Urine Total Protein NEGATIVE Osmolality 235 L Test 08/25/18 02:33 08/25/18 07:25 08/25/18 11:03 Sodium Level 118 *L 118 *L 117 *L Potassium Level 4.7 3.9 3.9 Chloride Level 83 L 83 L 81 L Carbon Dioxide Level 25 24 24 Anion Gap 10 11 12 Blood Urea Nitrogen 12 11 10 Creatinine 0.80 0.71 0.73 Est Glomerular Filtrat Rate mL/min Glucose Level 113 79 102 Calcium Level 8.0 L 7.9 L 8.0 L Hemoglobin A1c 6.0 H Triglycerides Level 119 Cholesterol Level 98 L LDL Cholesterol, 40 Calculated HDL Cholesterol 34 Cholesterol/HDL 2.8 Ratio Thyroid Stimulating 2.150 Hormone (TSH) Medications Medication Current Medications IV Flush (NS 3 ml) 3 ml PER PROTOCOL IV ; Start 08/24/18 at 20:30 Ondansetron HCl (Zofran Inj) 4 mg Q6H PRN IV NAUSEA/VOMITING Last administered on 08/25/18at 07:58; Admin Dose 4 MG; Start 08/24/18 at 20:30 Metoclopramide HCl (Reglan) 10 mg Q6H PRN IV NAUSEA/VOMITING; Start 08/24/18 at 20:30 Acetaminophen (Tylenol Tab) 650 mg Q6H PRN PO .PAIN 1-3 OR TEMP Last administered on 08/25/18at 12:07; Admin Dose 650 MG; Start 08/24/18 at 20:30 Hydralazine HCl (Apresoline) 10 mg Q4H PRN IV ELEVATED BLOOD PRESSURE; Start 08/24/18 at 20:30 Sodium Chloride 500 ml @ 30 mls/hr [id number] Last administered on 08/25/18at 07:58; Admin Dose 30 MLS/HR; Start 08/25/18 at 08:00 Aspirin (Halfprin) 81 mg DAILY PO Last administered on 08/25/18at 11:40; Admin Dose 81 MG; Start 08/25/18 at 09:00 Latanoprost (Xalatan) 1 drop HS BOTH EYES ; Start 08/25/18 at 21:00 EZETIMIBE (Zetia) 10 mg HS PO ; Start 08/25/18 at 21:00 Levothyroxine Sodium (Synthroid) 50 mcg AC BREAKFAST PO ; Start 08/26/18 at 07:25 Amylase/Lipase/ Protease (Creon ([id number])) 1 cap WITH MEALS PO Last administered on 08/25/18at 11:40; Admin Dose 1 CAP; Start 08/25/18 at 11:50 Lorazepam (Ativan) 1 mg QHS PRN PO AGITATION/ANXIETY; Start 08/25/18 at 09:00 WAYNE FUENTES NP Aug 25, 2018 15:04
[2018-08-25] MEDS: EZETIMIBE 10 MG TAB PO SCH (21:22)
[2018-08-25] MEDS: LATANOPROST 0.005% 2.5 ML OPH BOTH EYES SCH (21:22)
[2018-08-26] VITALS (11 sets, daily range): BP systolic 129–157; BP diastolic 60–66; PULSE 51–78; RESP 19–20
[2018-08-26] MEDS: LEVOTHYROXINE 50 MCG TAB PO SCH (07:49)
[2018-08-26] MEDS: CREON (24K-76K-120K) 1 CAP PO SCH ×3 (07:49→17:24)
[2018-08-26] MEDS: LOSARTAN 25 MG TAB PO SCH (08:30)
[2018-08-26] MEDS: ASPIRIN (EC) 81 MG TAB PO SCH (08:30)
[2018-08-26] MEDS: ENOXAPARIN 40 MG/0.4 ML SYG SC SCH (08:37)
--- NOTE | 2018-08-26 08:47 | PN ---
Date/Time of Note Date/Time of Note DATE: 08/26/18 TIME: 08:45 Assessment/Plan VTE Prophylaxis Risk score (from Nsg)>0 risk: 3 SCD applied (from Nsg): Yes Pharmacological prophylaxis: LMWH Lines/Catheters IV Catheter Type (from Nrsg): Saline Lock Urinary Cath still in place: No Assessment/Plan Hospital Course SUBJECTIVE: Denies any abdominal pain, nausea, or vomiting. Complains of dizziness. OBJECTIVE: Physical Exam General: Obese, 73 year-old female lying in bed in no apparent distress. HEENT: Normocephalic, atraumatic. Eyes: Anicteric sclerae, conjunctivae clear. ENT: Nasal septum midline, oral mucosa moist. Neck supple, no JVD noticed. Respiratory: Bilaterally clear breath sounds. No use of accessory muscles of respiration. No adventitious breath sounds. Cardiovascular: S1, S2 heard. Regular rate and rhythm. Abdomen: Soft, nontender, and nondistended. Bowel sounds positive in all 4 quadrants. Genitourinary: Deferred. Extremities: No cyanosis, no clubbing, no edema. Peripheral pulses palpable. Neurologic: Cranial nerves II through XII grossly intact. The patient is awake, alert, and oriented. Skin: Normal skin turgor. No skin rashes. Labs & Vitals per chart ASSESSMENT & PLAN 73-year-old female with comorbidities including paroxysmal atrial fibrillation, hypertension, dyslipidemia, depression, diabetes mellitus type 2, hypothyroidism, and obesity, who came to the emergency room with chief complaint of epigastric abdominal pain and multiple episodes of nonbilious, nonbloody emesis, who was found to have evidence of underlying significant hyponatremia (sodium 114), who was admitted to inpatient setting for further treatment and evaluation. 1. Hyponatremia. -Etiology could be multifactorial. -Possible underlying SIADH. -S/P 3% saline as per nephrology. -Correct sodium levels slowly. 2. Abdominal pain with nausea/vomiting -CT of the abdomen and pelvis negative for any acute findings. -Most probably some viral gastroenteritis. -Continue symptomatic management. 3. Essential hypertension -Continue antihypertensives. 4. Diabetes mellitus type 2. -Hemoglobin A1c 6.0. -Oral medications on hold. -Monitor glycemic trends. 5. Dyslipidemia. -Continue Ezetimibe. 6. Hypothyroidism -Continue Synthroid. 7. History of paroxysmal atrial fibrillation -Currently in sinus rhythm. 8. Depression. -Fluoxetine on hold because of underlying hyponatremia. 9. Glaucoma. -Continue eyedrops. 10. Chronic constipation. -On Linzess at home. 11. Anemia. -Normocytic and normochromic -Etiology unclear. -Monitor H&H closely. 12. Obesity. -BMI 34 kg/m. -Will advise weight reduction. 13. Fluids, electrolytes, and nutrition. -Renal diet. 14. DVT prophylaxis. -Subcutaneous Lovenox. 15. Plan. -Continue to monitor electrolyte levels closely. -Correct sodium levels slowly. -Await clinical improvement before discharging the patient home. The patient was seen in collaboration with Dr. Roblero. Result Diagram: 08/26/18 0603 08/26/18 0603 Results 24hrs Laboratory Tests Test 08/25/18 11:03 08/25/18 14:55 08/25/18 17:24 08/25/18 21:54 Sodium Level 117 *L 117 *L 117 *L 122 L Potassium Level 3.9 3.9 4.1 3.9 Chloride Level 81 L 81 L 83 L 88 L Carbon Dioxide Level 24 23 24 24 Anion Gap 12 13 10 10 Blood Urea Nitrogen 10 10 9 9 Creatinine 0.73 0.71 0.78 0.71 Est Glomerular Filtrat Rate mL/min Glucose Level 102 132 108 102 Calcium Level 8.0 L 7.8 L 8.4 8.7 Test 08/26/18 06:03 White Blood Count 2.8 #L Red Blood Count 4.07 L Hemoglobin 11.9 L Hematocrit 34.5 L Mean Corpuscular 84.8 Volume Mean Corpuscular 29.2 Hemoglobin Mean Corpuscular 34.5 Hemoglobin Concent Red Cell 12.7 Distribution Width Platelet Count 324 Mean Platelet Volume 8.9 Immature 0.400 Granulocytes % Neutrophils % 46.0 Lymphocytes % 36.4 Monocytes % 16.1 H Eosinophils % 0.4 Basophils % 0.7 Nucleated Red Blood 0.0 Cells % Immature 0.010 Granulocytes # Neutrophils # 1.3 L Lymphocytes # 1.0 Monocytes # 0.5 Eosinophils # 0.0 Basophils # 0.0 Nucleated Red Blood 0.0 Cells # Sodium Level 129 L Exam/Review of Systems Exam Vitals Vital Signs Date Temp Pulse Resp B/P (MAP) Pulse Ox O2 O2 Flow FiO2 Time Delivery Rate 08/26/18 59 08:01 08/26/18 97.8 20 146/65 93 07:57 (92) 08/24/18 Room Air 20:36 Intake and Output 08/25/18 08/25/18 08/26/18 1515:00 23:00 07:00 IntakeIntake Total 2000 ml 600 ml OutputOutput Total 6 ml 5 ml BalanceBalance 1994 ml 595 ml Results Results 24hrs Laboratory Tests Test 08/25/18 11:03 08/25/18 14:55 08/25/18 17:24 08/25/18 21:54 Sodium Level 117 *L 117 *L 117 *L 122 L Potassium Level 3.9 3.9 4.1 3.9 Chloride Level 81 L 81 L 83 L 88 L Carbon Dioxide Level 24 23 24 24 Anion Gap 12 13 10 10 Blood Urea Nitrogen 10 10 9 9 Creatinine 0.73 0.71 0.78 0.71 Est Glomerular Filtrat Rate mL/min Glucose Level 102 132 108 102 Calcium Level 8.0 L 7.8 L 8.4 8.7 Test 08/26/18 06:03 White Blood Count 2.8 #L Red Blood Count 4.07 L Hemoglobin 11.9 L Hematocrit 34.5 L Mean Corpuscular 84.8 Volume Mean Corpuscular 29.2 Hemoglobin Mean Corpuscular 34.5 Hemoglobin Concent Red Cell 12.7 Distribution Width Platelet Count 324 Mean Platelet Volume 8.9 Immature 0.400 Granulocytes % Neutrophils % 46.0 Lymphocytes % 36.4 Monocytes % 16.1 H Eosinophils % 0.4 Basophils % 0.7 Nucleated Red Blood 0.0 Cells % Immature 0.010 Granulocytes # Neutrophils # 1.3 L Lymphocytes # 1.0 Monocytes # 0.5 Eosinophils # 0.0 Basophils # 0.0 Nucleated Red Blood 0.0 Cells # Sodium Level 129 L Medications Medication Current Medications IV Flush (NS 3 ml) 3 ml PER PROTOCOL IV ; Start 08/24/18 at 20:30 Ondansetron HCl (Zofran Inj) 4 mg Q6H PRN IV NAUSEA/VOMITING Last administered on 08/25/18at 07:58; Admin Dose 4 MG; Start 08/24/18 at 20:30 Metoclopramide HCl (Reglan) 10 mg Q6H PRN IV NAUSEA/VOMITING; Start 08/24/18 at 20:30 Acetaminophen (Tylenol Tab) 650 mg Q6H PRN PO .PAIN 1-3 OR TEMP Last administered on 08/25/18 12:07; Admin Dose 650 MG; Start 08/24/18 at 20:30 Hydralazine HCl (Apresoline) 10 mg Q4H PRN IV ELEVATED BLOOD PRESSURE; Start 08/24/18 at 20:30 Aspirin (Halfprin) 81 mg DAILY PO Last administered on 08/26/18 08:30; Admin Dose 81 MG; Start 08/25/18 at 09:00 Latanoprost (Xalatan) 1 drop HS BOTH EYES Last administered on 08/25/18 21:22; Admin Dose 1 DROP; Start 08/25/18 at 21:00 EZETIMIBE (Zetia) 10 mg HS PO Last administered on 08/25/18 21:22; Admin Dose 10 MG; Start 08/25/18 at 21:00 Levothyroxine Sodium (Synthroid) 50 mcg AC BREAKFAST PO Last administered on 08/26/18 07:49; Admin Dose 50 MCG; Start 08/26/18 at 07:25 Amylase/Lipase/ Protease (Creon ([id number])) 1 cap WITH MEALS PO Last administered on 08/26/18 07:49; Admin Dose 1 CAP; Start 08/25/18 at 11:50 Lorazepam (Ativan) 1 mg QHS PRN PO AGITATION/ANXIETY; Start 08/25/18 at 09:00 Enoxaparin Sodium (Lovenox) 40 mg DAILY SC Last administered on 08/26/18 08:37; Admin Dose 40 MG; Start 08/26/18 at 09:00 Losartan Potassium (Cozaar) 25 mg DAILY PO Last administered on 08/26/18 08:30; Admin Dose 25 MG; Start 08/26/18 at 09:00 WAYNE FUENTES NP Aug 26, 2018 08:47
--- NOTE | 2018-08-26 10:31 | PN ---
DATE: 08/26/2018 SUBJECTIVE: The patient is stable. No events overnight. No fevers, chills, nausea, vomiting. OBJECTIVE: VITAL SIGNS: Blood pressure is 146/65, respiration 20, pulse 65, temperature 97.8. HEENT: Head is normocephalic. NECK: Supple. HEART: Regular rate. LUNGS: Show diminished breath sounds at the base. ABDOMEN: Soft, nontender to palpation. No rebound or guarding. EXTREMITIES: Negative for clubbing, cyanosis, no edema. DERMATOLOGIC: No rashes. MUSCULOSKELETAL: No joint effusion. NEUROLOGIC: No change in exam. MEDICATIONS: The patient's medications have been reviewed. LABORATORY DATA: Shows sodium of 129, patient's urinalysis shows a urine sodium of 100, osmolarity i s 310. ASSESSMENT AND PLAN: 1. Hyponatremia, etiology is unclear, possibly due to syndrome of inappropriate antidiuretic hormone . The patient's urine studies were reviewed. Etiology of SIADH may have been secondary to SSRI. Th e patient was placed on 3% sodium chloride. The patient's sodium levels improved approximately 10 mE q in the last 24 hours and 16 mEq in 48 hours. At this point, will discontinue 3% sodium chloride. Continue to monitor serial sodium levels. Will ensure correction of no more than 10 to 12 mEq in any 24-hour period. 2. Hypertension. Monitor blood pressure regimen. 3. Diabetes. Continue current insulin regimen. 4. Anemia. Continue to monitor hemoglobin and hematocrit levels. 5. Glaucoma. Continue to monitor. Dictated By: ELIZABETH LORA/JILLIAN Conf#: [id number] DID#: [id number] CC: NEHEMIAH MARTINES MD;*EndCC*
[2018-08-26] MEDS: LATANOPROST 0.005% 2.5 ML OPH BOTH EYES SCH (21:37)
[2018-08-26] MEDS: EZETIMIBE 10 MG TAB PO SCH (21:37)
[2018-08-27] VITALS: BP 148/66; PULSE 73; PULSE 90; RESP 19
[2018-08-27 04:00] VITALS: BP 156/71; PULSE 79; PULSE 81; RESP 19
[2018-08-27] MEDS: LEVOTHYROXINE 50 MCG TAB PO SCH (06:52)
[2018-08-27 07:48] VITALS: BP 132/64; PULSE 60; RESP 19
[2018-08-27 08:01] VITALS: PULSE 62
[2018-08-27] MEDS: ASPIRIN (EC) 81 MG TAB PO SCH (08:06)
[2018-08-27] MEDS: CREON (24K-76K-120K) 1 CAP PO SCH ×2 (08:06→11:55)
[2018-08-27] MEDS: LOSARTAN 25 MG TAB PO SCH (08:07)
[2018-08-27] MEDS: ENOXAPARIN 40 MG/0.4 ML SYG SC SCH (08:10)
--- NOTE | 2018-08-27 10:46 | PN ---
DATE: 08/27/2018 SUBJECTIVE: The patient is stable, no events overnight. No fevers, chills, nausea, vomiting. OBJECTIVE: VITAL SIGNS: Blood pressure is 132/64, respiration 19, pulse 60, temperature 98.8. HEENT: Head is normocephalic. NECK: Supple. HEART: Regular rate. LUNGS: Show diminished breath sounds at the base. ABDOMEN: Soft, nontender to palpation without rebound or guarding. EXTREMITIES: Negative for clubbing, cyanosis, no edema. DERMATOLOGIC: No rashes. MUSCULOSKELETAL: No joint effusion. NEUROLOGIC: No change in exam. MEDICATIONS: Reviewed. LABORATORY DATA: Has been reviewed. ASSESSMENT AND PLAN: 1. Hyponatremia, etiology is possibly due to volume depletion, possible syndrome of inappropriate an tidiuretic hormone. The patient is status post 3% sodium chloride with improvement of sodium levels. The patient is advised to limit free water intake. Continue high osmolar diet. Continue to monito r. 2. Hypertension. Continue current blood pressure regimen. 3. Diabetes. Continue current insulin regimen. 4. Anemia. Monitor hemoglobin and hematocrit levels. 5. History of glaucoma. Continue to monitor. Dictated By: ELIZABETH SMYTH DO NR/NTS Conf#: [id number] DID#: [id number] CC: NEHEMIAH MARTINES MD;*End*
[2018-08-27 11:42] VITALS: BP 154/70; PULSE 57; RESP 19
[2018-08-27 12:01] VITALS: PULSE 61
--- NOTE | 2018-08-27 12:26 | PDOCDIS ---
Discharge Instructions DIAGNOSIS Discharge Diagnosis Hyponatremia CONDITION [id number] Patient Condition: [id number] Stable FOLLOW UP/APPOINTMENTS Follow-up Plan Stop taking fluoxetine. This likely caused your sodium level to be very low See your doctor in clinic within 1 week to have your blood work checked You can also make an appointment to see Dr Hdez. His office number is MARBELLA HEBERT MD Aug 27, 2018 12:26
--- NOTE | 2018-08-27 12:38 | DS ---
Date/Time of Note Date/Time of Note DATE: 08/27/18 TIME: 12:35 Discharge Summary Admission/Discharge Info Admit Date/Time Aug 24, 2018 at 19:45 Discharge Date/Time Discharge Diagnosis Hyponatremia Patient Condition: Stable Hospital Course Patient was found to have acute hyponatremia. Urine studies were consistent with SIADH. She was iniitally given NS in the ED causing improvement in Na level. She was then seen by nephrology who recommended 3% saline. The patient's SIADH was attributed to SSRI use. I counseled her on stopping this medication. When i saw her today she says she feels entirely normal and requests to be discharged. She will follow up with her PMD and Dr Hdez Home Meds Active Scripts Acetaminophen* (Tylenol*) 325 Mg Tablet, 2 TAB PO Q8 PRN for PAIN AND OR ELEVATED TEMP, #20 TAB Prov:FABIOLA SARMIENTO MD 10/12/17 Lorazepam* (Lorazepam*) 1 Mg Tablet, 1 MG ORAL QHS PRN for AGITATION/ANXIETY, #30 Prov:WILMER FORTUNE 04/05/17 Celecoxib* (Celebrex*) 200 Mg Capsule, 200 MG PO DAILY PRN for PAIN for 30 Days, CAP Prov:WILMER FORTUNE 04/05/17 Hydrocodone Bit-Acetaminophen* (Grayling*) 5-325 Mg Tab, 1 TAB PO Q6 PRN for PAIN, #20 TAB Prov:DINH FRIED MD 01/10/15 Reported Medications Spironolactone* (Spironolactone*) 100 Mg Tablet, 25 MG PO DAILY, TAB 04/04/17 Valsartan* (Diovan*) 80 Mg Tablet, 80 MG PO DAILY, TAB 10/02/16 Linaclotide (LINZESS) 145 Mcg Capsule, 145 MCG PO DAILY, #30 CAP 10/02/16 Vwzesz-Ynmwzgay-Xxgcuru* (Manoj MEHTA* 24,000) 24,000 L-76,000-120,000 Unit Capsule., 1 CAP PO WITH MEALS, CAP 10/02/16 Fluoxetine Hcl* (Fluoxetine Hcl*) 10 Mg Capsule, 10 MG ORAL DAILY, #30 10/02/16 Topiramate* (Topiramate*) 25 Mg Tablet, 25 MG ORAL BID, #60 10/02/16 Doxazosin Mesylate* (Doxazosin Mesylate*) 4 Mg Tablet, 4 MG ORAL DAILY, #30 10/02/16 Metformin* (Glucophage*) 500 Mg Tab, 500 MG ORAL BID, #60 10/02/16 Allopurinol* (Allopurinol*) 300 Mg Tablet, 300 MG ORAL DAILY, #30 10/02/16 Bimatoprost* (Lumigan*) 0.01%-2.5 Ml Opht Drops, 1 DROP BOTH EYES HS, EA 01/10/15 Cholecalciferol* (Vitamin D3*) 2,000 Unit Cap, 2000 UNIT PO DAILY, CAP 01/10/15 Fish Oil/Downey-3 Fatty Acids (Downey 3 Fish Oil Softgel) 1 Cap.ec Capsule.dr, 2000 MG PO DAILY, CAP 01/10/15 Ezetimibe* (Zetia*) 10 Mg Tablet, 10 MG PO HS, TAB 01/10/15 Naltrexone Hcl (Depade) 50 Mg Tablet, 50 MG PO DAILY 01/10/15 Febuxostat* (Uloric*) 80 Mg Tablet, 80 MG PO DAILY, TAB 01/10/15 Aspirin (Low Dose Aspirin) 81 Mg Tablet., 81 MG PO DAILY 01/10/15 Levothyroxine Sodium* (Synthroid*) 50 Mcg Tablet, 50 MCG PO AC BREAKFAST, TAB 01/10/15 Exenatide Microspheres (Bydureon) 2 Mg Vial, 2 MG SQ Q7D, VIAL 01/10/15 Follow-up Plan Stop taking fluoxetine. This likely caused your sodium level to be very low See your doctor in clinic within 1 week to have your blood work checked You can also make an appointment to see Dr Hdez. His office number is Primary Care Provider Not On Staff Doctor Pending Labs Laboratory Tests Test 08/26/18 17:56 08/27/18 00:52 08/27/18 06:06 Sodium Level 129 131 132 mmol/L (135-144) mmol/L (135-144) mmol/L (135-144) White Blood Count 4.9 10^3/ul (4.8-10.8) Red Blood Count 4.15 10^6/ul (4.20-5.40 ) Hemoglobin 12.0 g/dl (12.0-16.0) Hematocrit 35.2 % (37.0-47.0) Mean Corpuscular 84.8 Volume fl (82.0-101.0) Mean Corpuscular 28.9 Hemoglobin pg (29.0-33.0) Mean Corpuscular 34.1 Hemoglobin Concent g/dl (32.0-37.0) Red Cell 13.2 % (11.5-14.5) Distribution Width Platelet Count 323 10^3/UL (140-415) Mean Platelet 8.8 fl (7.4-10.4) Volume Immature 0.400 Granulocytes % % (0.001-0.429) Neutrophils % % (39.0-77.0) Segmented 38 % (39-77) Neutrophils % (Manual) Band Neutrophils % 2 % (0-4) (Manual) Lymphocytes % % (15.0-51.0) Lymphocytes % 55 % (15-51) (Manual) Monocytes % % (0.0-11.0) Monocytes % 5 % (0-11) (Manual) Eosinophils % % (0.0-7.0) Basophils % % (0.0-2.0) Nucleated Red Blood 0.0 Cells % /100WBC (0.0-0.0) Immature 0.020 Granulocytes # 10^3/ul (0.0-0.031 ) Neutrophils # 10^3/ul (1.6-7.5) Neutrophils # 1.9 (Manual) 10^3/ul (1.6-7.5) Band Neutrophils # 0.0 10^3/ul (0.0-0.6) Lymphocytes 2.6 (Manual) 10^3/ul (0.8-2.9) Lymphocytes # 10^3/ul (0.8-2.9) Monocytes # 10^3/ul (0.3-0.9) Monocytes # 0.2 (Manual) 10^3/ul (0.3-0.9) Eosinophils # 10^3/ul (0.0-0.5) Basophils # 10^3/ul (0.0-0.1) Nucleated Red Blood 10^3/ul (0.0-0.0) Cells # Platelet Estimate NORMAL Spherocytes 1+ (0-0) Potassium Level 3.9 mmol/L (3.5-5.1) Chloride Level 96 mmol/L (97-110) Carbon Dioxide 28 mmol/L (21-31) Level Anion Gap 9 (5-13) Blood Urea 17 mg/dl (7-20) Nitrogen Creatinine 0.87 mg/dl (0.44-1.00) Est Glomerular mL/min (>60) Filtrat Rate mL/min Glucose Level 91 mg/dl (70-220) Calcium Level 8.9 mg/dl (8.4-10.2) Phosphorus Level 3.1 mg/dl (2.5-4.9) Magnesium Level 2.0 mg/dl (1.7-2.5) MARBELLA HEBERT MD Aug 27, 2018 12:38
== END 2018-08-27 13:06 | disposition home or self-care (01) | DRG 645 ==
LOC: E/R 17:43 → TEL 19:45 → CANRESERV 20:34
PROVIDERS: ADMIT Family Medicine; ATTEND Internal Medicine
DX: E22.2 Syndrome of inappropriate secretion of antidiuretic hormone (principal); I48.0 Paroxysmal atrial fibrillation; E66.9 Obesity, unspecified; Z68.34 Body mass index [BMI] 34.0-34.9, adult; K59.09 Other constipation; F32.9 Major depressive disorder, single episode, unspecified; E03.9 Hypothyroidism, unspecified; E78.5 Hyperlipidemia, unspecified; I10 Essential (primary) hypertension; E11.9 Type 2 diabetes mellitus without complications; H40.9 Unspecified glaucoma; D64.9 Anemia, unspecified; Z90.49 Acquired absence of other specified parts of digestive tract; Z79.84 Long term (current) use of oral hypoglycemic drugs
CPT/HCPCS: 36415; 71045; 74177; 80048; 80053; 80061; 81003; 82150; 83036; 83690; 83735; 83930; 83935; 84100; 84295; 84300; 84443; 84484; 85025; 85610; 85730; 87086; 93005; 96361; 96374; 96375; J1650; J2270; J2405; J2765; J7030; Q9967